=== PATIENT | male | born 1955 | race Caucasian/White ===

== ENCOUNTER 2017-07-29 18:42 | Emergency (ER) | payer MEDICAID ==
[2017-07-29 19:34] VITALS: BP 134/85
--- NOTE | 2017-07-29 19:48 | EDM.PDOC ---
ED HPI GENERAL MEDICAL PROBLEM - General Chief Complaint: Upper Extremity Injury/Pain Stated Complaint: BULGE IN WRIST Time Seen by Provider: 07/29/17 19:43 Source of Information: Reports: Patient, RN Notes Reviewed History Limitations: Reports: No Limitations - History of Present Illness INITIAL COMMENTS - FREE TEXT/NARRATIVE: 62-year-old gentleman presents emergency department today with complaint of swelling over his right wrist, he denies any trauma is not taking any blood thinners he states it is really developed over the last hour did go to chiropractor today lab work done on his back, nothing was done to his wrist. Right Wrist Pain Score (Numeric/FACES): 5 - Related Data Allergies Allergy/AdvReac Type Severity Reaction Status Date / Time No Known Allergies Allergy Verified 07/29/17 19:17 Home Meds: Home Meds Carvedilol [Carvedilol] 25 mg PO BID 07/29/17 [History] DULoxetine HCl [Duloxetine HCl] 60 mg PO DAILY 07/29/17 [History] Losartan Potassium [Losartan Potassium] 25 mg PO BEDTIME 07/29/17 [History] Omeprazole [Omeprazole] 20 mg PO DAILY 07/29/17 [History] Phenytoin Sodium Extended [Phenytek] 400 mg PO DAILY 07/29/17 [History] hydrOXYzine Pamoate [Hydroxyzine Pamoate] 25 mg PO DAILY 07/29/17 [History] traZODone HCl [Trazodone HCl] 200 mg PO BEDTIME 07/29/17 [History] Past Medical History HEENT History: Reports: Impaired Vision Cardiovascular History: Reports: Arrhythmia, Automatic Implantable Cardioverter Defibrillators Musculoskeletal History: Reports: Arthritis, Fracture Neurological History: Reports: Concussion, Seizure Psychiatric History: Reports: Anxiety - Past Surgical History Cardiovascular Surgical History: Reports: AICD Musculoskeletal Surgical History: Reports: Hip Replacement, Other (See Below) Other Musculoskeletal Surgeries/Procedures:: arm repair Social & Family History - Tobacco Use Smoking Status *Q: Never Smoker - Caffeine Use Caffeine Use: Reports: Tea - Recreational Drug Use Recreational Drug Use: No Review of Systems - Review of Systems Review Of Systems: See Below Respiratory: Reports: No Symptoms Cardiovascular: Reports: No Symptoms GI/Abdominal: Reports: No Symptoms Musculoskeletal: Reports: Joint Pain Skin: Reports: Bruising, Change in Color, Other ED EXAM, GENERAL - Physical Exam Exam: See Below Free Text/Narrative:: Examination of the right wrist he does have a hematoma about the size of a golf ball on the dorsal aspect of the wrist he has full range of motion of the wrist radial pulse is +2 Exam Limited By: No Limitations General Appearance: Alert, WD/WN, No Apparent Distress Course - Vital Signs Last Recorded V/S: Last Vital Signs Temp 97.3 F 07/29/17 19:32 Pulse 90 07/29/17 19:32 Resp 16 07/29/17 19:32 BP 134/85 07/29/17 19:32 Pulse Ox 96 07/29/17 19:32 - Orders/Labs/Meds Labs: Laboratory Tests 07/29/17 Range/Units 19:54 WBC 4.1 L (4.5-11.0) K/uL RBC 3.14 L (4.30-5.90) M/uL Hgb 11.1 L (12.0-15.0) g/dL Hct 31.5 L (40.0-54.0) % MCV 100 H (80-98) fL MCH 35 H (27-31) pg MCHC 35 (32-36) % Plt Count 132 L (150-400) K/uL Neut % (Auto) 47 (36-66) % Lymph % (Auto) 30 (24-44) % [place] % (Auto) 20 H (2-6) % Eos % (Auto) 3 (2-4) % Baso % (Auto) 1 (0-1) % Departure - Departure Time of Disposition: 20:58 Disposition: Home, Self-Care 01 Condition: Good Clinical Impression: Hematoma - Discharge Information Referrals: PCP,None [Primary Care Provider] - Forms: ED Department Discharge Additional Instructions: Continue to use the compression wrap and tell the hematoma subsides, Please followup with your primary care provider in 3-5 days if not better, please call return to the emergency department with worsening of symptoms. 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 This note was dictated using [employer] voice recognition software please call with any questions.
== END 2017-07-29 21:08 | disposition home or self-care (01) ==
LOC: JP.ED 18:42
DX: M79.81 Nontraumatic hematoma of soft tissue (principal); M19.90 Unspecified osteoarthritis, unspecified site; F41.9 Anxiety disorder, unspecified; Z79.899 Other long term (current) drug therapy; Z95.810 Presence of automatic (implantable) cardiac defibrillator; Z96.649 Presence of unspecified artificial hip joint; Z98.890 Other specified postprocedural states
CPT/HCPCS: 36415; 85025; 99283; 99284

== ENCOUNTER 2019-06-07 20:34 | Emergency (ER) | payer MEDICAID ==
[2019-06-07 20:54] VITALS: BP 97/70; PULSE 72
--- NOTE | 2019-06-07 21:01 | EDM.PDOC ---
ED HPI GENERAL MEDICAL PROBLEM - General Chief Complaint: Genitourinary Problem Stated Complaint: POTASSIUM Time Seen by Provider: 06/07/19 21:00 Source of Information: Reports: Patient, Provider History Limitations: Reports: No Limitations - History of Present Illness INITIAL COMMENTS - FREE TEXT/NARRATIVE: 64-year-old male in for a potassium recheck. Patient is been having ongoing problem with peripheral edema, being followed by his primary provider. Some labs were drawn yesterday, and the provider was called today that his potassium was 9.0. He was sent in for verification. He has no palpitations, increasing shortness of breath but does still struggle with a peripheral edema and weight gain. Onset: Gradual Duration: Week(s): (Symptoms have been worsening over the past 4 weeks) Associated Symptoms: Reports: Shortness of Breath (With activity). Denies: Cough - Related Data Allergies Allergy/AdvReac Type Severity Reaction Status Date / Time No Known Allergies Allergy Verified 06/07/19 20:53 Home Meds: Home Meds Carvedilol 25 mg PO BID 07/29/17 [History] Omeprazole 20 mg PO DAILY 07/29/17 [History] traZODone HCl [Trazodone HCl] 200 mg PO BEDTIME 07/29/17 [History] Amiodarone [Cordarone] 400 mg PO DAILY 06/07/19 [History] Calcium Carbonate/Vitamin D3 [Calcium 600 + Vit D Tablet] 1 tab PO TID 06/07/19 [History] Cholecalciferol (Vitamin D3) [Vitamin D3] 1,000 unit PO DAILY 06/07/19 [History] Cyanocobalamin (Vitamin B-12) [Vitamin B12] 2,500 mcg PO DAILY 06/07/19 [History ] Folic Acid 20 mg PO DAILY 06/07/19 [History] Furosemide 1 tab PO DAILY 06/07/19 [History] Gabapentin [Neurontin] 600 mg PO BEDTIME 06/07/19 [History] Iron Polysaccharide Complex [Ferric X-150] 150 mg PO DAILY 06/07/19 [History] Multivitamin [Multivitamins] 1 tab PO DAILY 06/07/19 [History] Sacubitril/Valsartan [Entresto 97 mg-103 mg Tablet] 1 tab PO BID 06/07/19 [ History] Thiamine [Vitamin B-1] 100 mg PO DAILY 06/07/19 [History] Vitamin E 100 unit PO DAILY 06/07/19 [History] busPIRone HCl [Buspirone HCl] 10 mg PO BID 06/07/19 [History] Past Medical History HEENT History: Reports: Impaired Vision Cardiovascular History: Reports: Arrhythmia, Automatic Implantable Cardioverter Defibrillators Genitourinary History: Reports: Chronic Renal Insuffiency Musculoskeletal History: Reports: Arthritis, Fracture Neurological History: Reports: Concussion, Seizure Psychiatric History: Reports: Anxiety Endocrine/Metabolic History: Reports: Obesity/BMI 30+ Hematologic History: Reports: Blood Transfusion(s) - Past Surgical History Cardiovascular Surgical History: Reports: AICD GI Surgical History: Reports: Colonoscopy Musculoskeletal Surgical History: Reports: Hip Replacement, Other (See Below) Other Musculoskeletal Surgeries/Procedures:: arm repair Social & Family History - Tobacco Use Smoking Status *Q: Never Smoker - Caffeine Use Caffeine Use: Reports: Tea - Alcohol Use Days Per Week of Alcohol Use: 4 Number of Drinks Per Day: 2 Total Drinks Per Week: 8 - Recreational Drug Use Recreational Drug Use: Yes Drug Use in Last 12 Months: No ED ROS GENERAL - Review of Systems Review Of Systems: See Below Constitutional: Reports: Weakness. Denies: Fever, Chills Respiratory: Reports: Shortness of Breath Cardiovascular: Denies: Chest Pain (With activity), Palpitations GI/Abdominal: Denies: Nausea, Vomiting Skin: Reports: Bruising ED EXAM, GENERAL - Physical Exam Exam: See Below Exam Limited By: No Limitations General Appearance: Alert, No Apparent Distress Respiratory/Chest: No Respiratory Distress, Lungs Clear Cardiovascular: Regular Rate, Rhythm GI/Abdominal: Soft, Non-Tender Extremities: Pedal Edema (Symmetric 2+ pitting edema) Neurological: Alert, Oriented Course - Vital Signs Last Recorded V/S: Last Vital Signs Temp 95.9 F 06/07/19 20:58 Pulse 72 06/07/19 20:58 Resp 16 06/07/19 20:58 BP 97/70 06/07/19 20:58 Pulse Ox 93 L 06/07/19 20:58 - Orders/Labs/Meds Labs: Laboratory Tests 06/07/19 Range/Units 21:00 Sodium 125 L (140-148) mmol/L Potassium 4.7 (3.6-5.2) mmol/L Chloride 90 L (100-108) mmol/L Carbon Dioxide 23 (21-32) mmol/L Anion Gap 16.7 H (5.0-14.0) mmol/L BUN 37 H (7-18) mg/dL Creatinine 1.9 H (0.8-1.3) mg/dL Est Cr Clr Drug Dosing 37.21 mL/min Estimated GFR (MDRD) 36 L (>60) Glucose 92 (74-106) mg/dL Calcium 8.4 L (8.5-10.1) mg/dL - Re-Assessments/Exams Free Text/Narrative Re-Assessment/Exam: 06/07/19 21:35 CBC and BMP were obtained. Potassium returned 4.7. Earlier results were obviously an error. Sodium is 125 but I do not know his baseline is. He has several appointments coming up in the near future with cardiology and nephrology , a copy of his labs were given to the patient and he will take them with to his appointments. No medication changes. Departure - Departure Time of Disposition: 21:42 Disposition: Home, Self-Care 01 Clinical Impression: Peripheral edema Renal failure Qualifiers: Renal failure chronicity: chronic - Discharge Information Instructions: Edema Referrals: PCP,None [Primary Care Provider] - Forms: ED Department Discharge Care Plan Goals: Continue your current medications and follow-up appointments as scheduled. Avoid extra salt intake. Return to the emergency room if worsening such as increased shortness of breath or pain.
== END 2019-06-07 21:42 | disposition home or self-care (01) ==
LOC: JP.ED 20:34
DX: R60.9 Edema, unspecified (principal); N18.9 Chronic kidney disease, unspecified; F41.9 Anxiety disorder, unspecified; E66.9 Obesity, unspecified; Z68.30 Body mass index [BMI] 30.0-30.9, adult; Z79.899 Other long term (current) drug therapy
CPT/HCPCS: 36415; 80048; 99284

== ENCOUNTER 2019-11-03 12:06 | Emergency (ER) | payer MEDICAID ==
[2019-11-03] MEDS ORDERED: fentaNYL 100 MCG/2 ML SDV IVPUSH ONE ×2 (12:58→14:37)
--- NOTE | 2019-11-03 13:00 | EDM.PDOC ---
ED HPI GENERAL MEDICAL PROBLEM - General Chief Complaint: Lower Extremity Injury/Pain Stated Complaint: MEDICAL VIA [facility] Time Seen by Provider: 11/03/19 12:56 Source of Information: Reports: Patient, Family, RN Notes Reviewed History Limitations: Reports: No Limitations - History of Present Illness INITIAL COMMENTS - FREE TEXT/NARRATIVE: 64-year-old gentleman presents emergency department today via EMS services, he slipped and fell on the ice this morning and his right ankle twisted underneath him he now is experiencing severe pain in that right ankle it is splinted and wrapped at this time. Right Ankle Pain Score (Numeric/FACES): 9 - Related Data Allergies Allergy/AdvReac Type Severity Reaction Status Date / Time No Known Allergies Allergy Verified 11/03/19 12:22 Home Meds: Home Meds Omeprazole 20 mg PO DAILY 07/29/17 [History] carvediloL [Carvedilol] 25 mg PO BID 07/29/17 [History] traZODone HCl [Trazodone HCl] 200 mg PO BEDTIME 07/29/17 [History] Calcium Carbonate/Vitamin D3 [Calcium 600 + Vit D Tablet] 1 tab PO TID 06/07/19 [History] Cholecalciferol (Vitamin D3) [Vitamin D3] 1,000 unit PO DAILY 06/07/19 [History] Cyanocobalamin (Vitamin B-12) [Vitamin B12] 2,500 mcg PO DAILY 06/07/19 [History ] Folic Acid 20 mg PO DAILY 06/07/19 [History] Furosemide 1 tab PO DAILY 06/07/19 [History] Gabapentin [Neurontin] 600 mg PO BEDTIME 06/07/19 [History] Iron Polysaccharide Complex [Ferric X-150] 150 mg PO DAILY 06/07/19 [History] Multivitamin [Multivitamins] 1 tab PO DAILY 06/07/19 [History] Sacubitril/Valsartan [Entresto 97 mg-103 mg Tablet] 1 tab PO BID 06/07/19 [ History] Thiamine [Vitamin B-1] 100 mg PO DAILY 06/07/19 [History] Vitamin E 100 unit PO DAILY 06/07/19 [History] busPIRone HCl [Buspirone HCl] 10 mg PO BID 06/07/19 [History] Past Medical History HEENT History: Reports: Impaired Vision Cardiovascular History: Reports: Arrhythmia, Automatic Implantable Cardioverter Defibrillators Genitourinary History: Reports: Chronic Renal Insuffiency Musculoskeletal History: Reports: Arthritis, Fracture Neurological History: Reports: Concussion, Seizure Psychiatric History: Reports: Anxiety Endocrine/Metabolic History: Reports: Obesity/BMI 30+ Hematologic History: Reports: Blood Transfusion(s) - Past Surgical History Cardiovascular Surgical History: Reports: AICD GI Surgical History: Reports: Colonoscopy Musculoskeletal Surgical History: Reports: Hip Replacement, Other (See Below) Other Musculoskeletal Surgeries/Procedures:: arm repair Social & Family History - Tobacco Use Smoking Status *Q: Never Smoker - Caffeine Use Caffeine Use: Reports: Tea - Recreational Drug Use Recreational Drug Use: No Review of Systems - Review of Systems Review Of Systems: See Below Musculoskeletal: Reports: Joint Pain (Ankle pain) Neurological: Reports: No Symptoms ED EXAM, GENERAL - Physical Exam Exam: See Below Free Text/Narrative:: Examination the right ankle is splinted and wrapped pedal pulses +2 it does have an obvious deformity Exam Limited By: No Limitations General Appearance: Alert, WD/WN, No Apparent Distress ED TRAUMA EXTREMITY PROCEDURES - Splinting Right Lower Extremity Splint Site: Right ankle Pre-Procedure NV Status: Normal Post-Procedure NV Status: Normal Splint Material: Fiberglass Splint Design: Posterior Applied & Form Fitted By: Provider, Nurse Provider Post-Splint Application NV Check: NV Status Normal, Good Position Complications: No Course - Vital Signs Last Recorded V/S: Last Vital Signs Temp 96.4 F 11/03/19 12:24 Pulse 84 11/03/19 12:24 Resp 16 11/03/19 12:24 BP 114/83 11/03/19 12:24 Pulse Ox 94 L 11/03/19 12:24 - Orders/Labs/Meds Meds: Medications Discontinued Medications Generic Name Dose Route Start Last Admin Trade Name Freq PRN Reason Stop Dose Admin Fentanyl 100 mcg 11/03/19 12:58 11/03/19 13:08 Sublimaze IVPUSH 11/03/19 12:59 100 mcg ONETIME ONE Administration Fentanyl 100 mcg 11/03/19 14:37 11/03/19 15:20 Sublimaze IVPUSH 11/03/19 14:38 100 mcg ONETIME ONE Administration Departure - Departure Time of Disposition: 15:40 Disposition: DC/Tfer to Acute Hospital 02 Condition: Fair Clinical Impression: Tibia/fibula fracture Qualifiers: Encounter type: initial encounter Fracture type: closed Laterality: right Qualified Code(s): S82.201A - Unspecified fracture of shaft of right tibia, initial encounter for closed fracture; S82.401A - Unspecified fracture of shaft of right fibula, initial encounter for closed fracture - Discharge Information Referrals: David Rose MD [Primary Care Provider] - Forms: ED Department Discharge - Assessment/Plan Plan: Assessment Acuity = acute Site and laterality = oblique angulated fracture tib-fib right Etiology = secondary to a fall Manifestations = none Location of injury = Home Lab values = x-ray describes a fracture above Plan Initially called and discussed case with Dr. Martinez 1350 unfortunately did not have appropriate hardware to take care of this fracture, next call Dr. Hernandez at [address] [facility] also do not have the appropriate hardware to take care of this fracture, initially called [place] 1505, call back with acceptance from Dr. Holliday hospitalist pet adoption counselor [facility] kindly accepted the patient at 1530 he is placed in a posterior splint will be transported to [place] via EMS ground This note was dictated using [employer] voice recognition software please call with any questions on syntax or grammar.
--- NOTE | 2019-11-03 13:54 | CRLCR ---
INDICATION: Pain COMPARISON: none TECHNIQUE: Three-view right ankle FINDINGS: Fractures identified within the distal tibia and fibula with lateral angulation. The tibiotalar joint and subtalar joints remain anatomically aligned. Within the distal fibula there is a oblique fracture with mild medial displacement the distal fragment. Within the distal tibial metaphysis there is an oblique fracture with posterior and medial displacement of the distal fragment as well as 8-10 mm of foreshortening. No fractures are identified within the talus, calcaneus or base of the 5th metatarsal. IMPRESSION: Angulated oblique fractures noted within the distal right tibia and fibula. Dictated by Lei Christianson MD @ 11/03/2019 1:52:01 PM Dictated by: Lei Christianson MD @ 11/03/2019 13:52:06 (Electronically Signed)
[2019-11-03 15:47] VITALS: BP 122/81; PULSE 94
[2019-11-03] MEDS ORDERED: HYDROmorphone 1 MG/ML Syringe IVPUSH ONE (16:32)
== END 2019-11-03 17:49 ==
LOC: JP.ED 12:06
DX: S82.301A Unspecified fracture of lower end of right tibia, initial encounter for closed fracture (principal); S82.831A Other fracture of upper and lower end of right fibula, initial encounter for closed fracture; N18.9 Chronic kidney disease, unspecified; F41.9 Anxiety disorder, unspecified; E66.9 Obesity, unspecified; Z68.25 Body mass index [BMI] 25.0-25.9, adult; Z79.899 Other long term (current) drug therapy; W00.0XXA Fall on same level due to ice and snow, initial encounter
CPT/HCPCS: 29515; 73610; 96374; 96375; 96376; 99284; J1170; J3010

== ENCOUNTER 2020-05-23 11:38 | Emergency (ER) | payer MEDICAID ==
--- NOTE | 2020-05-23 12:30 | EDM.PDOC ---
ED HPI GENERAL MEDICAL PROBLEM - General Chief Complaint: Respiratory Problem Stated Complaint: TROUBLE BREATHING Time Seen by Provider: 05/23/20 12:29 Source of Information: Reports: Patient, Family (mother), Old Records History Limitations: Reports: No Limitations - History of Present Illness INITIAL COMMENTS - FREE TEXT/NARRATIVE: Shortness of breath markedly increasing in the last week. Patient states he cannot lie down because of his shortness of breath. He sleeps sitting up straight. Even minor exercise makes him markedly short of breath. Onset: Gradual Duration: Week(s): (1), Getting Worse Associated Symptoms: Reports: Shortness of Breath, Weakness - Related Data Allergies Allergy/AdvReac Type Severity Reaction Status Date / Time No Known Allergies Allergy Verified 05/23/20 12:12 Home Meds: Home Meds Omeprazole 20 mg PO DAILY 07/29/17 [History] carvediloL [Carvedilol] 25 mg PO BID 07/29/17 [History] traZODone HCl [Trazodone HCl] 200 mg PO BEDTIME 07/29/17 [History] Calcium Carbonate/Vitamin D3 [Calcium 600 + Vit D Tablet] 1 tab PO TID 06/07/19 [History] Cholecalciferol (Vitamin D3) [Vitamin D3] 1,000 unit PO DAILY 06/07/19 [History] Cyanocobalamin (Vitamin B-12) [Vitamin B12] 2,500 mcg PO DAILY 06/07/19 [History] Folic Acid 20 mg PO DAILY 06/07/19 [History] Furosemide 1 tab PO DAILY 06/07/19 [History] Gabapentin [Neurontin] 600 mg PO BEDTIME 06/07/19 [History] Iron Polysaccharide Complex [Ferric X-150] 150 mg PO DAILY 06/07/19 [History] Multivitamin [Multivitamins] 1 tab PO DAILY 06/07/19 [History] Thiamine [Vitamin B-1] 100 mg PO DAILY 06/07/19 [History] Vitamin E 100 unit PO DAILY 06/07/19 [History] busPIRone HCl [Buspirone HCl] 10 mg PO TID 06/07/19 [History] Past Medical History HEENT History: Reports: Impaired Vision Cardiovascular History: Reports: Arrhythmia, Automatic Implantable Cardioverter Defibrillators Genitourinary History: Reports: Chronic Renal Insuffiency Musculoskeletal History: Reports: Arthritis, Fracture Neurological History: Reports: Concussion, Seizure Psychiatric History: Reports: Anxiety Endocrine/Metabolic History: Reports: Obesity/BMI 30+ Hematologic History: Reports: Blood Transfusion(s) - Past Surgical History Cardiovascular Surgical History: Reports: AICD GI Surgical History: Reports: Colonoscopy Musculoskeletal Surgical History: Reports: Hip Replacement, Other (See Below) Other Musculoskeletal Surgeries/Procedures:: arm repair Social & Family History - Tobacco Use Smoking Status *Q: Never Smoker - Caffeine Use Caffeine Use: Reports: Tea - Alcohol Use Days Per Week of Alcohol Use: 7 Number of Drinks Per Day: 2 Total Drinks Per Week: 14 - Recreational Drug Use Recreational Drug Use: No ED ROS GENERAL - Review of Systems Review Of Systems: See Below Constitutional: Denies: Fever Respiratory: Reports: Shortness of Breath, Cough (Productive of white sputum). Denies: Wheezing Cardiovascular: Reports: Dyspnea on Exertion, Edema, Orthopnea, Other (Has an AICD but it hasn't defibrillated him). Denies: Palpitations, Syncope GI/Abdominal: Reports: Distension Skin: Reports: No Symptoms ED EXAM, GENERAL - Physical Exam Exam: See Below Exam Limited By: No Limitations General Appearance: Alert, Anxious Ears: Normal External Exam Nose: Normal Inspection Throat/Mouth: Normal Inspection Neck: Supple, Non-Tender Respiratory/Chest: Decreased Breath Sounds, Other (Faint bibasilar rales. Very faint breath sounds). No: Wheezing, Pleural Rub, Retractions Cardiovascular: Normal Peripheral Pulses, Regular Rate, Rhythm, Other (Pitting edema lower legs to the knees.) GI/Abdominal: Non-Tender, Distended Extremities: Pedal Edema (Marked lower ext. edema, pitting to knees) Neurological: Alert, Oriented Skin Exam: Warm, Dry Course - Vital Signs Text/Narrative:: obvious CHF on exam. Pt. immediately treated with lasix and neb. @14:20 I DISCUSSED PT. WITH HOSPITALIST IN [place]). Last Recorded V/S: Last Vital Signs Temp 35.8 C L 05/23/20 12:11 Pulse 85 05/23/20 13:52 Resp 17 05/23/20 13:52 BP 108/78 05/23/20 13:52 Pulse Ox 100 05/23/20 13:20 - Orders/Labs/Meds Orders: Active Orders 24 hr Category Date Time Status EKG Documentation Completion [RC] ASDIRECTED Care 05/23/20 12:41 Active RT Aerosol Therapy [RC] ASDIRECTED Care 05/23/20 12:43 Active UA W/MICROSCOPIC [URIN] Urgent Lab 05/23/20 12:40 Ordered Sodium Chloride 0.9% [Normal Saline] 1,000 ml Med 05/23/20 12:45 Active IV ASDIRECTED EKG 12 Lead [EK] Urgent Ther 05/23/20 12:40 Ordered Medication Orders Sodium Chloride (Normal Saline) 1,000 mls @ 75 mls/hr IV ASDIRECTED YOHAN Last Admin: 05/23/20 13:40 Dose: 75 mls/hr Documented by: ASHOK Labs: Laboratory Tests 05/23/20 05/23/20 05/23/20 Range/Units 12:46 12:46 12:46 WBC 5.1 (4.5-11.0) K/uL RBC 2.70 L (4.30-5.90) M/uL Hgb 10.3 L (12.0-15.0) g/dL Hct 30.6 L (40.0-54.0) % MCV 113 H (80-98) fL MCH 38 H (27-31) pg MCHC 34 (32-36) % Plt Count 88 L (150-400) K/uL PT 14.9 H (9.5-12.0) sec INR 1.41 H (0.80-1.20) Sodium (140-148) mmol/L Potassium (3.6-5.2) mmol/L Chloride (100-108) mmol/L Carbon Dioxide (21-32) mmol/L Anion Gap (5.0-14.0) mmol/L BUN (7-18) mg/dL Creatinine (0.8-1.3) mg/dL Est Cr Clr Drug Dosing mL/min Estimated GFR (MDRD) (>60) Glucose (74-106) mg/dL Lactic Acid (0.4-2.0) mmol/L Calcium (8.5-10.1) mg/dL Total Bilirubin (0.2-1.0) mg/dL AST (15-37) U/L ALT (12-78) U/L Alkaline Phosphatase (46-116) U/L Troponin I 0.017 (0.000-0.056) ng/mL NT-Pro-B Natriuret Pep (5-125) pg/mL Total Protein (6.4-8.2) g/dL Albumin (3.4-5.0) g/dL Globulin (2.3-3.5) g/dL Albumin/Globulin Ratio (1.2-2.2) 05/23/20 05/23/20 Range/Units 12:46 12:46 WBC (4.5-11.0) K/uL RBC (4.30-5.90) M/uL Hgb (12.0-15.0) g/dL Hct (40.0-54.0) % MCV (80-98) fL MCH (27-31) pg MCHC (32-36) % Plt Count (150-400) K/uL PT (9.5-12.0) sec INR (0.80-1.20) Sodium 127 L (140-148) mmol/L Potassium 5.0 (3.6-5.2) mmol/L Chloride 93 L (100-108) mmol/L Carbon Dioxide 26 (21-32) mmol/L Anion Gap 13.0 (5.0-14.0) mmol/L BUN 43 H (7-18) mg/dL Creatinine 1.6 H (0.8-1.3) mg/dL Est Cr Clr Drug Dosing 43.61 mL/min Estimated GFR (MDRD) 44 L (>60) Glucose 86 (74-106) mg/dL Lactic Acid 2.2 H (0.4-2.0) mmol/L Calcium 8.3 L (8.5-10.1) mg/dL Total Bilirubin 1.8 H (0.2-1.0) mg/dL AST 56 H (15-37) U/L ALT 56 (12-78) U/L Alkaline Phosphatase 106 (46-116) U/L Troponin I (0.000-0.056) ng/mL NT-Pro-B Natriuret Pep 13390 H (5-125) pg/mL Total Protein 6.3 L (6.4-8.2) g/dL Albumin 3.2 L (3.4-5.0) g/dL Globulin 3.1 (2.3-3.5) g/dL Albumin/Globulin Ratio 1.0 L (1.2-2.2) Meds: Medications Generic Name Dose Route Start Last Admin Trade Name Randolph PRN Reason Stop Dose Admin Sodium Chloride 1,000 mls @ 75 mls/hr 05/23/20 12:45 05/23/20 13:40 Normal Saline IV 75 mls/hr ASDIRECTED YOHAN Administration Discontinued Medications Generic Name Dose Route Start Last Admin Trade Name Randolph PRN Reason Stop Dose Admin Albuterol/Ipratropium 3 ml 05/23/20 12:43 05/23/20 13:19 Duoneb 3.0-0.5 Mg/3 Ml NEB 05/23/20 12:44 3 ml ONETIME ONE Administration Furosemide 40 mg 05/23/20 12:42 05/23/20 13:39 Lasix IVPUSH 05/23/20 12:43 40 mg ONETIME ONE Administration Departure - Departure Time of Disposition: 14:26 Disposition: DC/Tfer to Acute Hospital 02 Condition: Fair Clinical Impression: Congestive heart failure Qualifiers: Heart failure type: combined systolic and diastolic Heart failure chronicity: acute on chronic Qualified Code(s): I50.43 - Acute on chronic combined systolic (congestive) and diastolic (congestive) heart failure - Discharge Information Referrals: David Rose MD [Primary Care Provider] - Forms: ED Department Discharge, Interfacility Transfer [facility] Sepsis Event Note (ED) - Evaluation Sepsis Screening Result: No Definite Risk - Focused Exam Vital Signs: Vital Signs Temp Pulse Resp BP Pulse Ox 05/23/20 13:52 85 17 108/78 05/23/20 13:20 82 10 L 110/86 100 05/23/20 12:11 35.8 C L 80 13 109/81 99 05/23/20 12:00 35.8 C L 80 13 109/81 99 - My Orders Last 24 Hours: My Active Orders 05/23/20 12:40 UA W/MICROSCOPIC [URIN] Urgent EKG 12 Lead [EK] Urgent 05/23/20 12:41 EKG Documentation Completion [RC] ASDIRECTED 05/23/20 12:43 RT Aerosol Therapy [RC] ASDIRECTED 05/23/20 12:45 Sodium Chloride 0.9% [Normal Saline] 1,000 ml IV ASDIRECTED - Assessment/Plan Last 24 Hours: My Active Orders 05/23/20 12:40 UA W/MICROSCOPIC [URIN] Urgent EKG 12 Lead [EK] Urgent 05/23/20 12:41 EKG Documentation Completion [RC] ASDIRECTED 05/23/20 12:43 RT Aerosol Therapy [RC] ASDIRECTED 05/23/20 12:45 Sodium Chloride 0.9% [Normal Saline] 1,000 ml IV ASDIRECTED
[2020-05-23] MEDS ORDERED: Furosemide 40 MG/4 ML VIAL IVPUSH ONE (12:42)
[2020-05-23] MEDS ORDERED: Albuterol/Ipratropium 3.0-0.5 MG/3 ML Neb Soln NEB ONE (12:43)
[2020-05-23] MEDS ORDERED: Sodium Chloride 0.9% 1,000 ML IV SCH (12:45)
--- NOTE | 2020-05-23 13:24 | CR ---
CHEST: 2 view CLINICAL HISTORY:Dyspnea COMPARISON:None FINDINGS: Heart is enlarged. Patient has a permanent cardiac pacer. Pulmonary vascularity is normal. There is some patchy density in the right lower lobe. This may represent infiltrate or some segmental atelectasis. Impression: Cardiomegaly A right cardiac pacer Patchy right lower lobe density may represent some patchy infiltrate or atelectasis. Clinical correlation necessary.
[2020-05-23 14:41] VITALS: BP 118/84; PULSE 86
== END 2020-05-23 15:30 ==
LOC: JP.ED 11:38
DX: I50.43 Acute on chronic combined systolic (congestive) and diastolic (congestive) heart failure (principal); N18.9 Chronic kidney disease, unspecified; F41.9 Anxiety disorder, unspecified; E66.9 Obesity, unspecified; Z68.30 Body mass index [BMI] 30.0-30.9, adult
CPT/HCPCS: 36415; 71046; 80053; 81001; 83605; 83880; 84484; 85027; 85610; 93005; 94640; 96374; 99285; J1940; J7030; 93010; J7620-GY

== ENCOUNTER 2021-02-12 11:18 | Inpatient (IN) | payer MEDICARE, MEDICAID ==
[2021-02-12] MEDS ORDERED: Sodium Chloride 0.9% 10 ML Syringe FLUSH PRN ×2 (11:44→13:59)
--- NOTE | 2021-02-12 11:50 | EDM.PDOC ---
ED HPI GENERAL MEDICAL PROBLEM - General Chief Complaint: General Stated Complaint: WEAK VIA NORTH Time Seen by Provider: 02/12/21 11:40 Source of Information: Reports: Patient, EMS, Family, Old Records, RN History Limitations: Reports: Other (slow and incomplete patient responses to questions.) - History of Present Illness INITIAL COMMENTS - FREE TEXT/NARRATIVE: 66 yo male presents by EMS for progressive weakness over several days. Has not been eating normally. Denies any new pain or fever. Has not been drinking as much ETOH as usual these past days, does not elaborate. Denies tobacco use. Not able to stand today. Fell due to weakness yesterday but was able to get back up with assistance from his . Has not made any attempt to get in to see Dr. Connelly his primary. Onset: Gradual Duration: Day(s):, Getting Worse Location: Reports: Generalized Quality: Reports: Other (no new pain) Severity: Severe (weakness) Improves with: Reports: None Worsens with: Reports: Other (time) Context: Reports: Other (See HPI) Associated Symptoms: Reports: Shortness of Breath (chronic, not worse) Treatments [facility]: Reports: Other (see below) (none) generalized Pain Score (Numeric/FACES): 2 - Related Data Allergies Allergy/AdvReac Type Severity Reaction Status Date / Time No Known Allergies Allergy Verified 02/12/21 11:27 Home Meds: Home Meds Omeprazole 20 mg PO BID 07/29/17 [History] carvediloL [Carvedilol] 12.5 mg PO BID 07/29/17 [History] traZODone HCl [Trazodone HCl] 200 mg PO BEDTIME 07/29/17 [History] Calcium Carbonate/Vitamin D3 [Calcium 600 + Vit D Tablet] 1 tab PO TID 06/07/19 [History] Cholecalciferol (Vitamin D3) [Vitamin D3] 1,000 unit PO DAILY 06/07/19 [History] Cyanocobalamin (Vitamin B-12) [Vitamin B12] 2,500 mcg PO DAILY 06/07/19 [History] Folic Acid 20 mg PO DAILY 06/07/19 [History] Furosemide 1 tab PO DAILY 06/07/19 [History] Gabapentin [Neurontin] 600 mg PO BEDTIME 06/07/19 [History] Iron Polysaccharide Complex [Ferric X-150] 150 mg PO DAILY 06/07/19 [History] Multivitamin [Multivitamins] 1 tab PO DAILY 06/07/19 [History] Thiamine [Vitamin B-1] 100 mg PO DAILY 06/07/19 [History] Vitamin E 100 unit PO DAILY 06/07/19 [History] busPIRone HCl [Buspirone HCl] 10 mg PO TID 06/07/19 [History] Losartan [Cozaar] 25 mg PO DAILY 02/12/21 [History] carvediloL [Carvedilol] 12.5 mg PO BID 02/12/21 [History] Past Medical History HEENT History: Reports: Impaired Vision Cardiovascular History: Reports: Arrhythmia, Automatic Implantable Cardioverter Defibrillators Genitourinary History: Reports: Chronic Renal Insuffiency Musculoskeletal History: Reports: Arthritis, Fracture Neurological History: Reports: Concussion, Seizure Psychiatric History: Reports: Anxiety Endocrine/Metabolic History: Reports: Obesity/BMI 30+ Hematologic History: Reports: Blood Transfusion(s) - Past Surgical History Cardiovascular Surgical History: Reports: AICD GI Surgical History: Reports: Colonoscopy Musculoskeletal Surgical History: Reports: Hip Replacement, Other (See Below) Other Musculoskeletal Surgeries/Procedures:: arm repair Social & Family History - Caffeine Use Caffeine Use: Reports: Tea ED ROS GENERAL - Review of Systems Review Of Systems: See Below Constitutional: Reports: Malaise, Weakness HEENT: Reports: No Symptoms Respiratory: Reports: Shortness of Breath (not worse) Cardiovascular: Reports: No Symptoms Endocrine: Reports: No Symptoms GI/Abdominal: Reports: Anorexia : Reports: No Symptoms Musculoskeletal: Reports: No Symptoms Skin: Reports: Bruising Neurological: Reports: No Symptoms Psychiatric: Reports: No Symptoms ED EXAM, GENERAL - Physical Exam Exam: See Below Exam Limited By: No Limitations General Appearance: Alert, No Apparent Distress, Thin, Other (appears older than stated age. ) Eye Exam: Bilateral Eye: Normal Inspection Ears: Normal External Exam, Normal Canal, Hearing Grossly Normal Ear Exam: Bilateral Ear: Auricle Normal, Canal Normal Nose: Normal Inspection, No Blood Throat/Mouth: Normal Inspection, Normal Lips, Normal Oropharynx, Normal Voice, No Airway Compromise Head: Atraumatic, Normocephalic Neck: Normal Inspection Respiratory/Chest: No Respiratory Distress, Lungs Clear, Normal Breath Sounds, No Accessory Muscle Use Cardiovascular: Regular Rate, Rhythm, No Edema GI/Abdominal: Normal Bowel Sounds, Soft, Non-Tender, No Distention Back Exam: Normal Inspection. No: CVA Tenderness (R), CVA Tenderness (L) Extremities: Normal Inspection, Normal Range of Motion, Non-Tender, No Pedal Edema Neurological: Alert, Oriented, CN II-XII Intact, Normal Cognition, No Motor/Sensory Deficits, Other (sluggishly slow responses to questions, not overly talkative, has a resting tremor.) Psychiatric: Normal Affect, Normal Mood Skin Exam: Warm, Dry, Intact, Ecchymosis (scattered bruising over may areas that look to be from capillary fragility. ). No: Erythema, Increased Warmth, Petechiae, Wound/Incision Course - Vital Signs Text/Narrative:: Dr. Reeder called @ 12:30pm - Orders/Labs/Meds Orders: Active Orders 24 hr Category Date Time Status Cardiac Monitoring [RC] .As Directed Care 02/12/21 11:37 Active Hemoccult [OCCULT BLOOD DIAGNOSTIC] [OP] Stat Lab 02/12/21 12:23 Ordered UA W/MICROSCOPIC [URIN] Stat Lab 02/12/21 11:36 Ordered Sodium Chloride 0.9% [Saline Flush] Med 02/12/21 11:44 Active 10 ml FLUSH ASDIRECTED PRN Saline Lock Insert [OM.PC] Routine Oth 02/12/21 11:44 Ordered Medication Orders Sodium Chloride (Sodium Chloride 0.9% 10 Ml Syringe) 10 ml FLUSH ASDIRECTED PRN PRN Reason: Keep Vein Open Last Admin: 02/12/21 12:12 Dose: 10 ml Documented by: MELINDA Labs: Laboratory Tests 02/12/21 02/12/21 02/12/21 Range/Units 11:58 11:58 11:58 WBC 3.3 L (4.5-11.0) K/uL RBC 2.26 L (4.30-5.90) M/uL Hgb 8.6 L (12.0-15.0) g/dL Hct 24.8 L (40.0-54.0) % MCV 110 H (80-98) fL MCH 38 H (27-31) pg MCHC 35 (32-36) % Plt Count 71 L (150-400) K/uL Sodium 141 (140-148) mmol/L Potassium 3.6 (3.6-5.2) mmol/L Chloride 97 L (100-108) mmol/L Carbon Dioxide 23 (21-32) mmol/L Anion Gap 24.6 H (5.0-14.0) mmol/L BUN 16 D (7-18) mg/dL Creatinine 2.0 H (0.8-1.3) mg/dL Est Cr Clr Drug Dosing 34.43 mL/min Estimated GFR (MDRD) 34 L (>60) Glucose 93 (74-106) mg/dL Calcium 8.9 (8.5-10.1) mg/dL Total Bilirubin 2.0 H (0.2-1.0) mg/dL AST 256 H D (15-37) U/L ALT 99 H (12-78) U/L Alkaline Phosphatase 159 H (46-116) U/L Ammonia (11-32) mmol/L Troponin I 0.027 (0.000-0.056) ng/mL Total Protein 6.4 (6.4-8.2) g/dL Albumin 3.0 L (3.4-5.0) g/dL Globulin 3.4 (2.3-3.5) g/dL Albumin/Globulin Ratio 0.9 L (1.2-2.2) / Range/Units 11:58 WBC (4.5-11.0) K/uL RBC (4.30-5.90) M/uL Hgb (12.0-15.0) g/dL Hct (40.0-54.0) % MCV (80-98) fL MCH (27-31) pg MCHC (32-36) % Plt Count (150-400) K/uL Sodium (140-148) mmol/L Potassium (3.6-5.2) mmol/L Chloride (100-108) mmol/L Carbon Dioxide (21-32) mmol/L Anion Gap (5.0-14.0) mmol/L BUN (7-18) mg/dL Creatinine (0.8-1.3) mg/dL Est Cr Clr Drug Dosing mL/min Estimated GFR (MDRD) (>60) Glucose (74-106) mg/dL Calcium (8.5-10.1) mg/dL Total Bilirubin (0.2-1.0) mg/dL AST (15-37) U/L ALT (12-78) U/L Alkaline Phosphatase (46-116) U/L Ammonia 40 H (11-32) mmol/L Troponin I (0.000-0.056) ng/mL Total Protein (6.4-8.2) g/dL Albumin (3.4-5.0) g/dL Globulin (2.3-3.5) g/dL Albumin/Globulin Ratio (1.2-2.2) Meds: Medications Generic Name Dose Route Start Last Admin Trade Name Freq PRN Reason Stop Dose Admin Sodium Chloride 10 ml 02/12/21 11:44 02/12/21 12:12 Sodium Chloride 0.9% 10 Ml Syringe FLUSH 10 ml ASDIRECTED PRN Administration Keep Vein Open Departure - Departure Time of Disposition: 12:45 Disposition: Admitted As Inpatient 66 Condition: Fair Clinical Impression: Weakness, Elevated LFTs, Serum ammonia increased, Thrombocytopenia Anemia Qualifiers: Anemia type: unspecified type Qualified Code(s): D64.9 - Anemia, unspecified - Discharge Information Referrals: PCP,None [Ordering Only Provider] - Forms: ED Department Discharge - My Orders Last 24 Hours: My Active Orders 02/12/21 11:36 UA W/MICROSCOPIC [URIN] Stat 02/12/21 11:37 Cardiac Monitoring [RC] .As Directed 02/12/21 11:44 Sodium Chloride 0.9% [Saline Flush] 10 ml FLUSH ASDIRECTED PRN Saline Lock Insert [OM.PC] Routine 02/12/21 12:23 Hemoccult [OCCULT BLOOD DIAGNOSTIC] [OP] Stat - Assessment/Plan Last 24 Hours: My Active Orders 02/12/21 11:36 UA W/MICROSCOPIC [URIN] Stat 02/12/21 11:37 Cardiac Monitoring [RC] .As Directed 02/12/21 11:44 Sodium Chloride 0.9% [Saline Flush] 10 ml FLUSH ASDIRECTED PRN Saline Lock Insert [OM.PC] Routine 02/12/21 12:23 Hemoccult [OCCULT BLOOD DIAGNOSTIC] [OP] Stat
--- NOTE | 2021-02-12 12:42 | PCM.HP.2 ---
H&P History of Present Illness - General Date of Service: 02/12/21 Admit Problem/Dx: Admission Diagnosis/Problem Admission Diagnosis/Problem Weakness Source of Information: Patient, Family, Provider, RN Notes Reviewed History Limitations: Reports: No Limitations - History of Present Illness Initial Comments - Free Text/Narative: Mr. Austin is a 66-year-old gentleman who was admitted through the emergency department with tremulousness and progressive weakness. He has become progressively more weak over the past several weeks to the point where he was unable to get up and off of the floor this morning. He has been falling frequently and has been very unsteady on his feet. Appetite has been poor and he has not been eating much over the past few weeks. He denies nausea vomiting abdominal pain, just stating that he is not hungry. He does have a history of alcohol use although reports that his alcohol intake is been decreased recently when he has not been feeling well. He was brought into the emergency department because of his progressive weakness. Laboratory studies show evidence of pancytopenia and liver enzyme elevation. Not had any recent fever or chills and denies other symptoms of localized infection. He reports that the weakness is generalized and denies any focal neurologic symptoms. generalized Pain Score (Numeric/FACES): 2 - Related Data Allergies/Adverse Reactions: Allergies Allergy/AdvReac Type Severity Reaction Status Date / Time No Known Allergies Allergy Verified 02/12/21 11:27 Home Medications: Home Meds Omeprazole 20 mg PO BID 07/29/17 [History] carvediloL [Carvedilol] 12.5 mg PO BID 07/29/17 [History] traZODone HCl [Trazodone HCl] 200 mg PO BEDTIME 07/29/17 [History] Calcium Carbonate/Vitamin D3 [Calcium 600 + Vit D Tablet] 1 tab PO TID 06/07/19 [History] Cholecalciferol (Vitamin D3) [Vitamin D3] 1,000 unit PO DAILY 06/07/19 [History] Cyanocobalamin (Vitamin B-12) [Vitamin B12] 2,500 mcg PO DAILY 06/07/19 [Histor y] Folic Acid 20 mg PO DAILY 06/07/19 [History] Furosemide 1 tab PO DAILY 06/07/19 [History] Gabapentin [Neurontin] 600 mg PO BEDTIME 06/07/19 [History] Iron Polysaccharide Complex [Ferric X-150] 150 mg PO DAILY 06/07/19 [History] Multivitamin [Multivitamins] 1 tab PO DAILY 06/07/19 [History] Thiamine [Vitamin B-1] 100 mg PO DAILY 06/07/19 [History] Vitamin E 100 unit PO DAILY 06/07/19 [History] busPIRone HCl [Buspirone HCl] 10 mg PO TID 06/07/19 [History] Losartan [Cozaar] 25 mg PO DAILY 02/12/21 [History] carvediloL [Carvedilol] 12.5 mg PO BID 02/12/21 [History] Past Medical History HEENT History: Reports: Impaired Vision Cardiovascular History: Reports: Arrhythmia, Automatic Implantable Cardioverter Defibrillators, CAD, Cardiomyopathy, Heart Failure Gastrointestinal History: Reports: GERD Genitourinary History: Reports: Chronic Renal Insuffiency Musculoskeletal History: Reports: Arthritis, Fracture Neurological History: Reports: Concussion, Seizure Psychiatric History: Reports: Anxiety Endocrine/Metabolic History: Reports: Obesity/BMI 30+ Hematologic History: Reports: Blood Transfusion(s) - Past Surgical History Cardiovascular Surgical History: Reports: AICD GI Surgical History: Reports: Colonoscopy Musculoskeletal Surgical History: Reports: Hip Replacement, Other (See Below) Other Musculoskeletal Surgeries/Procedures:: arm repair Social & Family History - Family History Family Medical History: No Pertinent Family History - Tobacco Use Tobacco Use Status *Q: Never Tobacco User - Caffeine Use Caffeine Use: Reports: Tea - Alcohol Use Days Per Week of Alcohol Use: 3 Number of Drinks Per Day: 3 Total Drinks Per Week: 9 - Recreational Drug Use Recreational Drug Use: No H&P Review of Systems - Review of Systems: Review Of Systems: See Below General: Reports: Malaise, Weakness, Fatigue, Decreased Appetite. Denies: Fever, Chills HEENT: Reports: No Symptoms Pulmonary: Reports: Shortness of Breath. Denies: Wheezing, Pleuritic Chest Pain, Cough, Sputum, Hemoptysis Cardiovascular: Reports: Dyspnea on Exertion. Denies: Chest Pain, Palpitations, Orthopnea, PND, Edema, Lightheadedness, Syncope Gastrointestinal: Reports: No Symptoms Genitourinary: Reports: No Symptoms Musculoskeletal: Reports: No Symptoms Skin: Reports: No Symptoms Psychiatric: Reports: No Symptoms Neurological: Reports: Difficulty Walking, Weakness. Denies: Confusion, Headache, Numbness, Syncope, Trouble Speaking, Change in Speech Hematologic/Lymphatic: Reports: No Symptoms Immunologic: Reports: No Symptoms Exam - Exam Exam: See Below - Vital Signs Weight: 160 lb - Exam Quality Assessment: DVT Prophylaxis General: Alert, Oriented, Cooperative, Mild Distress HEENT: Conjunctiva Clear, Hearing Intact, Normal Nasal Septum, Posterior Pharynx Clear, Pupils Equal. No: Mucosa Moist & [place] Neck: Supple, Trachea Midline, +2 Carotid Pulse wo Bruit Lungs: Clear to Auscultation, Normal Respiratory Effort Cardiovascular: Regular Rate, Regular Rhythm, Normal S1, Normal S2. No: Systolic Murmur, Diastolic Murmur GI/Abdominal Exam: Soft, Non-Tender, No Organomegaly, No Distention Back Exam: Normal Inspection, Full Range of Motion Extremities: Non-Tender, No Pedal Edema Skin: Warm, Dry, Intact Neurological: Cranial Nerves Intact, Strength Equal Bilateral, Normal Speech, Normal Tone, Sensation Intact. No: Focal Deficit Neuro Extensive - Mental Status: Alert, Oriented x3, Normal Mood/Affect, Normal Cognition, Memory Intact - Patient Data Lab Results Last 24 hrs: Laboratory Results - last 24 hr 02/12/21 02/12/21 02/12/21 Range/Units 11:58 11:58 11:58 WBC 3.3 L (4.5-11.0) K/uL RBC 2.26 L (4.30-5.90) M/uL Hgb 8.6 L (12.0-15.0) g/dL Hct 24.8 L (40.0-54.0) % MCV 110 H (80-98) fL MCH 38 H (27-31) pg MCHC 35 (32-36) % Plt Count 71 L (150-400) K/uL Sodium 141 (140-148) mmol/L Potassium 3.6 (3.6-5.2) mmol/L Chloride 97 L (100-108) mmol/L Carbon Dioxide 23 (21-32) mmol/L Anion Gap 24.6 H (5.0-14.0) mmol/L BUN 16 D (7-18) mg/dL Creatinine 2.0 H (0.8-1.3) mg/dL Est Cr Clr Drug Dosing 34.43 mL/min Estimated GFR (MDRD) 34 L (>60) Glucose 93 (74-106) mg/dL Calcium 8.9 (8.5-10.1) mg/dL Total Bilirubin 2.0 H (0.2-1.0) mg/dL AST 256 H D (15-37) U/L ALT 99 H (12-78) U/L Alkaline Phosphatase 159 H (46-116) U/L Ammonia (11-32) mmol/L Troponin I 0.027 (0.000-0.056) ng/mL Total Protein 6.4 (6.4-8.2) g/dL Albumin 3.0 L (3.4-5.0) g/dL Globulin 3.4 (2.3-3.5) g/dL Albumin/Globulin Ratio 0.9 L (1.2-2.2) 02/12/21 Range/Units 11:58 WBC (4.5-11.0) K/uL RBC (4.30-5.90) M/uL Hgb (12.0-15.0) g/dL Hct (40.0-54.0) % MCV (80-98) fL MCH (27-31) pg MCHC (32-36) % Plt Count (150-400) K/uL Sodium (140-148) mmol/L Potassium (3.6-5.2) mmol/L Chloride (100-108) mmol/L Carbon Dioxide (21-32) mmol/L Anion Gap (5.0-14.0) mmol/L BUN (7-18) mg/dL Creatinine (0.8-1.3) mg/dL Est Cr Clr Drug Dosing mL/min Estimated GFR (MDRD) (>60) Glucose (74-106) mg/dL Calcium (8.5-10.1) mg/dL Total Bilirubin (0.2-1.0) mg/dL AST (15-37) U/L ALT (12-78) U/L Alkaline Phosphatase (46-116) U/L Ammonia 40 H (11-32) mmol/L Troponin I (0.000-0.056) ng/mL Total Protein (6.4-8.2) g/dL Albumin (3.4-5.0) g/dL Globulin (2.3-3.5) g/dL Albumin/Globulin Ratio (1.2-2.2) Result Diagrams: 02/12/21 11:58 02/12/21 11:58 *Q Meaningful Use (ADM) - VTE *Q VTE Pharmacological Contraindications *Q: Thrombocytopenia - VTE Risk Assess *Q Each Risk Factor Represents 1 Point: Congestive heart failure (CHF) Total Score 1 Point Risk Factors: 1 Each Risk Factor Represents 2 Points: Age 60 - 74 Years Total Score 2 Point Risk Factors: 2 Each Risk Factor Represents 3 Points: None Total Score 3 Point Risk Factors: 0 Each Risk Factor Represents 5 Points: None Total Score 5 Point Risk Factors: 0 Venous Thromboembolism Risk Factor Score *Q: 3 Problem List Initiated/Reviewed/Updated: Yes Orders Last 24hrs: Active Orders 24 hr Category Date Time Status Patient Status Manage Transfer [TRANSFER] Routine ADT 02/12/21 12:33 Ordered Cardiac Monitoring [RC] .As Directed Care 02/12/21 11:37 Active Hemoccult [OCCULT BLOOD DIAGNOSTIC] [OP] Stat Lab 02/12/21 12:23 Ordered UA W/MICROSCOPIC [URIN] Stat Lab 02/12/21 11:36 Ordered Sodium Chloride 0.9% [Saline Flush] Med 02/12/21 11:44 Active 10 ml FLUSH ASDIRECTED PRN Saline Lock Insert [OM.PC] Routine Oth 02/12/21 11:44 Ordered Resuscitation Status Routine Resus Stat 02/12/21 12:36 Ordered Medication Orders Sodium Chloride (Sodium Chloride 0.9% 10 Ml Syringe) 10 ml FLUSH ASDIRECTED PRN PRN Reason: Keep Vein Open Last Admin: 02/12/21 12:12 Dose: 10 ml Documented by: MELINDA Assessment/Plan Comment:: ASSESSMENT AND PLAN GENERALIZED WEAKNESS-progressive over the past few weeks, no focal neurologic findings. No evidence of underlying infection, significant metabolic abnormality, or medication effect. Appetite has been poor and is likely a contributing factor. History of longstanding alcohol use and abuse, may also be a factor. -CT scan of the head without contrast, consider MRI depending on results -IV fluids for hydration -Physical therapy consult -Monitor for other contributing factors during hospitalization PROBABLE ALCOHOL WITHDRAWAL-he is tremulous and somewhat slow to respond to questions -Banana bag -Alcohol withdrawal protocol -Gabapentin 400 mg p.o. every 8 hours x4 days, then 200 mg every 8 hours x4 days ELEVATED LIVER STUDIES-likely secondary to longstanding alcohol use and probable alcoholic hepatitis -Prothrombin time pending, to calculate Mad[place] discriminant function -CT scan of the abdomen and pelvis -Reassess labs in a.m. CHRONIC KIDNEY DISEASE STAGE IIIb-history of kidney dysfunction -Closely monitor urine output and renal function CONGESTIVE HEART FAILURE-status post defibrillator placement -Continue outpatient medical therapy -Echocardiogram to reassess left ventricular function MAINTENANCE ISSUES -DVT prophylaxis; SCUDs, not a candidate for anticoagulation because of thrombocytopenia -GI prophylaxis; continue outpatient PPI therapy -Paez catheter; not indicated -Nutrition; 2 g sodium diet -Nicotine dependence; not required CODE STATUS-FULL CODE ADMISSION STATUS-patient will be admitted to inpatient status, expect at least a 2 night hospital stay for evaluation and management of problems as outlined above. At the time of this admission I do not reasonably expected evaluation and management of this problem will require more than a 96 hour hospital stay. DISPOSITION-anticipate discharge to home after the hospital stay. PRIMARY CARE PROVIDER-Dr. Rose - Mortality Measure Prognosis:: Poor
[2021-02-12] MEDS ORDERED: Albuterol 0.083% 2.5 MG/3 ML Neb Soln NEB PRN (13:59)
[2021-02-12] MEDS ORDERED: Ondansetron 4 MG/2 ML SDV IV PRN (13:59)
[2021-02-12] MEDS ORDERED: Polyethylene Glycol 3350 Powder 17 GM Packet PO PRN (13:59)
[2021-02-12 14:01] LABS: CORONAVIRUS COVID-19 NAA NEGATIVE (NEGATIVE)
[2021-02-12] MEDS ORDERED: MVI, Adult with Vitamin K 10 ML, Thiamine 100 MG, Folic Acid 1 MG, Magnesium Sulfate 2 ... IV ONE ×5 (14:30)
[2021-02-12] MEDS: Gabapentin 400 MG Cap PO SCH ×2 (15:03→21:20)
--- NOTE | 2021-02-12 15:22 | CRLCT ---
INDICATION: Progressive weakness. COMPARISON: CT head 02/20/2013. TECHNIQUE: CT of the head without IV contrast. Coronal and sagittal reconstructions are provided. FINDINGS: No intracranial hemorrhage, mass effect, or evidence of acute infarct. No midline shift. No abnormal extra-axial fluid collections. Moderate generalized cerebral and cerebellar volume loss with associated mild ex vacuo dilation of lateral ventricles. This appears progressed compared to prior exam. Mild chronic small vessel ischemic disease. The visualized orbits and extraocular muscles are symmetric. Paranasal sinuses and mastoid air cells are clear. No acute fracture. Stable sclerotic lesion in the right anterior frontal bone which is likely benign given stability (series 3, image 16). Soft tissues are unremarkable. IMPRESSION: : 1. No acute intracranial findings. 2. Moderate generalized cerebral volume loss which has progressed since prior exam. Please note that all CT scans at this facility use dose modulation, iterative reconstruction, and/or weight-based dosing when appropriate to reduce radiation dose to as low as reasonably achievable. Dictated by Lorna Rao MD @ Feb 12 2021 3:14PM Signed by Dr. Lorna Rao @ Feb 12 2021 3:20PM
--- NOTE | 2021-02-12 15:28 | CRLCT ---
INDICATION: Elevated bilirubin and transaminases. COMPARISON: None available TECHNIQUE: CT examination of the abdomen and pelvis was performed without contrast enhancement using 3 mm thick axial sections from the lung bases through the pubic symphysis. Oral contrast was not administered. Please note that all CT scans at this facility use dose modulation, iterative reconstruction, and/or weight-based dosing when appropriate to reduce radiation dose to as low as reasonably achievable. FINDINGS: In the abdomen, the liver is very low in density, representing severe fatty infiltration. There is no sign of mass. The spleen, pancreas and adrenals are normal in appearance. The unenhanced kidneys are normal in appearance. There is mild cholelithiasis, with several small calcified dependent calculi in the gallbladder. There is no sign of acute cholecystitis, with no sign of gallbladder wall thickening or pericholecystic fluid. The abdominal aorta is normal in caliber with no sign of dilatation. There is no sign of retroperitoneal mass or adenopathy. The stomach, loops of small bowel, and colon in the abdomen are normal in appearance. In the pelvis, the appendix is member appendix The loops of small bowel and colon in the pelvis are normal in appearance. The prostate is normal in appearance. The urinary bladder is normal in appearance. There is no sign of pelvic or inguinal mass or adenopathy. There is no sign of free air or free fluid in the abdomen or pelvis. There is a calcified granuloma in the posterior right lung base. Another calcified granuloma is seen along the lateral aspect of the dome of the right hemidiaphragm in the right lung base. There is a nonspecific noncalcified 6 millimeter nodule in the posterior-medial left lower lobe on axial image 17 series 2. This can be followed with Fleischner Society criteria. The lung bases are otherwise clear. Leads from a defibrillator are seen terminating in the right ventricle and coronary sinus. The heart is normal in size. The components of a right total hip prosthesis are in anatomic alignment with no sign of fracture, loosening, or dislocation. There is no sign of fracture of the [place] osseous structures. There is minimal scoliosis of the lumbar spine convex towards the right. There is mild L2-3 and L3-4 disc degenerative disease. There is a moderate diffuse L4-5 disc bulge which probably produces mild spinal stenosis. The L4-5 disc space is mildly decreased in height representing mild disc degenerative disease. IMPRESSION: CT of the abdomen shows prominent fatty infiltration of the liver. Mild cholelithiasis with no sign of acute cholecystitis. Normal CT of the pelvis without contrast. Please note that all CT scans at this facility use dose modulation, iterative reconstruction, and/or weight-based dosing when appropriate to reduce radiation dose to as low as reasonably achievable. Dictated by Marito Villasenor MD @ Feb 12 2021 3:17PM Signed by Dr. Marito Villasenor @ Feb 12 2021 3:26PM
[2021-02-12] MEDS: Pantoprazole 40 MG Tab.CR PO SCH (15:49)
[2021-02-12] MEDS: Ferrous Sulfate 325 MG Tab PO SCH (21:20)
[2021-02-12] MEDS: Carvedilol 12.5 MG Tab PO SCH (21:20)
[2021-02-13] MEDS: Sodium Chloride 0.9% 1,000 ML IV SCH ×2 (00:59→08:55)
[2021-02-13] MEDS: Gabapentin 400 MG Cap PO SCH ×3 (06:04→21:12)
[2021-02-13] MEDS: Pantoprazole 40 MG Tab.CR PO SCH ×2 (08:10→16:26)
[2021-02-13] MEDS ORDERED: Potassium Chloride 20 MEQ Tab.ER PO ONE (08:15)
[2021-02-13] MEDS: Cyanocobalamin (Vitamin B12) 1,000 MCG Tab PO SCH (08:19)
[2021-02-13] MEDS: Folic Acid 1 MG Tab PO SCH (08:21)
[2021-02-13] MEDS: Carvedilol 12.5 MG Tab PO SCH ×2 (08:22→21:12)
[2021-02-13] MEDS: Thiamine 100 MG Tab PO SCH (08:23)
[2021-02-13] MEDS: Losartan 25 MG Tab PO SCH (08:23)
[2021-02-13] MEDS: Ferrous Sulfate 325 MG Tab PO SCH ×2 (08:24→21:12)
[2021-02-13] MEDS: Magnesium Sulfate/Water 2 GM/50 ML BAG IV SCH ×2 (08:28→14:22)
[2021-02-13] MEDS: Magnesium Oxide 400 MG Tab PO SCH ×2 (08:28→21:12)
[2021-02-13] MEDS ORDERED: FOLIC ACID 20 MG PO SCH (09:00)
--- NOTE | 2021-02-13 10:53 | PCM.PN ---
- General Info Date of Service: 02/13/21 Subjective Update: Mr. Austin has felt somewhat improved from admission with less weakness and tremulousness, currently denies hallucinations. Following hydration hemoglobin has dropped to 6.9 which is likely secondary to dilution. White blood cell count and platelets also remain low with macrocytic red blood cell indices. Likely secondary to underlying myelodysplastic syndrome. Echocardiogram obtained this morning shows severely decreased left ventricular systolic functio n with severe mitral regurgitation and grade 2 diastolic dysfunction. Functional Status: Reports: Tolerating Diet, Ambulating, Urinating - Review of Systems General: Reports: Weakness, Fatigue. Denies: Fever, Chills Pulmonary: Reports: Shortness of Breath. Denies: Pleuritic Chest Pain, Cough, Sputum, Hemoptysis, Wheezing Cardiovascular: Reports: Dyspnea on Exertion. Denies: Chest Pain, Palpitations, Orthopnea, PND, Edema, Lightheadedness Gastrointestinal: Reports: No Symptoms - Patient Data Vitals - Most Recent: Last Vital Signs Temp 99.4 F 02/13/21 10:00 Pulse 81 02/13/21 10:00 Resp 14 02/13/21 10:00 BP 106/64 02/13/21 10:00 Pulse Ox 100 02/13/21 08:00 Weight - Most Recent: 157 lb 9.594 oz I&O - Last 24 Hours: Intake & Output 02/12/21 02/13/21 02/13/21 22:59 06:59 14:59 Intake Total 1359 1293 0 Output Total 125 Balance 1359 1168 0 Lab Results Last 24 Hours: Laboratory Results - last 24 hr 02/12/21 02/12/21 02/12/21 Range/Units 11:58 11:58 11:58 WBC 3.3 L (4.5-11.0) K/uL RBC 2.26 L (4.30-5.90) M/uL Hgb 8.6 L (12.0-15.0) g/dL Hct 24.8 L (40.0-54.0) % MCV 110 H (80-98) fL MCH 38 H (27-31) pg MCHC 35 (32-36) % Plt Count 71 L (150-400) K/uL Neut % (Auto) (36-66) % Lymph % (Auto) (24-44) % [place] % (Auto) (2-6) % Eos % (Auto) (2-4) % Baso % (Auto) (0-1) % PT (9.5-12.0) sec INR (0.80-1.20) Sodium 141 (140-148) mmol/L Potassium 3.6 (3.6-5.2) mmol/L Chloride 97 L (100-108) mmol/L Carbon Dioxide 23 (21-32) mmol/L Anion Gap 24.6 H (5.0-14.0) mmol/L BUN 16 D (7-18) mg/dL Creatinine 2.0 H (0.8-1.3) mg/dL Est Cr Clr Drug Dosing 34.43 mL/min Estimated GFR (MDRD) 34 L (>60) Glucose 93 (74-106) mg/dL Calcium 8.9 (8.5-10.1) mg/dL Magnesium (1.8-2.4) mg/dL Total Bilirubin 2.0 H (0.2-1.0) mg/dL AST 256 H D (15-37) U/L ALT 99 H (12-78) U/L Alkaline Phosphatase 159 H (46-116) U/L Ammonia (11-32) mmol/L Troponin I 0.027 (0.000-0.056) ng/mL Total Protein 6.4 (6.4-8.2) g/dL Albumin 3.0 L (3.4-5.0) g/dL Globulin 3.4 (2.3-3.5) g/dL Albumin/Globulin Ratio 0.9 L (1.2-2.2) Urine Color (YELLOW) Urine Appearance (CLEAR) Urine pH (5.0-8.0) Ur Specific [place] (1.008-1.030) Urine Protein (NEGATIVE) mg/dL Urine Glucose (UA) (NEGATIVE) mg/dL Urine Ketones (NEGATIVE) mg/dL Urine Occult Blood (NEGATIVE) Urine Nitrite (NEGATIVE) Urine Bilirubin (NEGATIVE) Urine Urobilinogen (0.2-1.0) EU/dL Ur Leukocyte Esterase (NEGATIVE) Urine RBC (0-5) Urine WBC (0-5) Ur Epithelial Cells Amorphous Sediment Urine Bacteria Urine Mucus Urine Other Influenza Type A RNA (NEGATIVE) RSV RNA (INAAT) (NEGATIVE) Influenza Type B RNA (NEGATIVE) SARS-CoV-2 RNA (DIONNA) (NEGATIVE) Blood Type Gel Antibody Screen Crossmatch 02/12/21 02/12/21 02/12/21 Range/Units 11:58 13:21 14:12 WBC (4.5-11.0) K/uL RBC (4.30-5.90) M/uL Hgb (12.0-15.0) g/dL Hct (40.0-54.0) % MCV (80-98) fL MCH (27-31) pg MCHC (32-36) % Plt Count (150-400) K/uL Neut % (Auto) (36-66) % Lymph % (Auto) (24-44) % [place] % (Auto) (2-6) % Eos % (Auto) (2-4) % Baso % (Auto) (0-1) % PT 12.9 H (9.5-12.0) sec INR 1.19 (0.80-1.20) Sodium (140-148) mmol/L Potassium (3.6-5.2) mmol/L Chloride (100-108) mmol/L Carbon Dioxide (21-32) mmol/L Anion Gap (5.0-14.0) mmol/L BUN (7-18) mg/dL Creatinine (0.8-1.3) mg/dL Est Cr Clr Drug Dosing mL/min Estimated GFR (MDRD) (>60) Glucose (74-106) mg/dL Calcium (8.5-10.1) mg/dL Magnesium (1.8-2.4) mg/dL Total Bilirubin (0.2-1.0) mg/dL AST (15-37) U/L ALT (12-78) U/L Alkaline Phosphatase (46-116) U/L Ammonia 40 H (11-32) mmol/L Troponin I (0.000-0.056) ng/mL Total Protein (6.4-8.2) g/dL Albumin (3.4-5.0) g/dL Globulin (2.3-3.5) g/dL Albumin/Globulin Ratio (1.2-2.2) Urine Color (YELLOW) Urine Appearance (CLEAR) Urine pH (5.0-8.0) Ur Specific [place] (1.008-1.030) Urine Protein (NEGATIVE) mg/dL Urine Glucose (UA) (NEGATIVE) mg/dL Urine Ketones (NEGATIVE) mg/dL Urine Occult Blood (NEGATIVE) Urine Nitrite (NEGATIVE) Urine Bilirubin (NEGATIVE) Urine Urobilinogen (0.2-1.0) EU/dL Ur Leukocyte Esterase (NEGATIVE) Urine RBC (0-5) Urine WBC (0-5) Ur Epithelial Cells Amorphous Sediment Urine Bacteria Urine Mucus Urine Other Influenza Type A RNA Negative (NEGATIVE) RSV RNA (INAAT) Negative (NEGATIVE) Influenza Type B RNA Negative (NEGATIVE) SARS-CoV-2 RNA (DIONNA) Negative (NEGATIVE) Blood Type Gel Antibody Screen Crossmatch 02/13/21 02/13/21 02/13/21 Range/Units 04:44 04:46 04:53 WBC 2.8 L (4.5-11.0) K/uL RBC 1.90 L (4.30-5.90) M/uL Hgb 6.9 L* (12.0-15.0) g/dL Hct 21.1 L (40.0-54.0) % MCV 111 H (80-98) fL MCH 36 H (27-31) pg MCHC 33 (32-36) % Plt Count 53 L (150-400) K/uL Neut % (Auto) 70 H (36-66) % Lymph % (Auto) 14 L (24-44) % [place] % (Auto) 14 H (2-6) % Eos % (Auto) 1 L (2-4) % Baso % (Auto) 1 (0-1) % PT (9.5-12.0) sec INR (0.80-1.20) Sodium (140-148) mmol/L Potassium (3.6-5.2) mmol/L Chloride (100-108) mmol/L Carbon Dioxide (21-32) mmol/L Anion Gap (5.0-14.0) mmol/L BUN (7-18) mg/dL Creatinine (0.8-1.3) mg/dL Est Cr Clr Drug Dosing mL/min Estimated GFR (MDRD) (>60) Glucose (74-106) mg/dL Calcium (8.5-10.1) mg/dL Magnesium (1.8-2.4) mg/dL Total Bilirubin (0.2-1.0) mg/dL AST (15-37) U/L ALT (12-78) U/L Alkaline Phosphatase (46-116) U/L Ammonia (11-32) mmol/L Troponin I (0.000-0.056) ng/mL Total Protein (6.4-8.2) g/dL Albumin (3.4-5.0) g/dL Globulin (2.3-3.5) g/dL Albumin/Globulin Ratio (1.2-2.2) Urine Color Other A (YELLOW) Urine Appearance Clear (CLEAR) Urine pH 5.5 (5.0-8.0) Ur Specific [place] 1.015 (1.008-1.030) Urine Protein Trace H (NEGATIVE) mg/dL Urine Glucose (UA) Negative (NEGATIVE) mg/dL Urine Ketones Negative (NEGATIVE) mg/dL Urine Occult Blood Negative (NEGATIVE) Urine Nitrite Negative (NEGATIVE) Urine Bilirubin Small H (NEGATIVE) Urine Urobilinogen 2.0 H (0.2-1.0) EU/dL Ur Leukocyte Esterase Negative (NEGATIVE) Urine RBC Not seen (0-5) Urine WBC Not seen (0-5) Ur Epithelial Cells Not seen Amorphous Sediment Not seen Urine Bacteria Not seen Urine Mucus Moderate Urine Other Influenza Type A RNA (NEGATIVE) RSV RNA (INAAT) (NEGATIVE) Influenza Type B RNA (NEGATIVE) SARS-CoV-2 RNA (DIONNA) (NEGATIVE) Blood Type O POSITIVE Gel Antibody Screen Negative Crossmatch See Detail 02/13/21 02/13/21 Range/Units 04:53 04:53 WBC (4.5-11.0) K/uL RBC (4.30-5.90) M/uL Hgb (12.0-15.0) g/dL Hct (40.0-54.0) % MCV (80-98) fL MCH (27-31) pg MCHC (32-36) % Plt Count (150-400) K/uL Neut % (Auto) (36-66) % Lymph % (Auto) (24-44) % [place] % (Auto) (2-6) % Eos % (Auto) (2-4) % Baso % (Auto) (0-1) % PT 12.9 H (9.5-12.0) sec INR 1.19 (0.80-1.20) Sodium 139 L (140-148) mmol/L Potassium 3.5 L (3.6-5.2) mmol/L Chloride 98 L (100-108) mmol/L Carbon Dioxide 30 (21-32) mmol/L Anion Gap 14.5 H (5.0-14.0) mmol/L BUN 18 (7-18) mg/dL Creatinine 1.4 H (0.8-1.3) mg/dL Est Cr Clr Drug Dosing 49.18 mL/min Estimated GFR (MDRD) 51 L (>60) Glucose 105 (74-106) mg/dL Calcium 8.1 L (8.5-10.1) mg/dL Magnesium 1.5 L (1.8-2.4) mg/dL Total Bilirubin 2.1 H (0.2-1.0) mg/dL AST 185 H (15-37) U/L ALT 73 (12-78) U/L Alkaline Phosphatase 143 H (46-116) U/L Ammonia (11-32) mmol/L Troponin I (0.000-0.056) ng/mL Total Protein 5.3 L (6.4-8.2) g/dL Albumin 2.5 L (3.4-5.0) g/dL Globulin 2.8 (2.3-3.5) g/dL Albumin/Globulin Ratio 0.9 L (1.2-2.2) Urine Color (YELLOW) Urine Appearance (CLEAR) Urine pH (5.0-8.0) Ur Specific [place] (1.008-1.030) Urine Protein (NEGATIVE) mg/dL Urine Glucose (UA) (NEGATIVE) mg/dL Urine Ketones (NEGATIVE) mg/dL Urine Occult Blood (NEGATIVE) Urine Nitrite (NEGATIVE) Urine Bilirubin (NEGATIVE) Urine Urobilinogen (0.2-1.0) EU/dL Ur Leukocyte Esterase (NEGATIVE) Urine RBC (0-5) Urine WBC (0-5) Ur Epithelial Cells Amorphous Sediment Urine Bacteria Urine Mucus Urine Other Influenza Type A RNA (NEGATIVE) RSV RNA (INAAT) (NEGATIVE) Influenza Type B RNA (NEGATIVE) SARS-CoV-2 RNA (DIONNA) (NEGATIVE) Blood Type Gel Antibody Screen Crossmatch Med Orders - Current: Current Medications Albuterol (Albuterol 0.083% 2.5 Mg/3 Ml Neb Soln) 2.5 mg NEB Q4H PRN PRN Reason: Shortness Of Breath/wheezing Carvedilol (Carvedilol 12.5 Mg Tab) 12.5 mg PO BID [facility] Last Admin: 02/13/21 08:22 Dose: 12.5 mg Documented by: Cyanocobalamin (Cyanocobalamin (Vitamin B12) 1,000 Mcg Tab) 2,500 mcg PO DAILY [facility] Last Admin: 02/13/21 08:19 Dose: 2,500 mcg Documented by: Ferrous Sulfate (Ferrous Sulfate 325 Mg Tab) 325 mg PO BID [facility] Last Admin: 02/13/21 08:24 Dose: 325 mg Documented by: Folic Acid (Folic Acid 1 Mg Tab) 0.5 mg PO DAILY [facility] Last Admin: 02/13/21 08:21 Dose: 0.5 mg Documented by: Gabapentin (Gabapentin 400 Mg Cap) 400 mg PO Q8H [facility] Stop: 02/16/21 06:01 Last Admin: 02/13/21 06:04 Dose: 400 mg Documented by: Gabapentin (Gabapentin 100 Mg Cap) 200 mg PO Q8H [facility] Stop: 02/20/21 14:01 Magnesium Sulfate (Magnesium Sulfate In Water 2 Gm/50 Ml) 2 gm in 50 mls @ 25 mls/hr IV Q6H [facility] Stop: 02/13/21 16:59 Last Admin: 02/13/21 08:28 Dose: 25 mls/hr Documented by: Lorazepam (Lorazepam 1 Mg Tab) 0 mg PO ASDIRECTED PRN; Protocol PRN Reason: ALCOHOL WITHDRAWAL Lorazepam (Lorazepam 2 Mg/Ml Sdv) 0 mg IV ASDIRECTED PRN; Protocol PRN Reason: ALCOHOL WITHDRAWAL Losartan Potassium (Losartan 25 Mg Tab) 25 mg PO DAILY [facility] Last Admin: 02/13/21 08:23 Dose: 25 mg Documented by: Magnesium Oxide (Magnesium Oxide 400 Mg Tab) 400 mg PO BID [facility] Last Admin: 02/13/21 08:28 Dose: 400 mg Documented by: Ondansetron HCl (Ondansetron 4 Mg/2 Ml Sdv) 4 mg IV Q4H PRN PRN Reason: Nausea/Vomiting Pantoprazole Sodium ([facility] 40 Mg Tab.Cr) [facility] Last Admin: 02/13/21 08:10 Dose: 40 mg Documented by: Polyethylene Glycol (Polyethylene Glycol 3350 Powder 17 Gm Packet) 17 gm PO DAILY PRN PRN Reason: Constipation Sodium Chloride (Sodium Chloride 0.9% 10 Ml Syringe) 10 ml FLUSH ASDIRECTED PRN PRN Reason: Keep Vein Open Thiamine HCl (Thiamine 100 Mg Tab) 100 mg PO DAILY [facility] Last Admin: 02/13/21 08:23 Dose: 100 mg Documented by: Discontinued Medications Sodium Chloride (Normal Saline) 1,000 mls @ 125 mls/hr IV ASDIRECTED [facility] Last Admin: 02/13/21 08:55 Dose: 125 mls/hr Documented by: Multivitamins/Minerals 10 ml/Thiamine HCl 100 mg/ Folic Acid 1 mg/ Magnesium Sulfate 2 gm/ Sodium Chloride 1,015.2 mls @ 100 mls/hr IV ONETIME ONE Stop: 02/13/21 00:39 Last Admin: 02/12/21 15:00 Dose: 100 mls/hr Documented by: Potassium Chloride (Potassium Chloride 20 Meq Tab.Er) 40 meq PO ONETIME ONE Stop: 02/13/21 08:16 Last Admin: 02/13/21 08:41 Dose: 40 meq Documented by: Sodium Chloride (Sodium Chloride 0.9% 10 Ml Syringe) 10 ml FLUSH ASDIRECTED PRN PRN Reason: Keep Vein Open Last Admin: 02/12/21 12:12 Dose: 10 ml Documented by: - Exam Quality Assessment: DVT Prophylaxis General: Alert, Oriented, Cooperative, Mild Distress Lungs: Clear to Auscultation, Normal Respiratory Effort, Decreased Breath Sounds Cardiovascular: Regular Rate, Regular Rhythm, Murmurs GI/Abdominal Exam: Soft, Non-Tender, No Organomegaly, No Distention Extremities: Non-Tender, No Pedal Edema - Patient Data Lab Results Last 24 hrs: Laboratory Results - last 24 hr 02/12/21 02/12/21 02/12/21 Range/Units 11:58 11:58 11:58 WBC 3.3 L (4.5-11.0) K/uL RBC 2.26 L (4.30-5.90) M/uL Hgb 8.6 L (12.0-15.0) g/dL Hct 24.8 L (40.0-54.0) % MCV 110 H (80-98) fL MCH 38 H (27-31) pg MCHC 35 (32-36) % Plt Count 71 L (150-400) K/uL Neut % (Auto) (36-66) % Lymph % (Auto) (24-44) % [place] % (Auto) (2-6) % Eos % (Auto) (2-4) % Baso % (Auto) (0-1) % PT (9.5-12.0) sec INR (0.80-1.20) Sodium 141 (140-148) mmol/L Potassium 3.6 (3.6-5.2) mmol/L Chloride 97 L (100-108) mmol/L Carbon Dioxide 23 (21-32) mmol/L Anion Gap 24.6 H (5.0-14.0) mmol/L BUN 16 D (7-18) mg/dL Creatinine 2.0 H (0.8-1.3) mg/dL Est Cr Clr Drug Dosing 34.43 mL/min Estimated GFR (MDRD) 34 L (>60) Glucose 93 (74-106) mg/dL Calcium 8.9 (8.5-10.1) mg/dL Magnesium (1.8-2.4) mg/dL Total Bilirubin 2.0 H (0.2-1.0) mg/dL AST 256 H D (15-37) U/L ALT 99 H (12-78) U/L Alkaline Phosphatase 159 H (46-116) U/L Ammonia (11-32) mmol/L Troponin I 0.027 (0.000-0.056) ng/mL Total Protein 6.4 (6.4-8.2) g/dL Albumin 3.0 L (3.4-5.0) g/dL Globulin 3.4 (2.3-3.5) g/dL Albumin/Globulin Ratio 0.9 L (1.2-2.2) Urine Color (YELLOW) Urine Appearance (CLEAR) Urine pH (5.0-8.0) Ur Specific [place] (1.008-1.030) Urine Protein (NEGATIVE) mg/dL Urine Glucose (UA) (NEGATIVE) mg/dL Urine Ketones (NEGATIVE) mg/dL Urine Occult Blood (NEGATIVE) Urine Nitrite (NEGATIVE) Urine Bilirubin (NEGATIVE) Urine Urobilinogen (0.2-1.0) EU/dL Ur Leukocyte Esterase (NEGATIVE) Urine RBC (0-5) Urine WBC (0-5) Ur Epithelial Cells Amorphous Sediment Urine Bacteria Urine Mucus Urine Other Influenza Type A RNA (NEGATIVE) RSV RNA (INAAT) (NEGATIVE) Influenza Type B RNA (NEGATIVE) SARS-CoV-2 RNA (DIONNA) (NEGATIVE) Blood Type Gel Antibody Screen Crossmatch 02/12/21 02/12/21 02/12/21 Range/Units 11:58 13:21 14:12 WBC (4.5-11.0) K/uL RBC (4.30-5.90) M/uL Hgb (12.0-15.0) g/dL Hct (40.0-54.0) % MCV (80-98) fL MCH (27-31) pg MCHC (32-36) % Plt Count (150-400) K/uL Neut % (Auto) (36-66) % Lymph % (Auto) (24-44) % [place] % (Auto) (2-6) % Eos % (Auto) (2-4) % Baso % (Auto) (0-1) % PT 12.9 H (9.5-12.0) sec INR 1.19 (0.80-1.20) Sodium (140-148) mmol/L Potassium (3.6-5.2) mmol/L Chloride (100-108) mmol/L Carbon Dioxide (21-32) mmol/L Anion Gap (5.0-14.0) mmol/L BUN (7-18) mg/dL Creatinine (0.8-1.3) mg/dL Est Cr Clr Drug Dosing mL/min Estimated GFR (MDRD) (>60) Glucose (74-106) mg/dL Calcium (8.5-10.1) mg/dL Magnesium (1.8-2.4) mg/dL Total Bilirubin (0.2-1.0) mg/dL AST (15-37) U/L ALT (12-78) U/L Alkaline Phosphatase (46-116) U/L Ammonia 40 H (11-32) mmol/L Troponin I (0.000-0.056) ng/mL Total Protein (6.4-8.2) g/dL Albumin (3.4-5.0) g/dL Globulin (2.3-3.5) g/dL Albumin/Globulin Ratio (1.2-2.2) Urine Color (YELLOW) Urine Appearance (CLEAR) Urine pH (5.0-8.0) Ur Specific [place] (1.008-1.030) Urine Protein (NEGATIVE) mg/dL Urine Glucose (UA) (NEGATIVE) mg/dL Urine Ketones (NEGATIVE) mg/dL Urine Occult Blood (NEGATIVE) Urine Nitrite (NEGATIVE) Urine Bilirubin (NEGATIVE) Urine Urobilinogen (0.2-1.0) EU/dL Ur Leukocyte Esterase (NEGATIVE) Urine RBC (0-5) Urine WBC (0-5) Ur Epithelial Cells Amorphous Sediment Urine Bacteria Urine Mucus Urine Other Influenza Type A RNA Negative (NEGATIVE) RSV RNA (INAAT) Negative (NEGATIVE) Influenza Type B RNA Negative (NEGATIVE) SARS-CoV-2 RNA (DIONNA) Negative (NEGATIVE) Blood Type Gel Antibody Screen Crossmatch 02/13/21 02/13/21 02/13/21 Range/Units 04:44 04:46 04:53 WBC 2.8 L (4.5-11.0) K/uL RBC 1.90 L (4.30-5.90) M/uL Hgb 6.9 L* (12.0-15.0) g/dL Hct 21.1 L (40.0-54.0) % MCV 111 H (80-98) fL MCH 36 H (27-31) pg MCHC 33 (32-36) % Plt Count 53 L (150-400) K/uL Neut % (Auto) 70 H (36-66) % Lymph % (Auto) 14 L (24-44) % [place] % (Auto) 14 H (2-6) % Eos % (Auto) 1 L (2-4) % Baso % (Auto) 1 (0-1) % PT (9.5-12.0) sec INR (0.80-1.20) Sodium (140-148) mmol/L Potassium (3.6-5.2) mmol/L Chloride (100-108) mmol/L Carbon Dioxide (21-32) mmol/L Anion Gap (5.0-14.0) mmol/L BUN (7-18) mg/dL Creatinine (0.8-1.3) mg/dL Est Cr Clr Drug Dosing mL/min Estimated GFR (MDRD) (>60) Glucose (74-106) mg/dL Calcium (8.5-10.1) mg/dL Magnesium (1.8-2.4) mg/dL Total Bilirubin (0.2-1.0) mg/dL AST (15-37) U/L ALT (12-78) U/L Alkaline Phosphatase (46-116) U/L Ammonia (11-32) mmol/L Troponin I (0.000-0.056) ng/mL Total Protein (6.4-8.2) g/dL Albumin (3.4-5.0) g/dL Globulin (2.3-3.5) g/dL Albumin/Globulin Ratio (1.2-2.2) Urine Color Other A (YELLOW) Urine Appearance Clear (CLEAR) Urine pH 5.5 (5.0-8.0) Ur Specific [place] 1.015 (1.008-1.030) Urine Protein Trace H (NEGATIVE) mg/dL Urine Glucose (UA) Negative (NEGATIVE) mg/dL Urine Ketones Negative (NEGATIVE) mg/dL Urine Occult Blood Negative (NEGATIVE) Urine Nitrite Negative (NEGATIVE) Urine Bilirubin Small H (NEGATIVE) Urine Urobilinogen 2.0 H (0.2-1.0) EU/dL Ur Leukocyte Esterase Negative (NEGATIVE) Urine RBC Not seen (0-5) Urine WBC Not seen (0-5) Ur Epithelial Cells Not seen Amorphous Sediment Not seen Urine Bacteria Not seen Urine Mucus Moderate Urine Other Influenza Type A RNA (NEGATIVE) RSV RNA (INAAT) (NEGATIVE) Influenza Type B RNA (NEGATIVE) SARS-CoV-2 RNA (DIONNA) (NEGATIVE) Blood Type O POSITIVE Gel Antibody Screen Negative Crossmatch See Detail 02/13/21 02/13/21 Range/Units 04:53 04:53 WBC (4.5-11.0) K/uL RBC (4.30-5.90) M/uL Hgb (12.0-15.0) g/dL Hct (40.0-54.0) % MCV (80-98) fL MCH (27-31) pg MCHC (32-36) % Plt Count (150-400) K/uL Neut % (Auto) (36-66) % Lymph % (Auto) (24-44) % [place] % (Auto) (2-6) % Eos % (Auto) (2-4) % Baso % (Auto) (0-1) % PT 12.9 H (9.5-12.0) sec INR 1.19 (0.80-1.20) Sodium 139 L (140-148) mmol/L Potassium 3.5 L (3.6-5.2) mmol/L Chloride 98 L (100-108) mmol/L Carbon Dioxide 30 (21-32) mmol/L Anion Gap 14.5 H (5.0-14.0) mmol/L BUN 18 (7-18) mg/dL Creatinine 1.4 H (0.8-1.3) mg/dL Est Cr Clr Drug Dosing 49.18 mL/min Estimated GFR (MDRD) 51 L (>60) Glucose 105 (74-106) mg/dL Calcium 8.1 L (8.5-10.1) mg/dL Magnesium 1.5 L (1.8-2.4) mg/dL Total Bilirubin 2.1 H (0.2-1.0) mg/dL AST 185 H (15-37) U/L ALT 73 (12-78) U/L Alkaline Phosphatase 143 H (46-116) U/L Ammonia (11-32) mmol/L Troponin I (0.000-0.056) ng/mL Total Protein 5.3 L (6.4-8.2) g/dL Albumin 2.5 L (3.4-5.0) g/dL Globulin 2.8 (2.3-3.5) g/dL Albumin/Globulin Ratio 0.9 L (1.2-2.2) Urine Color (YELLOW) Urine Appearance (CLEAR) Urine pH (5.0-8.0) Ur Specific [place] (1.008-1.030) Urine Protein (NEGATIVE) mg/dL Urine Glucose (UA) (NEGATIVE) mg/dL Urine Ketones (NEGATIVE) mg/dL Urine Occult Blood (NEGATIVE) Urine Nitrite (NEGATIVE) Urine Bilirubin (NEGATIVE) Urine Urobilinogen (0.2-1.0) EU/dL Ur Leukocyte Esterase (NEGATIVE) Urine RBC (0-5) Urine WBC (0-5) Ur Epithelial Cells Amorphous Sediment Urine Bacteria Urine Mucus Urine Other Influenza Type A RNA (NEGATIVE) RSV RNA (INAAT) (NEGATIVE) Influenza Type B RNA (NEGATIVE) SARS-CoV-2 RNA (DIONNA) (NEGATIVE) Blood Type Gel Antibody Screen Crossmatch Result Diagrams: 02/13/21 04:53 02/13/21 04:53 Sepsis Event Note - Evaluation Sepsis Screening Result: No Definite Risk - Focused Exam Vital Signs: Vital Signs Temp Temp Pulse Pulse Resp BP BP 02/13/21 10:00 99.4 F 81 14 106/64 02/13/21 09:45 98.5 F 87 14 101/66 02/13/21 08:23 116/71 02/13/21 08:22 83 116/71 02/13/21 08:00 99.1 F 83 14 117/67 02/13/21 06:00 98.8 F 12 117/73 02/13/21 04:00 13 125/78 02/13/21 02:00 99.9 F 14 121/77 02/13/21 00:00 12 103/65 Pulse Ox 02/13/21 10:00 02/13/21 09:45 02/13/21 08:23 02/13/21 08:22 02/13/21 08:00 100 02/13/21 06:00 97 02/13/21 04:00 94 L 02/13/21 02:00 94 L 02/13/21 00:00 91 L - Problem List Review Problem List Initiated/Reviewed/Updated: Yes - My Orders Last 24 Hours: My Active Orders 02/12/21 Lunch 2 Gram Sodium Diet [DIET] 02/12/21 12:36 Resuscitation Status Routine 02/12/21 13:59 Albuterol [Proventil Neb Soln] 2.5 mg NEB Q4H PRN LORazepam [Ativan] See Protocol IV ASDIRECTED PRN LORazepam [Ativan] See Protocol PO ASDIRECTED PRN Ondansetron [Zofran] 4 mg IV Q4H PRN Sodium Chloride 0.9% [Saline Flush] 10 ml FLUSH ASDIRECTED PRN polyethylene glycoL 3350 [MiraLAX] 17 gm PO DAILY PRN 02/12/21 13:59 Patient Status [ADT] Routine Ambulate [RC] QID CIWAA Assessment [RC] Q4H Cardiac Monitoring [RC] Q6H Height and Weight [RC] DAILY Intake and Output [RC] QSHIFT Notify Provider Vital Signs [RC] ASDIRECTED Notify Provider [RC] PRN Oxygen Therapy [RC] PRN Peripheral IV Care [RC] Q12H Pulse Oximetry [RC] CONTINUOUS RT Aerosol Therapy [RC] ASDIRECTED Up With Assistance [RC] ASDIRECTED Up to Chair [RC] QID VTE/DVT Education [RC] Per Unit Routine Vital Signs [RC] Q2H PT Evaluation and Treatment [CONS] Routine Peripheral IV Insertion Adult [OM.PC] Routine Sequential Compression Device [OM.PC] Per Unit Routine VTE Pharmacological Contraindications [AST] Per Unit Routine 02/12/21 14:00 Gabapentin [Neurontin] 400 mg PO Q8H 02/12/21 16:30 Pantoprazole [ProTONIX] 40 mg PO BIDAC 02/12/21 21:00 Ferrous Sulfate 325 mg PO BID carvediloL [Coreg] 12.5 mg PO BID 02/13/21 04:46 PATIENT RETYPE [BBK] Routine RED BLOOD CELLS LP [BBK] Routine TYPE AND SCREEN [BBK] Routine 02/13/21 07:00 Transfuse Red Blood Cells [COMM] Routine 02/13/21 08:00 Echo Comp wo Cont [US] Urgent 02/13/21 09:00 Cyanocobalamin (Vitamin B12) [Vitamin B12] 2,500 mcg PO DAILY Folic Acid 0.5 mg PO DAILY Losartan [Cozaar] 25 mg PO DAILY Magnesium Oxide 400 mg PO BID Magnesium Sulfate/Water [Magnesium Sulfate in Water 2 GM/50 ML] 2 gm in 50 ml IV Q6H Thiamine [Vitamin B-1] 100 mg PO DAILY 02/13/21 10:38 Convert IV to Saline Lock [OM.PC] Routine 02/13/21 10:40 FERRITIN [CHEM] Stat FOLATE (FOLIC ACID), SERUM Stat HEMATOPATH CONSULTATION, SMEAR Routine IRON/TIBC [CHEM] Stat LACTATE DEHYDROGENASE,LDH [CHEM] Stat VITAMIN B1 (THIAMINE), BLOOD Stat VITAMIN B12 [CHEM] Stat 02/13/21 17:00 HGB [HEMOGLOBIN] [HEME] Stat 02/14/21 05:00 CBC WITH AUTO DIFF [HEME] Timed COMPREHENSIVE METABOLIC PN,CMP [CHEM] Timed MAGNESIUM [CHEM] Timed 02/16/21 14:00 Gabapentin [Neurontin] 200 mg PO Q8H - Plan Plan:: ASSESSMENT AND PLAN GENERALIZED WEAKNESS-progressive over the past few weeks, no focal neurologic findings. No evidence of underlying infection, significant metabolic abnormality, or medication effect. Appetite has been poor and is likely a contributing factor. History of longstanding alcohol use and abuse as well as underlying congestive heart failure and anemia. -Saline lock IV -Physical therapy consult PROBABLE ALCOHOL WITHDRAWAL-less tremulous today, denies hallucinations -Banana bag -Alcohol withdrawal protocol -Gabapentin 400 mg p.o. 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 CT scan of the abdomen and pelvis showed no evidence of obstruction -Reassess labs in a.m. CHRONIC KIDNEY DISEASE STAGE III-renal function has improved with hydration -Closely monitor urine output and renal function CONGESTIVE HEART FAILURE-status post defibrillator placement. Echocardiogram today shows severely decreased left ventricular systolic function, grade 2 diastolic dysfunction, and severe mitral regurgitation. -Continue outpatient medical therapy PANCYTOPENIA-hemoglobin has dropped significantly from admission likely secondary to IV fluids. There has been no evidence of active bleeding. He does have a significant elevation in MCV, possibly related to alcohol use versus underlying myelodysplastic syndrome. -Infuse 1 unit of red blood cells -Serial hemoglobin levels -Labs pending; B12, thiamine, folic acid, ferritin, iron levels, LDH, and peripheral smear MAINTENANCE ISSUES -DVT prophylaxis; SCUDs, not a candidate for anticoagulation because of thrombocytopenia -GI prophylaxis; continue outpatient PPI therapy -Paez catheter; not indicated -Nutrition; 2 g sodium diet -Nicotine dependence; not required CODE STATUS-FULL CODE ADMISSION STATUS-patient will be admitted to inpatient status, expect at least a 2 night hospital stay for evaluation and management of problems as outlined above. At the time of this admission I do not reasonably expected evaluation and management of this problem will require more than a 96 hour hospital stay. DISPOSITION-anticipate discharge to home after the hospital stay. PRIMARY CARE PROVIDER-Dr. Rose
[2021-02-13] MEDS: Furosemide 40 MG Tab PO SCH (11:24)
[2021-02-14] MEDS: Gabapentin 400 MG Cap PO SCH ×3 (05:35→21:37)
[2021-02-14] MEDS: Pantoprazole 40 MG Tab.CR PO SCH ×2 (08:25→15:35)
[2021-02-14] MEDS: Folic Acid 1 MG Tab PO SCH (08:26)
[2021-02-14] MEDS: Magnesium Oxide 400 MG Tab PO SCH ×2 (08:26→21:37)
[2021-02-14] MEDS: Cyanocobalamin (Vitamin B12) 1,000 MCG Tab PO SCH (08:27)
[2021-02-14] MEDS: Furosemide 40 MG Tab PO SCH (08:29)
[2021-02-14] MEDS: Thiamine 100 MG Tab PO SCH (08:31)
[2021-02-14] MEDS: Carvedilol 12.5 MG Tab PO SCH ×2 (08:31→21:31)
[2021-02-14] MEDS: Ferrous Sulfate 325 MG Tab PO SCH ×2 (08:32→21:31)
[2021-02-14] MEDS: Losartan 25 MG Tab PO SCH (08:32)
[2021-02-14] MEDS: LORazepam 1 MG Tab PO PRN ×5 (13:33→22:17)
--- NOTE | 2021-02-14 13:43 | PCM.PN ---
- General Info Date of Service: 02/14/21 Subjective Update: Mr. Austin continues to experience improvement with modest increase in energy level and appetite. Hemoglobin has remained stable following transfusion. He reports less shortness of breath and weakness. Functional Status: Reports: Tolerating Diet, Urinating - Review of Systems General: Reports: Weakness, Fatigue. Denies: Fever, Chills Pulmonary: Reports: Shortness of Breath. Denies: Pleuritic Chest Pain, Cough, Sputum, Hemoptysis, Wheezing Cardiovascular: Reports: Dyspnea on Exertion. Denies: Chest Pain, Palpitations, Orthopnea, PND, Edema, Lightheadedness Gastrointestinal: Reports: No Symptoms - Patient Data Vitals - Most Recent: Last Vital Signs Temp 98 F 02/14/21 13:38 Pulse 81 02/14/21 13:38 Resp 17 02/14/21 13:38 BP 117/61 02/14/21 13:38 Pulse Ox 95 02/14/21 13:38 Weight - Most Recent: 167 lb 3.2 oz I&O - Last 24 Hours: Intake & Output 02/13/21 02/14/21 02/14/21 22:59 06:59 14:59 Intake Total 500 240 Output Total 500 100 150 Balance -500 400 90 Lab Results Last 24 Hours: Laboratory Results - last 24 hr 02/13/21 02/14/21 02/14/21 Range/Units 17:48 05:13 05:13 WBC 3.3 L (4.5-11.0) K/uL RBC 2.42 L (4.30-5.90) M/uL Hgb 8.6 L 8.5 L (12.0-15.0) g/dL Hct 25.6 L (40.0-54.0) % MCV 106 H (80-98) fL MCH 35 H (27-31) pg MCHC 33 (32-36) % Plt Count 60 L (150-400) K/uL Neut % (Auto) 68 H (36-66) % Lymph % (Auto) 16 L (24-44) % Nicholas % (Auto) 13 H (2-6) % Eos % (Auto) 2 (2-4) % Baso % (Auto) 1 (0-1) % Sodium 135 L (140-148) mmol/L Potassium 4.0 (3.6-5.2) mmol/L Chloride 96 L (100-108) mmol/L Carbon Dioxide 29 (21-32) mmol/L Anion Gap 14.0 (5.0-14.0) mmol/L BUN 15 (7-18) mg/dL Creatinine 1.0 (0.8-1.3) mg/dL Est Cr Clr Drug Dosing 68.68 mL/min Estimated GFR (MDRD) > 60 (>60) Glucose 101 (74-106) mg/dL Calcium 8.5 (8.5-10.1) mg/dL Magnesium 1.6 L (1.8-2.4) mg/dL Total Bilirubin 2.2 H (0.2-1.0) mg/dL AST 150 H (15-37) U/L ALT 68 (12-78) U/L Alkaline Phosphatase 144 H (46-116) U/L Total Protein 5.6 L (6.4-8.2) g/dL Albumin 2.6 L (3.4-5.0) g/dL Globulin 3.0 (2.3-3.5) g/dL Albumin/Globulin Ratio 0.9 L (1.2-2.2) Med Orders - Current: Current Medications Albuterol (Albuterol 0.083% 2.5 Mg/3 Ml Neb Soln) 2.5 mg NEB Q4H PRN PRN Reason: Shortness Of Breath/wheezing Carvedilol (Carvedilol 12.5 Mg Tab) 12.5 mg PO BID [facility] Last Admin: 02/14/21 08:31 Dose: 12.5 mg Documented by: Cyanocobalamin (Cyanocobalamin (Vitamin B12) 1,000 Mcg Tab) 2,500 mcg PO DAILY [facility] Last Admin: 02/14/21 08:27 Dose: 2,500 mcg Documented by: Ferrous Sulfate (Ferrous Sulfate 325 Mg Tab) 325 mg PO BID [facility] Last Admin: 02/14/21 08:32 Dose: 325 mg Documented by: Folic Acid (Folic Acid 1 Mg Tab) 0.5 mg PO DAILY [facility] Last Admin: 02/14/21 08:26 Dose: 0.5 mg Documented by: Furosemide (Furosemide 40 Mg Tab) 40 mg PO DAILY [facility] Last Admin: 02/14/21 08:29 Dose: 40 mg Documented by: Gabapentin (Gabapentin 400 Mg Cap) 400 mg PO Q8H [facility] Stop: 02/16/21 06:01 Last Admin: 02/14/21 13:30 Dose: 400 mg Documented by: Gabapentin (Gabapentin 100 Mg Cap) 200 mg PO Q8H [facility] Stop: 02/20/21 14:01 Magnesium Sulfate (Magnesium Sulfate In Water 2 Gm/50 Ml) 2 gm in 50 mls @ 12.5 mls/hr IV Q6H [facility] Stop: 02/14/21 23:44 Lorazepam (Lorazepam 1 Mg Tab) 0 mg PO ASDIRECTED PRN; Protocol PRN Reason: ALCOHOL WITHDRAWAL Last Admin: 02/14/21 13:33 Dose: 2 mg Documented by: Lorazepam (Lorazepam 2 Mg/Ml Sdv) 0 mg IV ASDIRECTED PRN; Protocol PRN Reason: ALCOHOL WITHDRAWAL Losartan Potassium (Losartan 25 Mg Tab) 25 mg PO DAILY [facility] Last Admin: 02/14/21 08:32 Dose: 25 mg Documented by: Magnesium Oxide (Magnesium Oxide 400 Mg Tab) 400 mg PO BID [facility] Last Admin: 02/14/21 08:26 Dose: 400 mg Documented by: Ondansetron HCl (Ondansetron 4 Mg/2 Ml Sdv) 4 mg IV Q4H PRN PRN Reason: Nausea/Vomiting Pantoprazole Sodium (Pantoprazole 40 Mg Tab.Cr) 40 mg PO BIDAC [facility] Last Admin: 02/14/21 08:25 Dose: 40 mg Documented by: Polyethylene Glycol (Polyethylene Glycol 3350 Powder 17 Gm Packet) 17 gm PO DAILY PRN PRN Reason: Constipation Sodium Chloride (Sodium Chloride 0.9% 10 Ml Syringe) 10 ml FLUSH ASDIRECTED PRN PRN Reason: Keep Vein Open Thiamine HCl (Thiamine 100 Mg Tab) 100 mg PO DAILY [facility] Last Admin: 02/14/21 08:31 Dose: 100 mg Documented by: Discontinued Medications Sodium Chloride (Normal Saline) 1,000 mls @ 125 mls/hr IV ASDIRECTED [facility] Last Admin: 02/13/21 08:55 Dose: 125 mls/hr Documented by: Multivitamins/Minerals 10 ml/Thiamine HCl 100 mg/ Folic Acid 1 mg/ Magnesium Sulfate 2 gm/ Sodium Chloride 1,015.2 mls @ 100 mls/hr IV ONETIME ONE Stop: 02/13/21 00:39 Last Admin: 02/12/21 15:00 Dose: 100 mls/hr Documented by: Magnesium Sulfate (Magnesium Sulfate In Water 2 Gm/50 Ml) 2 gm in 50 mls @ 25 mls/hr IV Q6H [facility] Stop: 02/13/21 16:59 Last Admin: 02/13/21 14:22 Dose: 25 mls/hr Documented by: Potassium Chloride (Potassium Chloride 20 Meq Tab.Er) 40 meq PO ONETIME ONE Stop: 02/13/21 08:16 Last Admin: 02/13/21 08:41 Dose: 40 meq Documented by: Sodium Chloride (Sodium Chloride 0.9% 10 Ml Syringe) 10 ml FLUSH ASDIRECTED PRN PRN Reason: Keep Vein Open Last Admin: 02/12/21 12:12 Dose: 10 ml Documented by: - Exam Quality Assessment: DVT Prophylaxis General: Alert, Oriented, Cooperative, Mild Distress Lungs: Clear to Auscultation, Normal Respiratory Effort Cardiovascular: Regular Rate, Regular Rhythm, No Murmurs GI/Abdominal Exam: Soft, Non-Tender, No Organomegaly, No Distention Extremities: Non-Tender, No Pedal Edema - Patient Data Lab Results Last 24 hrs: Laboratory Results - last 24 hr 02/13/21 02/14/21 02/14/21 Range/Units 17:48 05:13 05:13 WBC 3.3 L (4.5-11.0) K/uL RBC 2.42 L (4.30-5.90) M/uL Hgb 8.6 L 8.5 L (12.0-15.0) g/dL Hct 25.6 L (40.0-54.0) % MCV 106 H (80-98) fL MCH 35 H (27-31) pg MCHC 33 (32-36) % Plt Count 60 L (150-400) K/uL Neut % (Auto) 68 H (36-66) % Lymph % (Auto) 16 L (24-44) % Nicholas % (Auto) 13 H (2-6) % Eos % (Auto) 2 (2-4) % Baso % (Auto) 1 (0-1) % Sodium 135 L (140-148) mmol/L Potassium 4.0 (3.6-5.2) mmol/L Chloride 96 L (100-108) mmol/L Carbon Dioxide 29 (21-32) mmol/L Anion Gap 14.0 (5.0-14.0) mmol/L BUN 15 (7-18) mg/dL Creatinine 1.0 (0.8-1.3) mg/dL Est Cr Clr Drug Dosing 68.68 mL/min Estimated GFR (MDRD) > 60 (>60) Glucose 101 (74-106) mg/dL Calcium 8.5 (8.5-10.1) mg/dL Magnesium 1.6 L (1.8-2.4) mg/dL Total Bilirubin 2.2 H (0.2-1.0) mg/dL AST 150 H (15-37) U/L ALT 68 (12-78) U/L Alkaline Phosphatase 144 H (46-116) U/L Total Protein 5.6 L (6.4-8.2) g/dL Albumin 2.6 L (3.4-5.0) g/dL Globulin 3.0 (2.3-3.5) g/dL Albumin/Globulin Ratio 0.9 L (1.2-2.2) Result Diagrams: 02/14/21 05:13 02/14/21 05:13 Sepsis Event Note - Evaluation Sepsis Screening Result: No Definite Risk - Focused Exam Vital Signs: Vital Signs Temp Pulse Pulse Resp BP BP Pulse Ox 02/14/21 13:38 98 F 81 17 117/61 95 02/14/21 12:00 15 L 16 115/68 98 02/14/21 10:00 81 14 115/68 97 02/14/21 08:32 111/69 02/14/21 08:31 82 111/69 02/14/21 08:00 98.2 F 82 14 111/60 96 02/14/21 06:00 80 10 L 93/45 L 95 02/14/21 04:00 81 11 L 119/71 02/14/21 02:00 97.6 F 83 13 109/70 93 L - Problem List Review Problem List Initiated/Reviewed/Updated: Yes - My Orders Last 24 Hours: My Active Orders 02/13/21 17:48 HEMATOPATH CONSULTATION, SMEAR Routine VITAMIN B1 (THIAMINE), BLOOD Stat 02/14/21 13:45 Magnesium Sulfate 2 GM in Water @ 12.5 MLS/HR (50ml) Magnesium Sulfate/Water [Magnesium Sulfate in Water 2 GM/50 ML] 2 gm in 50 ml IV Q6H 02/15/21 05:00 CBC WITH AUTO DIFF [HEME] Timed COMPREHENSIVE METABOLIC PN,CMP [CHEM] Timed MAGNESIUM [CHEM] Timed 02/16/21 14:00 Gabapentin [Neurontin] 200 mg PO Q8H - Plan Plan:: ASSESSMENT AND PLAN GENERALIZED WEAKNESS-progressive over the past few weeks, no focal neurologic findings. No evidence of underlying infection, significant metabolic abnormality, or medication effect. Appetite has been poor and is likely a con tributing factor. History of longstanding alcohol use and abuse as well as underlying congestive heart failure and anemia. -Saline lock IV -Physical therapy consult PROBABLE ALCOHOL WITHDRAWAL-less tremulous today, denies hallucinations -Alcohol withdrawal protocol -Gabapentin 400 mg p.o. 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 CT scan of the abdomen and pelvis showed no evidence of obstruction -Reassess labs in a.m. CHRONIC KIDNEY DISEASE STAGE III-renal function has improved with hydration -Closely monitor urine output and renal function CONGESTIVE HEART FAILURE-status post defibrillator placement. Echocardiogram shows severely decreased left ventricular systolic function, grade 2 diastolic dysfunction, and severe mitral regurgitation. -Continue outpatient medical therapy PANCYTOPENIA-hemoglobin stable following transfusion of 1 unit of red blood cells yesterday. There has been no evidence of active bleeding. He does have a significant elevation in MCV, possibly related to alcohol use versus underlying myelodysplastic syndrome. Labs unremarkable, peripheral smear pending -Reassess hemoglobin in a.m. MAINTENANCE ISSUES -DVT prophylaxis; SCUDs, not a candidate for anticoagulation because of thrombocytopenia -GI prophylaxis; continue outpatient PPI therapy -Paez catheter; not indicated -Nutrition; 2 g sodium diet -Nicotine dependence; not required CODE STATUS-FULL CODE ADMISSION STATUS-patient will be admitted to inpatient status, expect at least a 2 night hospital stay for evaluation and management of problems as outlined ab ove. At the time of this admission I do not reasonably expected evaluation and management of this problem will require more than a 96 hour hospital stay. DISPOSITION-anticipate discharge to home after the hospital stay. PRIMARY CARE PROVIDER-Dr. Rose
[2021-02-14] MEDS: Magnesium Sulfate/Water 2 GM/50 ML BAG IV SCH ×2 (14:05→19:27)
[2021-02-15] MEDS: LORazepam 2 MG/ML SDV IV PRN ×17 (00:25→23:18)
[2021-02-15] MEDS: Gabapentin 400 MG Cap PO SCH ×3 (05:36→21:39)
[2021-02-15] MEDS: Pantoprazole 40 MG Tab.CR PO SCH ×2 (07:40→16:23)
[2021-02-15] MEDS: Ferrous Sulfate 325 MG Tab PO SCH ×2 (08:13→20:34)
[2021-02-15] MEDS: Losartan 25 MG Tab PO SCH (08:13)
[2021-02-15] MEDS: Folic Acid 1 MG Tab PO SCH (08:13)
[2021-02-15] MEDS: Magnesium Oxide 400 MG Tab PO SCH ×2 (08:14→20:34)
[2021-02-15] MEDS: Thiamine 100 MG Tab PO SCH (08:14)
[2021-02-15] MEDS: Carvedilol 12.5 MG Tab PO SCH ×2 (08:14→20:33)
[2021-02-15] MEDS: Cyanocobalamin (Vitamin B12) 1,000 MCG Tab PO SCH (08:15)
[2021-02-15] MEDS ORDERED: Potassium Chloride 20 MEQ Tab.ER PO ONE (08:15)
[2021-02-15] MEDS: Furosemide 40 MG Tab PO SCH (08:18)
--- NOTE | 2021-02-15 11:19 | PCM.PN ---
- General Info Date of Service: 02/15/21 Subjective Update: Mr. Austin unfortunately developed symptoms and findings of alcohol withdrawal over the last 24 hours. He has become more tremulous and confused with mild agitation. Otherwise has been fairly stable with good vital signs and no significant temperature elevation. Functional Status: Reports: Tolerating Diet, Ambulating, Urinating - Review of Systems General: Reports: Weakness, Fatigue. Denies: Fever, Chills Pulmonary: Reports: No Symptoms Cardiovascular: Reports: No Symptoms Gastrointestinal: Reports: No Symptoms Genitourinary: Reports: No Symptoms - Patient Data Vitals - Most Recent: Last Vital Signs Temp 98.2 F 02/15/21 09:55 Pulse 100 02/15/21 09:55 Resp 15 02/15/21 09:55 BP 101/71 02/15/21 09:55 Pulse Ox 100 02/15/21 09:55 Weight - Most Recent: 167 lb 3.2 oz I&O - Last 24 Hours: Intake & Output 02/14/21 02/15/21 02/15/21 22:59 06:59 14:59 Intake Total 775 Output Total 75 160 Balance 700 -160 Lab Results Last 24 Hours: Laboratory Results - last 24 hr 02/15/21 02/15/21 Range/Units 05:30 05:30 WBC 4.1 L (4.5-11.0) K/uL RBC 2.53 L (4.30-5.90) M/uL Hgb 9.0 L (12.0-15.0) g/dL Hct 26.9 L (40.0-54.0) % MCV 106 H (80-98) fL MCH 36 H (27-31) pg MCHC 34 (32-36) % Plt Count 74 L (150-400) K/uL Neut % (Auto) 70 H (36-66) % Lymph % (Auto) 11 L (24-44) % Kern % (Auto) 17 H (2-6) % Eos % (Auto) 2 (2-4) % Baso % (Auto) 0 (0-1) % Sodium 130 L (140-148) mmol/L Potassium 3.5 L (3.6-5.2) mmol/L Chloride 93 L (100-108) mmol/L Carbon Dioxide 28 (21-32) mmol/L Anion Gap 12.5 (5.0-14.0) mmol/L BUN 12 (7-18) mg/dL Creatinine 0.9 (0.8-1.3) mg/dL Est Cr Clr Drug Dosing 76.32 mL/min Estimated GFR (MDRD) > 60 (>60) Glucose 100 (74-106) mg/dL Calcium 8.9 (8.5-10.1) mg/dL Magnesium 1.8 (1.8-2.4) mg/dL Total Bilirubin 2.0 H (0.2-1.0) mg/dL AST 106 H (15-37) U/L ALT 63 (12-78) U/L Alkaline Phosphatase 137 H (46-116) U/L Total Protein 5.9 L (6.4-8.2) g/dL Albumin 2.7 L (3.4-5.0) g/dL Globulin 3.2 (2.3-3.5) g/dL Albumin/Globulin Ratio 0.8 L (1.2-2.2) Med Orders - Current: Current Medications Albuterol (Albuterol 0.083% 2.5 Mg/3 Ml Neb Soln) 2.5 mg NEB Q4H PRN PRN Reason: Shortness Of Breath/wheezing Carvedilol (Carvedilol 12.5 Mg Tab) 12.5 mg PO BID [facility] Last Admin: 02/15/21 08:14 Dose: 12.5 mg Documented by: Cyanocobalamin (Cyanocobalamin (Vitamin B12) 1,000 Mcg Tab) 2,500 mcg PO DAILY [facility] Last Admin: 02/15/21 08:15 Dose: 2,500 mcg Documented by: Ferrous Sulfate (Ferrous Sulfate 325 Mg Tab) 325 mg PO BID [facility] Last Admin: 02/15/21 08:13 Dose: 325 mg Documented by: Folic Acid (Folic Acid 1 Mg Tab) 0.5 mg PO DAILY [facility] Last Admin: 02/15/21 08:13 Dose: 0.5 mg Documented by: Furosemide (Furosemide 40 Mg Tab) 40 mg PO DAILY [facility] Last Admin: 02/15/21 08:18 Dose: 40 mg Documented by: Gabapentin (Gabapentin 400 Mg Cap) 400 mg PO Q8H [facility] Stop: 02/16/21 06:01 Last Admin: 02/15/21 05:36 Dose: 400 mg Documented by: Gabapentin (Gabapentin 100 Mg Cap) 200 mg PO Q8H [facility] Stop: 02/20/21 14:01 Lorazepam (Lorazepam 1 Mg Tab) 0 mg PO ASDIRECTED PRN; Protocol PRN Reason: ALCOHOL WITHDRAWAL Last Admin: 02/14/21 22:17 Dose: 2 mg Documented by: Lorazepam (Lorazepam 2 Mg/Ml Sdv) 0 mg IV ASDIRECTED PRN; Protocol PRN Reason: ALCOHOL WITHDRAWAL Last Admin: 02/15/21 10:21 Dose: 2 mg Documented by: Losartan Potassium (Losartan 25 Mg Tab) 25 mg PO DAILY [facility] Last Admin: 02/15/21 08:13 Dose: 25 mg Documented by: Magnesium Oxide (Magnesium Oxide 400 Mg Tab) 400 mg PO BID [facility] Last Admin: 02/15/21 08:14 Dose: 400 mg Documented by: Ondansetron HCl (Ondansetron 4 Mg/2 Ml Sdv) 4 mg IV Q4H PRN PRN Reason: Nausea/Vomiting Pantoprazole Sodium (Pantoprazole 40 Mg Tab.Cr) 40 mg PO BIDAC [facility] Last Admin: 02/15/21 07:40 Dose: 40 mg Documented by: Polyethylene Glycol (Polyethylene Glycol 3350 Powder 17 Gm Packet) 17 gm PO DAILY PRN PRN Reason: Constipation Sodium Chloride (Sodium Chloride 0.9% 10 Ml Syringe) 10 ml FLUSH ASDIRECTED PRN PRN Reason: Keep Vein Open Thiamine HCl (Thiamine 100 Mg Tab) 100 mg PO DAILY [facility] Last Admin: 02/15/21 08:14 Dose: 100 mg Documented by: Discontinued Medications Sodium Chloride (Normal Saline) 1,000 mls @ 125 mls/hr IV ASDIRECTED [facility] Last Admin: 02/13/21 08:55 Dose: 125 mls/hr Documented by: Multivitamins/Minerals 10 ml/Thiamine HCl 100 mg/ Folic Acid 1 mg/ Magnesium Sulfate 2 gm/ Sodium Chloride 1,015.2 mls @ 100 mls/hr IV ONETIME ONE Stop: 02/13/21 00:39 Last Admin: 02/12/21 15:00 Dose: 100 mls/hr Documented by: Magnesium Sulfate (Magnesium Sulfate In Water 2 Gm/50 Ml) 2 gm in 50 mls @ 25 mls/hr IV Q6H [facility] Stop: 02/13/21 16:59 Last Admin: 03/18/21 14:22 Dose: 25 mls/hr Documented by: Magnesium Sulfate (Magnesium Sulfate In Water 2 Gm/50 Ml) 2 gm in 50 mls @ 12.5 mls/hr IV Q6H [facility] Stop: 02/14/21 23:59 Last Admin: 02/14/21 19:27 Dose: 12.5 mls/hr Documented by: Potassium Chloride (Potassium Chloride 20 Meq Tab.Er) 40 meq PO ONETIME ONE Stop: 02/13/21 08:16 Last Admin: 02/13/21 08:41 Dose: 40 meq Documented by: Potassium Chloride (Potassium Chloride 20 Meq Tab.Er) 40 meq PO ONETIME ONE Stop: 02/15/21 08:16 Last Admin: 02/15/21 09:14 Dose: 40 meq Documented by: Sodium Chloride (Sodium Chloride 0.9% 10 Ml Syringe) 10 ml FLUSH ASDIRECTED PRN PRN Reason: Keep Vein Open Last Admin: 02/12/21 12:12 Dose: 10 ml Documented by: - Exam Quality Assessment: DVT Prophylaxis General: Alert, Cooperative, Mild Distress. No: Oriented Lungs: Clear to Auscultation, Normal Respiratory Effort Cardiovascular: Regular Rate, Regular Rhythm, No Murmurs GI/Abdominal Exam: Soft, Non-Tender, No Organomegaly, No Distention Extremities: Non-Tender, No Pedal Edema - Patient Data Lab Results Last 24 hrs: Laboratory Results - last 24 hr 02/15/21 02/15/21 Range/Units 05:30 05:30 WBC 4.1 L (4.5-11.0) K/uL RBC 2.53 L (4.30-5.90) M/uL Hgb 9.0 L (12.0-15.0) g/dL Hct 26.9 L (40.0-54.0) % MCV 106 H (80-98) fL MCH 36 H (27-31) pg MCHC 34 (32-36) % Plt Count 74 L (150-400) K/uL Neut % (Auto) 70 H (36-66) % Lymph % (Auto) 11 L (24-44) % Kern % (Auto) 17 H (2-6) % Eos % (Auto) 2 (2-4) % Baso % (Auto) 0 (0-1) % Sodium 130 L (140-148) mmol/L Potassium 3.5 L (3.6-5.2) mmol/L Chloride 93 L (100-108) mmol/L Carbon Dioxide 28 (21-32) mmol/L Anion Gap 12.5 (5.0-14.0) mmol/L BUN 12 (7-18) mg/dL Creatinine 0.9 (0.8-1.3) mg/dL Est Cr Clr Drug Dosing 76.32 mL/min Estimated GFR (MDRD) > 60 (>60) Glucose 100 (74-106) mg/dL Calcium 8.9 (8.5-10.1) mg/dL Magnesium 1.8 (1.8-2.4) mg/dL Total Bilirubin 2.0 H (0.2-1.0) mg/dL AST 106 H (15-37) U/L ALT 63 (12-78) U/L Alkaline Phosphatase 137 H (46-116) U/L Total Protein 5.9 L (6.4-8.2) g/dL Albumin 2.7 L (3.4-5.0) g/dL Globulin 3.2 (2.3-3.5) g/dL Albumin/Globulin Ratio 0.8 L (1.2-2.2) Result Diagrams: 02/15/21 05:30 02/15/21 05:30 Sepsis Event Note - Evaluation Sepsis Screening Result: No Definite Risk - Focused Exam Vital Signs: Vital Signs Temp Pulse Pulse Resp BP BP Pulse Ox 02/15/21 09:55 98.2 F 100 15 101/71 100 02/15/21 08:14 87 113/78 02/15/21 08:13 113/78 02/15/21 08:00 98.6 F 95 15 113/78 99 02/15/21 06:00 97.3 F 87 16 115/73 97 02/15/21 03:54 97.1 F 84 12 104/71 97 02/15/21 02:00 97.3 F 80 19 97 02/15/21 00:00 97.4 F 88 14 129/71 96 - Problem List Review Problem List Initiated/Reviewed/Updated: Yes - My Orders Last 24 Hours: My Active Orders 02/16/21 05:00 CBC WITH AUTO DIFF [HEME] Timed COMPREHENSIVE METABOLIC PN,CMP [CHEM] Timed 02/16/21 14:00 Gabapentin [Neurontin] 200 mg PO Q8H - Plan Plan:: ASSESSMENT AND PLAN GENERALIZED WEAKNESS-progressive over the past few weeks, no focal neurologic f indings. No evidence of underlying infection, significant metabolic abnormality, or medication effect. Appetite has been poor and is likely a contributing factor. History of longstanding alcohol use and abuse as well as underlying congestive heart failure and anemia. -Saline lock IV -Physical therapy consult PROBABLE ALCOHOL WITHDRAWAL-more tremulous and confused over the last 24 hours -Alcohol withdrawal protocol -Gabapentin 400 mg p.o. 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 CT scan of the abdomen and pelvis showed no evidence of obstruction -Reassess labs in a.m. CHRONIC KIDNEY DISEASE STAGE III-renal function has improved with hydration -Closely monitor urine output and renal function CONGESTIVE HEART FAILURE-status post defibrillator placement. Echocardiogram shows severely decreased left ventricular systolic function, grade 2 diastolic dysfunction, and severe mitral regurgitation. -Continue outpatient medical therapy PANCYTOPENIA-hemoglobin stable following transfusion of 1 unit of red blood cells yesterday. There has been no evidence of active bleeding. He does have a significant elevation in MCV, possibly related to alcohol use versus underlying myelodysplastic syndrome. Labs unremarkable, peripheral smear pending -Reassess hemoglobin in a.m. MAINTENANCE ISSUES -DVT prophylaxis; SCUDs, not a candidate for anticoagulation because of thrombocytopenia -GI prophylaxis; continue outpatient PPI therapy -Paez catheter; not indicated -Nutrition; 2 g sodium diet -Nicotine dependence; not required CODE STATUS-FULL CODE ADMISSION STATUS-patient will be admitted to inpatient status, expect at least a 2 night hospital stay for evaluation and management of problems as outlined above. At the time of this admission I do not reasonably expected evaluation and management of this problem will require more than a 96 hour hospital stay. DISPOSITION-anticipate discharge to home after the hospital stay. PRIMARY CARE PROVIDER-Dr. Rose
[2021-02-15] MEDS ORDERED: Sodium Chloride 0.9% 1,000 ML IV SCH (18:30)
[2021-02-15] MEDS ORDERED: Sodium Chloride 0.9% 500 ML IV ONE (21:20)
[2021-02-16] MEDS: LORazepam 2 MG/ML SDV IV PRN ×15 (00:18→19:33)
[2021-02-16] MEDS: Gabapentin 400 MG Cap PO SCH (05:41)
[2021-02-16] MEDS: Pantoprazole 40 MG Tab.CR PO SCH ×2 (07:34→16:23)
[2021-02-16] MEDS: Cyanocobalamin (Vitamin B12) 1,000 MCG Tab PO SCH (08:31)
[2021-02-16] MEDS: Folic Acid 1 MG Tab PO SCH (08:32)
[2021-02-16] MEDS: Magnesium Oxide 400 MG Tab PO SCH ×2 (08:33→21:06)
[2021-02-16] MEDS: Ferrous Sulfate 325 MG Tab PO SCH ×2 (08:33→21:06)
[2021-02-16] MEDS: Thiamine 100 MG Tab PO SCH (08:34)
[2021-02-16] MEDS: Carvedilol 12.5 MG Tab PO SCH ×2 (08:35→21:06)
[2021-02-16] MEDS: Furosemide 40 MG Tab PO SCH (08:35)
--- NOTE | 2021-02-16 11:00 | PCM.PN ---
- General Info Date of Service: 02/16/21 Subjective Update: Mr. Austin continues to experience significant alcohol withdrawal. He is confused and mildly agitated this morning. Unable to provide meaningful information concerning symptoms or review of systems. - Patient Data Vitals - Most Recent: Last Vital Signs Temp 97.3 F 02/16/21 08:00 Pulse 95 02/16/21 10:00 Resp 14 02/16/21 10:00 BP 106/70 02/16/21 10:00 Pulse Ox 99 02/16/21 10:00 Weight - Most Recent: 167 lb 3.2 oz I&O - Last 24 Hours: Intake & Output 02/15/21 02/16/21 02/16/21 22:59 06:59 14:59 Intake Total 620 1100 Balance 620 1100 Lab Results Last 24 Hours: Laboratory Results - last 24 hr 02/16/21 02/16/21 Range/Units 05:33 05:33 WBC 3.7 L (4.5-11.0) K/uL RBC 2.59 L (4.30-5.90) M/uL Hgb 9.3 L (12.0-15.0) g/dL Hct 27.7 L (40.0-54.0) % MCV 107 H (80-98) fL MCH 36 H (27-31) pg MCHC 34 (32-36) % Plt Count 77 L (150-400) K/uL Neut % (Auto) 56 (36-66) % Lymph % (Auto) 12 L (24-44) % [place] % (Auto) 29 H (2-6) % Eos % (Auto) 3 (2-4) % Baso % (Auto) 0 (0-1) % Sodium 132 L (140-148) mmol/L Potassium 4.7 (3.6-5.2) mmol/L Chloride 97 L (100-108) mmol/L Carbon Dioxide 26 (21-32) mmol/L Anion Gap 13.7 (5.0-14.0) mmol/L BUN 12 (7-18) mg/dL Creatinine 0.9 (0.8-1.3) mg/dL Est Cr Clr Drug Dosing 76.32 mL/min Estimated GFR (MDRD) > 60 (>60) Glucose 93 (74-106) mg/dL Calcium 9.0 (8.5-10.1) mg/dL Total Bilirubin 1.8 H (0.2-1.0) mg/dL AST 91 H (15-37) U/L ALT 58 (12-78) U/L Alkaline Phosphatase 126 H (46-116) U/L Total Protein 5.8 L (6.4-8.2) g/dL Albumin 2.6 L (3.4-5.0) g/dL Globulin 3.2 (2.3-3.5) g/dL Albumin/Globulin Ratio 0.8 L (1.2-2.2) Med Orders - Current: Current Medications Albuterol (Albuterol 0.083% 2.5 Mg/3 Ml Neb Soln) 2.5 mg NEB Q4H PRN PRN Reason: Shortness Of Breath/wheezing Carvedilol (Carvedilol 12.5 Mg Tab) 12.5 mg PO BID [facility] Last Admin: 02/16/21 08:35 Dose: 12.5 mg Documented by: Cyanocobalamin (Cyanocobalamin (Vitamin B12) 1,000 Mcg Tab) 2,500 mcg PO DAILY [facility] Last Admin: 02/16/21 08:31 Dose: 2,500 mcg Documented by: Ferrous Sulfate (Ferrous Sulfate 325 Mg Tab) 325 mg PO BID [facility] Last Admin: 02/16/21 08:33 Dose: 325 mg Documented by: Folic Acid (Folic Acid 1 Mg Tab) 0.5 mg PO DAILY [facility] Last Admin: 02/16/21 08:32 Dose: 0.5 mg Documented by: Furosemide (Furosemide 40 Mg Tab) 40 mg PO DAILY [facility] Last Admin: 02/16/21 08:35 Dose: 40 mg Documented by: Gabapentin (Gabapentin 100 Mg Cap) 200 mg PO Q8H [facility] Stop: 02/20/21 14:01 Lorazepam (Lorazepam 1 Mg Tab) 0 mg PO ASDIRECTED PRN; Protocol PRN Reason: ALCOHOL WITHDRAWAL Last Admin: 02/14/21 22:17 Dose: 2 mg Documented by: Lorazepam (Lorazepam 2 Mg/Ml Sdv) 0 mg IV ASDIRECTED PRN; Protocol PRN Reason: ALCOHOL WITHDRAWAL Last Admin: 02/16/21 10:30 Dose: 2 mg Documented by: Magnesium Oxide (Magnesium Oxide 400 Mg Tab) 400 mg PO BID [facility] Last Admin: 02/16/21 08:33 Dose: 400 mg Documented by: Ondansetron HCl (Ondansetron 4 Mg/2 Ml Sdv) 4 mg IV Q4H PRN PRN Reason: Nausea/Vomiting Pantoprazole Sodium (Pantoprazole 40 Mg Tab.Cr) 40 mg PO BIDAC [facility] Last Admin: 02/16/21 07:34 Dose: 40 mg Documented by: Polyethylene Glycol (Polyethylene Glycol 3350 Powder 17 Gm Packet) 17 gm PO DAILY PRN PRN Reason: Constipation Sodium Chloride (Sodium Chloride 0.9% 10 Ml Syringe) 10 ml FLUSH ASDIRECTED PRN PRN Reason: Keep Vein Open Thiamine HCl (Thiamine 100 Mg Tab) 100 mg PO DAILY [facility] Last Admin: 02/16/21 08:34 Dose: 100 mg Documented by: Discontinued Medications Gabapentin (Gabapentin 400 Mg Cap) 400 mg PO Q8H [facility] Stop: 02/16/21 06:01 Last Admin: 02/16/21 05:41 Dose: 400 mg Documented by: Sodium Chloride (Normal Saline) 1,000 mls @ 125 mls/hr IV ASDIRECTED [facility] Last Admin: 02/13/21 08:55 Dose: 125 mls/hr Documented by: Multivitamins/Minerals 10 ml/Thiamine HCl 100 mg/ Folic Acid 1 mg/ Magnesium Sulfate 2 gm/ Sodium Chloride 1,015.2 mls @ 100 mls/hr IV ONETIME ONE Stop: 02/13/21 00:39 Last Admin: 02/12/21 15:00 Dose: 100 mls/hr Documented by: Magnesium Sulfate (Magnesium Sulfate In Water 2 Gm/50 Ml) 2 gm in 50 mls @ 25 mls/hr IV Q6H [facility] Stop: 02/13/21 16:59 Last Admin: 02/13/21 14:22 Dose: 25 mls/hr Documented by: Magnesium Sulfate (Magnesium Sulfate In Water 2 Gm/50 Ml) 2 gm in 50 mls @ 12.5 mls/hr IV Q6H [facility] Stop: 02/14/21 23:59 Last Admin: 02/14/21 19:27 Dose: 12.5 mls/hr Documented by: Sodium Chloride (Normal Saline) 1,000 mls @ 100 mls/hr IV ASDIRECTED [facility] Last Admin: 02/16/21 04:19 Dose: 100 mls/hr Documented by: Sodium Chloride (Normal Saline) 500 mls @ 500 mls/hr IV ONETIME ONE Stop: 02/15/21 22:19 Last Admin: 02/15/21 21:36 Dose: 500 mls/hr Documented by: Losartan Potassium (Losartan 25 Mg Tab) 25 mg PO DAILY [facility] Last Admin: 02/15/21 08:13 Dose: 25 mg Documented by: Potassium Chloride (Potassium Chloride 20 Meq Tab.Er) 40 meq PO ONETIME ONE Stop: 02/13/21 08:16 Last Admin: 02/13/21 08:41 Dose: 40 meq Documented by: Potassium Chloride (Potassium Chloride 20 Meq Tab.Er) 40 meq PO ONETIME ONE Stop: 02/15/21 08:16 Last Admin: 02/15/21 09:14 Dose: 40 meq Documented by: Sodium Chloride (Sodium Chloride 0.9% 10 Ml Syringe) 10 ml FLUSH ASDIRECTED PRN PRN Reason: Keep Vein Open Last Admin: 02/12/21 12:12 Dose: 10 ml Documented by: - Exam Quality Assessment: DVT Prophylaxis General: Alert, Cooperative, Moderate Distress. No: Oriented Lungs: Clear to Auscultation, Normal Respiratory Effort Cardiovascular: Regular Rate, Regular Rhythm, No Murmurs GI/Abdominal Exam: Soft, Non-Tender, No Organomegaly, No Distention Extremities: Non-Tender, No Pedal Edema - Patient Data Lab Results Last 24 hrs: Laboratory Results - last 24 hr 02/16/21 02/16/21 Range/Units 05:33 05:33 WBC 3.7 L (4.5-11.0) K/uL RBC 2.59 L (4.30-5.90) M/uL Hgb 9.3 L (12.0-15.0) g/dL Hct 27.7 L (40.0-54.0) % MCV 107 H (80-98) fL MCH 36 H (27-31) pg MCHC 34 (32-36) % Plt Count 77 L (150-400) K/uL Neut % (Auto) 56 (36-66) % Lymph % (Auto) 12 L (24-44) % [place] % (Auto) 29 H (2-6) % Eos % (Auto) 3 (2-4) % Baso % (Auto) 0 (0-1) % Sodium 132 L (140-148) mmol/L Potassium 4.7 (3.6-5.2) mmol/L Chloride 97 L (100-108) mmol/L Carbon Dioxide 26 (21-32) mmol/L Anion Gap 13.7 (5.0-14.0) mmol/L BUN 12 (7-18) mg/dL Creatinine 0.9 (0.8-1.3) mg/dL Est Cr Clr Drug Dosing 76.32 mL/min Estimated GFR (MDRD) > 60 (>60) Glucose 93 (74-106) mg/dL Calcium 9.0 (8.5-10.1) mg/dL Total Bilirubin 1.8 H (0.2-1.0) mg/dL AST 91 H (15-37) U/L ALT 58 (12-78) U/L Alkaline Phosphatase 126 H (46-116) U/L Total Protein 5.8 L (6.4-8.2) g/dL Albumin 2.6 L (3.4-5.0) g/dL Globulin 3.2 (2.3-3.5) g/dL Albumin/Globulin Ratio 0.8 L (1.2-2.2) Result Diagrams: 02/16/21 05:33 02/16/21 05:33 Sepsis Event Note - Evaluation Sepsis Screening Result: No Definite Risk - Focused Exam Vital Signs: Vital Signs Temp Pulse Pulse Resp BP BP Pulse Ox 02/16/21 10:00 95 14 106/70 99 02/16/21 08:35 79 102/70 02/16/21 08:00 97.3 F 97 12 99/66 100 02/16/21 07:00 83 14 109/76 100 02/16/21 06:00 80 14 117/81 100 02/16/21 05:00 68 9 L 117/65 100 02/16/21 04:00 96.0 F L 74 10 L 109/68 99 02/16/21 03:00 96.0 F L 75 18 99/66 100 02/16/21 02:00 65 8 L 89/53 L 98 02/16/21 01:00 78 18 110/79 100 02/16/21 00:00 98.1 F 86 11 L 104/68 99 02/15/21 23:00 97.1 F 88 15 96/65 100 - Problem List Review Problem List Initiated/Reviewed/Updated: Yes - My Orders Last 24 Hours: My Active Orders 02/16/21 11:00 Sodium Chloride 0.9% @ 50 MLS/HR(1000ml) Sodium Chloride 0.9% [Normal Saline] 1,000 ml IV ASDIRECTED 02/16/21 14:00 Gabapentin [Neurontin] 200 mg PO Q8H 02/17/21 05:00 CBC WITH AUTO DIFF [HEME] Timed COMPREHENSIVE METABOLIC PN,CMP [CHEM] Timed - Plan Plan:: ASSESSMENT AND PLAN GENERALIZED WEAKNESS-progressive over the past few weeks, no focal neurologic findings. No evidence of underlying infection, significant metabolic abnormality, or medication effect. Appetite has been poor and is likely a contributing factor. History of longstanding alcohol use and abuse as well as u nderlying congestive heart failure and anemia. -Physical therapy consult ALCOHOL WITHDRAWAL DELIRIUM-currently in obvious alcohol withdrawal -Alcohol withdrawal protocol -Gabapentin 400 mg p.o. 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 CT scan of the abdomen and pelvis showed no evidence of obstruction -Reassess labs in a.m. CHRONIC KIDNEY DISEASE STAGE III-renal function has improved with hydration -Closely monitor urine output and renal function CONGESTIVE HEART FAILURE-status post defibrillator placement. Echocardiogram shows severely decreased left ventricular systolic function, grade 2 diastolic dysfunction, and severe mitral regurgitation. -Continue outpatient medical therapy PANCYTOPENIA-hemoglobin has remained stable following transfusion of 1 unit of red blood cells. Likely secondary to chronic disease and longstanding alcohol use -Reassess hemoglobin in a.m. -Peripheral smear pending MAINTENANCE ISSUES -DVT prophylaxis; SCUDs, not a candidate for anticoagulation because of throm bocytopenia -GI prophylaxis; continue outpatient PPI therapy -Paez catheter; not indicated -Nutrition; 2 g sodium diet -Nicotine dependence; not required CODE STATUS-FULL CODE ADMISSION STATUS-patient will be admitted to inpatient status, expect at least a 2 night hospital stay for evaluation and management of problems as outlined above. At the time of this admission I do not reasonably expected evaluation and management of this problem will require more than a 96 hour hospital stay. DISPOSITION-anticipate discharge to home after the hospital stay. PRIMARY CARE PROVIDER-Dr. Rose
[2021-02-16] MEDS: Gabapentin 100 MG Cap PO SCH ×2 (14:24→21:05)
[2021-02-16] MEDS: Sodium Chloride 0.9% 1,000 ML IV SCH (14:43)
[2021-02-17] MEDS: Gabapentin 100 MG Cap PO SCH ×3 (05:12→21:19)
--- NOTE | 2021-02-17 09:12 | PCM.PN ---
- General Info Date of Service: 02/17/21 Subjective Update: There were no acute events overnight. The patient is very lethargic today and not able to participate in any sort of conversation. His last lorazepam was late last night around bedtime. His vital signs have been stable. He has not had any fevers. Laboratory studies seem to be slowly improving. Functional Status: Reports: Other (obtunded) - Review of Systems General: Denies: Fever - Patient Data Vitals - Most Recent: Last Vital Signs Temp 35.8 C L 02/17/21 07:00 Pulse 76 02/17/21 08:00 Resp 12 02/17/21 08:00 BP 82/39 L 02/17/21 08:00 Pulse Ox 100 02/17/21 08:00 Weight - Most Recent: 75.841 kg I&O - Last 24 Hours: Intake & Output 02/16/21 02/17/21 02/17/21 22:59 06:59 14:59 Intake Total 240 658 Output Total 100 Balance 240 558 Lab Results Last 24 Hours: Laboratory Results - last 24 hr 02/13/21 02/17/21 02/17/21 Range/Units 04:46 04:50 04:50 WBC 3.7 L (4.5-11.0) K/uL RBC 2.45 L (4.30-5.90) M/uL Hgb 8.8 L (12.0-15.0) g/dL Hct 26.3 L (40.0-54.0) % MCV 107 H (80-98) fL MCH 36 H (27-31) pg MCHC 34 (32-36) % Plt Count 69 L (150-400) K/uL Neut % (Auto) 70 H (36-66) % Lymph % (Auto) 10 L (24-44) % [place] % (Auto) 16 H (2-6) % Eos % (Auto) 3 (2-4) % Baso % (Auto) 1 (0-1) % Sodium 136 L (140-148) mmol/L Potassium 3.9 (3.6-5.2) mmol/L Chloride 100 (100-108) mmol/L Carbon Dioxide 26 (21-32) mmol/L Anion Gap 13.9 (5.0-14.0) mmol/L BUN 8 (7-18) mg/dL Creatinine 0.8 (0.8-1.3) mg/dL Est Cr Clr Drug Dosing 85.86 mL/min Estimated GFR (MDRD) > 60 (>60) Glucose 77 (74-106) mg/dL Calcium 8.7 (8.5-10.1) mg/dL Total Bilirubin 1.5 H (0.2-1.0) mg/dL AST 105 H (15-37) U/L ALT 56 (12-78) U/L Alkaline Phosphatase 127 H (46-116) U/L Total Protein 5.2 L (6.4-8.2) g/dL Albumin 2.3 L (3.4-5.0) g/dL Globulin 2.9 (2.3-3.5) g/dL Albumin/Globulin Ratio 0.8 L (1.2-2.2) Crossmatch See Detail Med Orders - Current: Current Medications Albuterol (Albuterol 0.083% 2.5 Mg/3 Ml Neb Soln) 2.5 mg NEB Q4H PRN PRN Reason: Shortness Of Breath/wheezing Carvedilol (Carvedilol 12.5 Mg Tab) 12.5 mg PO BID [facility] Last Admin: 02/16/21 21:06 Dose: 12.5 mg Documented by: Cyanocobalamin (Cyanocobalamin (Vitamin B12) 1,000 Mcg Tab) 2,500 mcg PO DAILY [facility] Last Admin: 02/16/21 08:31 Dose: 2,500 mcg Documented by: Ferrous Sulfate (Ferrous Sulfate 325 Mg Tab) 325 mg PO BID [facility] Last Admin: 02/16/21 21:06 Dose: 325 mg Documented by: Folic Acid (Folic Acid 1 Mg Tab) 0.5 mg PO DAILY [facility] Last Admin: 02/16/21 08:32 Dose: 0.5 mg Documented by: Furosemide (Furosemide 40 Mg Tab) 40 mg PO DAILY [facility] Last Admin: 02/16/21 08:35 Dose: 40 mg Documented by: Gabapentin (Gabapentin 100 Mg Cap) 200 mg PO Q8H [facility] Stop: 02/20/21 14:01 Last Admin: 02/17/21 05:12 Dose: 200 mg Documented by: Sodium Chloride (Normal Saline) 1,000 mls @ 50 mls/hr IV ASDIRECTED [facility] Last Admin: 02/16/21 14:43 Dose: 50 mls/hr Documented by: Lorazepam (Lorazepam 1 Mg Tab) 0 mg PO ASDIRECTED PRN; Protocol PRN Reason: ALCOHOL WITHDRAWAL Last Admin: 02/14/21 22:17 Dose: 2 mg Documented by: Lorazepam (Lorazepam 2 Mg/Ml Sdv) 0 mg IV ASDIRECTED PRN; Protocol PRN Reason: ALCOHOL WITHDRAWAL Last Admin: 02/16/21 19:33 Dose: 2 mg Documented by: Magnesium Oxide (Magnesium Oxide 400 Mg Tab) 400 mg PO BID [facility] Last Admin: 02/16/21 21:06 Dose: 400 mg Documented by: Ondansetron HCl (Ondansetron 4 Mg/2 Ml Sdv) 4 mg IV Q4H PRN PRN Reason: Nausea/Vomiting Pantoprazole Sodium (Pantoprazole 40 Mg Tab.Cr) 40 mg PO BIDAC [facility] Last Admin: 02/16/21 16:23 Dose: 40 mg Documented by: Polyethylene Glycol (Polyethylene Glycol 3350 Powder 17 Gm Packet) 17 gm PO DAILY PRN PRN Reason: Constipation Sodium Chloride (Sodium Chloride 0.9% 10 Ml Syringe) 10 ml FLUSH ASDIRECTED PRN PRN Reason: Keep Vein Open Thiamine HCl (Thiamine 100 Mg Tab) 100 mg PO DAILY [facility] Last Admin: 02/16/21 08:34 Dose: 100 mg Documented by: Discontinued Medications Gabapentin (Gabapentin 400 Mg Cap) 400 mg PO Q8H [facility] Stop: 02/16/21 06:01 Last Admin: 02/16/21 05:41 Dose: 400 mg Documented by: Sodium Chloride (Normal Saline) 1,000 mls @ 125 mls/hr IV ASDIRECTED [facility] Last Admin: 02/13/21 08:55 Dose: 125 mls/hr Documented by: Multivitamins/Minerals 10 ml/Thiamine HCl 100 mg/ Folic Acid 1 mg/ Magnesium Sulfate 2 gm/ Sodium Chloride 1,015.2 mls @ 100 mls/hr IV ONETIME ONE Stop: 02/13/21 00:39 Last Admin: 02/12/21 15:00 Dose: 100 mls/hr Documented by: Magnesium Sulfate (Magnesium Sulfate In Water 2 Gm/50 Ml) 2 gm in 50 mls @ 25 mls/hr IV Q6H [facility] Stop: 02/13/21 16:59 Last Admin: 02/13/21 14:22 Dose: 25 mls/hr Documented by: Magnesium Sulfate (Magnesium Sulfate In Water 2 Gm/50 Ml) 2 gm in 50 mls @ 12.5 mls/hr IV Q6H [facility] Stop: 02/14/21 23:59 Last Admin: 02/14/21 19:27 Dose: 12.5 mls/hr Documented by: Sodium Chloride (Normal Saline) 1,000 mls @ 100 mls/hr IV ASDIRECTED [facility] Last Admin: 02/16/21 04:19 Dose: 100 mls/hr Documented by: Sodium Chloride (Normal Saline) 500 mls @ 500 mls/hr IV ONETIME ONE Stop: 02/15/21 22:19 Last Admin: 02/15/21 21:36 Dose: 500 mls/hr Documented by: Losartan Potassium (Losartan 25 Mg Tab) 25 mg PO DAILY [facility] Last Admin: 02/15/21 08:13 Dose: 25 mg Documented by: Potassium Chloride (Potassium Chloride 20 Meq Tab.Er) 40 meq PO ONETIME ONE Stop: 02/13/21 08:16 Last Admin: 02/13/21 08:41 Dose: 40 meq Documented by: Potassium Chloride (Potassium Chloride 20 Meq Tab.Er) 40 meq PO ONETIME ONE Stop: 02/15/21 08:16 Last Admin: 02/15/21 09:14 Dose: 40 meq Documented by: Sodium Chloride (Sodium Chloride 0.9% 10 Ml Syringe) 10 ml FLUSH ASDIRECTED PRN PRN Reason: Keep Vein Open Last Admin: 02/12/21 12:12 Dose: 10 ml Documented by: - Exam Quality Assessment: Supplemental Oxygen General: No Acute Distress, Obtunded. No: Alert Neck: Supple, Trachea Midline Lungs: Clear to Auscultation, Normal Respiratory Effort Cardiovascular: Regular Rate, Regular Rhythm GI/Abdominal Exam: Soft, No Distention Extremities: Pedal Edema (mild bilateral ankle edema ). No: Increased Warmth Skin: Warm, Dry Psy/Mental Status: No: Alert, Agitated - Patient Data Lab Results Last 24 hrs: Laboratory Results - last 24 hr 02/13/21 02/17/21 02/17/21 Range/Units 04:46 04:50 04:50 WBC 3.7 L (4.5-11.0) K/uL RBC 2.45 L (4.30-5.90) M/uL Hgb 8.8 L (12.0-15.0) g/dL Hct 26.3 L (40.0-54.0) % MCV 107 H (80-98) fL MCH 36 H (27-31) pg MCHC 34 (32-36) % Plt Count 69 L (150-400) K/uL Neut % (Auto) 70 H (36-66) % Lymph % (Auto) 10 L (24-44) % [place] % (Auto) 16 H (2-6) % Eos % (Auto) 3 (2-4) % Baso % (Auto) 1 (0-1) % Sodium 136 L (140-148) mmol/L Potassium 3.9 (3.6-5.2) mmol/L Chloride 100 (100-108) mmol/L Carbon Dioxide 26 (21-32) mmol/L Anion Gap 13.9 (5.0-14.0) mmol/L BUN 8 (7-18) mg/dL Creatinine 0.8 (0.8-1.3) mg/dL Est Cr Clr Drug Dosing 85.86 mL/min Estimated GFR (MDRD) > 60 (>60) Glucose 77 (74-106) mg/dL Calcium 8.7 (8.5-10.1) mg/dL Total Bilirubin 1.5 H (0.2-1.0) mg/dL AST 105 H (15-37) U/L ALT 56 (12-78) U/L Alkaline Phosphatase 127 H (46-116) U/L Total Protein 5.2 L (6.4-8.2) g/dL Albumin 2.3 L (3.4-5.0) g/dL Globulin 2.9 (2.3-3.5) g/dL Albumin/Globulin Ratio 0.8 L (1.2-2.2) Crossmatch See Detail Result Diagrams: 02/17/21 04:50 02/17/21 04:50 Sepsis Event Note - Evaluation Sepsis Screening Result: No Definite Risk - Focused Exam Vital Signs: Vital Signs Temp Pulse Resp BP Pulse Ox 02/17/21 08:00 76 12 82/39 L 100 02/17/21 07:00 35.8 C L 76 9 L 105/59 L 100 02/17/21 06:00 66 12 96/51 L 100 02/17/21 05:00 86 9 L 117/64 100 02/17/21 04:00 69 11 L 108/65 96 02/17/21 03:00 36.4 C 86 13 101/68 100 02/17/21 02:00 62 8 L 98/59 L 100 02/17/21 01:00 70 9 L 110/59 L 100 02/17/21 00:00 35.9 C L 76 10 L 101/65 100 02/16/21 23:00 61 10 L 109/55 L 100 02/16/21 22:00 64 9 L 110/59 L 99 - Problem List Review Problem List Initiated/Reviewed/Updated: Yes - My Orders Last 24 Hours: My Active Orders 02/18/21 05:00 CBC W/O DIFF,HEMOGRAM [HEME] Timed (1) COMPREHENSIVE METABOLIC PN,CMP [CHEM] Timed MAGNESIUM [CHEM] Timed - Plan Plan:: ASSESSMENT AND PLAN - ALCOHOL WITHDRAWAL DELIRIUM-still experiencing significant withdrawal and receiving lorazepam per protocol. Quite lethargic today but not agitated. -Alcohol withdrawal protocol with lorazepam -Gabapentin 400 mg p.o. 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 Laboratory studies slowly improving. -Reassess labs in a.m. CHRONIC KIDNEY DISEASE STAGE III-renal function has improved with hydration. -Closely monitor urine output and renal function CONGESTIVE HEART FAILURE-status post defibrillator placement. Echocardiogram shows severely decreased left ventricular systolic function, grade 2 diastolic dysfunction, and severe mitral regurgitation. Volume status appropriate today. -Continue outpatient medical therapy PANCYTOPENIA-hemoglobin has remained stable following transfusion of 1 unit of red blood cells. Likely secondary to chronic disease and longstanding alcohol use -Reassess hemoglobin in a.m. -Peripheral smear pending GENERALIZED WEAKNESS-progressive over the past few weeks, no focal neurologic findings. Probably related to chronic alcohol use and systolic heart failure. -Physical therapy consult MAINTENANCE ISSUES -DVT prophylaxis; SCUDs, not a candidate for anticoagulation because of thrombocytopenia -GI prophylaxis; continue outpatient PPI therapy -Paez catheter; not indicated -Nutrition; 2 g sodium diet DISPOSITION-anticipate discharge to alf for subacute rehab after the hospital stay. Bruce Alexis MD
[2021-02-17] MEDS: Sodium Chloride 0.9% 1,000 ML IV SCH (09:55)
[2021-02-17 13:12] LABS: BASOS 0 % (Not Estab.); EOS 0 % (Not Estab.); HEMATOCRIT 24.3 % (37.5-51.0); HEMATOLOGY COMMENTS: Note: (.); HEMOGLOBIN 8.5 g/dL (13.0-17.7); IMMATURE CELLS Note (.); LYMPHS 8 % (Not Estab.); LYMPHS (ABSOLUTE) 0.2 x10E3/uL (0.7-3.1); MCH 37.1 pg (26.6-33.0); MCV 106 fL (79-97); MONOCYTES 11 % (Not Estab.); MONOCYTES(ABSOLUTE) 0.3 x10E3/uL (0.1-0.9); MYELOCYTES 2 % (0 - 0); NEUTROPHILS 79 % (Not Estab.); NEUTROPHILS (ABSOLUTE) 2.4 x10E3/uL (1.4-7.0); NRBC 1 % (0 - 0); PLATELETS 50 x10E3/uL (150-450); RBC 2.29 x10E6/uL (4.14-5.80); RDW 15.2 % (11.6-15.4); WBC 3.1 x10E3/uL (3.4-10.8)
[2021-02-17] MEDS: Carvedilol 12.5 MG Tab PO SCH ×2 (13:38→20:12)
[2021-02-17] MEDS: LORazepam 1 MG Tab PO PRN ×2 (13:58→20:12)
[2021-02-17] MEDS: Pantoprazole 40 MG Tab.CR PO SCH ×2 (13:59→16:23)
[2021-02-17] MEDS: Folic Acid 1 MG Tab PO SCH (13:59)
[2021-02-17] MEDS: Thiamine 100 MG Tab PO SCH (14:07)
[2021-02-17] MEDS: Ferrous Sulfate 325 MG Tab PO SCH ×2 (14:07→20:13)
[2021-02-17] MEDS: Cyanocobalamin (Vitamin B12) 1,000 MCG Tab PO SCH (14:07)
[2021-02-17] MEDS: Furosemide 40 MG Tab PO SCH (14:07)
[2021-02-17] MEDS: Magnesium Oxide 400 MG Tab PO SCH ×2 (14:07→20:13)
[2021-02-18] MEDS: Gabapentin 100 MG Cap PO SCH ×3 (05:48→21:57)
[2021-02-18] MEDS: Pantoprazole 40 MG Tab.CR PO SCH ×2 (07:52→15:57)
[2021-02-18] MEDS: LORazepam 1 MG Tab PO PRN (07:52)
--- NOTE | 2021-02-18 09:13 | PCM.PN ---
- General Info Date of Service: 02/18/21 Subjective Update: There were no acute events overnight. Patient does more alert today but still somewhat sleepy. He did receive a dose of lorazepam around 7 AM this morning. No obvious tremors today. Still weak and somewhat unsteady on his feet but moving a little bit better. No fevers. Bilirubin and AST and ALT have improved further. Appetite has been okay. Functional Status: Reports: Pain Controlled, Tolerating Diet - Review of Systems General: Reports: Weakness. Denies: Fever - Patient Data Vitals - Most Recent: Last Vital Signs Temp 36.8 C 02/18/21 07:54 Pulse 89 02/18/21 07:54 Resp 14 02/18/21 07:54 BP 125/76 02/18/21 07:54 Pulse Ox 99 02/18/21 07:54 Weight - Most Recent: 75.841 kg I&O - Last 24 Hours: Intake & Output 02/17/21 02/18/21 02/18/21 22:59 06:59 14:59 Intake Total 1408 500 Output Total 565 400 Balance 843 100 Lab Results Last 24 Hours: Laboratory Results - last 24 hr 02/13/21 02/18/21 02/18/21 Range/Units 17:48 04:40 04:40 WBC 3.3 L (4.5-11.0) K/uL WBC (Send Out) 3.1 L (3.4-10.8) x10E3/uL RBC 2.30 L (4.30-5.90) M/uL RBC (Send Out) 2.29 L (4.14-5.80) x10E6/uL Hgb 8.3 L (12.0-15.0) g/dL Hgb (Send Out) 8.5 L (13.0-17.7) g/dL Hct 24.7 L (40.0-54.0) % Hct (Send Out) 24.3 L (37.5-51.0) % MCV 107 H (80-98) fL MCV (Send Out) 106 H (79-97) fL MCH 36 H (27-31) pg MCH (Send Out) 37.1 H (26.6-33.0) pg MCHC 34 (32-36) % MCHC (Send Out) 35.0 (31.5-35.7) g/dL Red Cell Dist (Send Out) 15.2 (11.6-15.4) % Plt Count 104 L (150-400) K/uL Plt Count (Send Out) 50 L (150-450) x10E3/uL Diff Scan Comment (.) Immature Gran % TNP Neutrophils % Send Out 79 (Not Estab.) % Band Neutrophils % TNP Lymphocytes % (Send Out) 8 (Not Estab.) % Monocytes % (Send Out) 11 (Not Estab.) % Eosinophils % Send Out 0 (Not Estab.) % Basophils % (Send Out) 0 (Not Estab.) % Metamyelocytes % TNP Myelocytes % 2 H (0 - 0) % Promyelocytes % TNP Blast Cells % TNP Megakaryocytes % TNP Other Cells % TNP Immature Gran # TNP Neutrophils # (Send Out) 2.4 (1.4-7.0) x10E3/uL Lymphocytes # (Send Out) 0.2 L (0.7-3.1) x10E3/uL Monocytes #(Send Out) 0.3 (0.1-0.9) x10E3/uL Eosinophils # Send Out 0.0 (0.0-0.4) x10E3/uL Basophils # (Send Out) 0.0 (0.0-0.2) x10E3/uL Nucleated RBCs Send Out 1 H (0 - 0) % Immature Cells Send Out Note (.) Platelet Morphology Comment H (.) RBC Morphology Comment H (.) Peripher Smr Path Cons Comment (.) Smear Path Review Comment (.) Hematology Comments Note: (.) Sodium 134 L (140-148) mmol/L Potassium 4.2 (3.6-5.2) mmol/L Chloride 99 L (100-108) mmol/L Carbon Dioxide 24 (21-32) mmol/L Anion Gap 15.2 H (5.0-14.0) mmol/L BUN 7 (7-18) mg/dL Creatinine 0.8 (0.8-1.3) mg/dL Est Cr Clr Drug Dosing 85.86 mL/min Estimated GFR (MDRD) > 60 (>60) Glucose 90 (74-106) mg/dL Calcium 9.0 (8.5-10.1) mg/dL Magnesium 1.1 L D (1.8-2.4) mg/dL Total Bilirubin 1.2 H (0.2-1.0) mg/dL AST 92 H (15-37) U/L ALT 50 (12-78) U/L Alkaline Phosphatase 121 H (46-116) U/L Total Protein 5.2 L (6.4-8.2) g/dL Albumin 2.2 L (3.4-5.0) g/dL Globulin 3.0 (2.3-3.5) g/dL Albumin/Globulin Ratio 0.7 L (1.2-2.2) Med Orders - Current: Current Medications Albuterol (Albuterol 0.083% 2.5 Mg/3 Ml Neb Soln) 2.5 mg NEB Q4H PRN PRN Reason: Shortness Of Breath/wheezing Carvedilol (Carvedilol 12.5 Mg Tab) 12.5 mg PO BID [facility] Last Admin: 02/17/21 20:12 Dose: 12.5 mg Documented by: Cyanocobalamin (Cyanocobalamin (Vitamin B12) 1,000 Mcg Tab) 2,500 mcg PO DAILY [facility] Last Admin: 02/17/21 14:07 Dose: 2,500 mcg Documented by: Ferrous Sulfate (Ferrous Sulfate 325 Mg Tab) 325 mg PO BID [facility] Last Admin: 02/17/21 20:13 Dose: 325 mg Documented by: Folic Acid (Folic Acid 1 Mg Tab) 0.5 mg PO DAILY [facility] Last Admin: 02/17/21 13:59 Dose: 0.5 mg Documented by: Furosemide (Furosemide 40 Mg Tab) 40 mg PO DAILY [facility] Last Admin: 02/17/21 14:07 Dose: 40 mg Documented by: Gabapentin (Gabapentin 100 Mg Cap) 200 mg PO Q8H [facility] Stop: 02/20/21 14:01 Last Admin: 02/18/21 05:48 Dose: 200 mg Documented by: Magnesium Sulfate (Magnesium Sulfate In Water 2 Gm/50 Ml) 2 gm in 50 mls @ 25 mls/hr IV Q6H [facility] Stop: 02/19/21 05:59 Lorazepam (Lorazepam 1 Mg Tab) 0 mg PO ASDIRECTED PRN; Protocol PRN Reason: ALCOHOL WITHDRAWAL Last Admin: 02/18/21 07:52 Dose: 1 mg Documented by: Lorazepam (Lorazepam 2 Mg/Ml Sdv) 0 mg IV ASDIRECTED PRN; Protocol PRN Reason: ALCOHOL WITHDRAWAL Last Admin: 02/16/21 19:33 Dose: 2 mg Documented by: Magnesium Oxide (Magnesium Oxide 400 Mg Tab) 400 mg PO BID [facility] Last Admin: 02/17/21 20:13 Dose: 400 mg Documented by: Ondansetron HCl (Ondansetron 4 Mg/2 Ml Sdv) 4 mg IV Q4H PRN PRN Reason: Nausea/Vomiting Pantoprazole Sodium (Pantoprazole 40 Mg Tab.Cr) 40 mg PO BIDAC [facility] Last Admin: 02/18/21 07:52 Dose: 40 mg Documented by: Polyethylene Glycol (Polyethylene Glycol 3350 Powder 17 Gm Packet) 17 gm PO DA [facility] PRN PRN Reason: Constipation Sodium Chloride (Sodium Chloride 0.9% 10 Ml Syringe) 10 ml FLUSH ASDIRECTED PRN PRN Reason: Keep Vein Open Thiamine HCl (Thiamine 100 Mg Tab) 100 mg PO DAILY [facility] Last Admin: 02/17/21 14:07 Dose: 100 mg Documented by: Discontinued Medications Gabapentin (Gabapentin 400 Mg Cap) 400 mg PO Q8H [facility] Stop: 02/16/21 06:01 Last Admin: 02/16/21 05:41 Dose: 400 mg Documented by: Sodium Chloride (Normal Saline) 1,000 mls @ 125 mls/hr IV ASDIRECTED [facility] Last Admin: 02/13/21 08:55 Dose: 125 mls/hr Documented by: Multivitamins/Minerals 10 ml/Thiamine HCl 100 mg/ Folic Acid 1 mg/ Magnesium Sulfate 2 gm/ Sodium Chloride 1,015.2 mls @ 100 mls/hr IV ONETIME ONE Stop: 02/13/21 00:39 Last Admin: 02/12/21 15:00 Dose: 100 mls/hr Documented by: Magnesium Sulfate (Magnesium Sulfate In Water 2 Gm/50 Ml) 2 gm in 50 mls @ 25 mls/hr IV Q6H [facility] Stop: 02/13/21 16:59 Last Admin: 02/13/21 14:22 Dose: 25 mls/hr Documented by: Magnesium Sulfate (Magnesium Sulfate In Water 2 Gm/50 Ml) 2 gm in 50 mls @ 12.5 mls/hr IV Q6H [facility] Stop: 02/14/21 23:59 Last Admin: 02/14/21 19:27 Dose: 12.5 mls/hr Documented by: Sodium Chloride (Normal Saline) 1,000 mls @ 100 mls/hr IV ASDIRECTED [facility] Last Admin: 02/16/21 04:19 Dose: 100 mls/hr Documented by: Sodium Chloride (Normal Saline) 500 mls @ 500 mls/hr IV ONETIME ONE Stop: 02/15/21 22:19 Last Admin: 02/15/21 21:36 Dose: 500 mls/hr Documented by: Sodium Chloride (Normal Saline) 1,000 mls @ 50 mls/hr IV ASDIRECTED [facility] Last Admin: 02/17/21 09:55 Dose: 50 mls/hr Documented by: Losartan Potassium (Losartan 25 Mg Tab) 25 mg PO DAILY [facility] Last Admin: 02/15/21 08:13 Dose: 25 mg Documented by: Potassium Chloride (Potassium Chloride 20 Meq Tab.Er) 40 meq PO ONETIME ONE Stop: 02/13/21 08:16 Last Admin: 02/13/21 08:41 Dose: 40 meq Documented by: Potassium Chloride (Potassium Chloride 20 Meq Tab.Er) 40 meq PO ONETIME ONE Stop: 02/15/21 08:16 Last Admin: 02/15/21 09:14 Dose: 40 meq Documented by: Sodium Chloride (Sodium Chloride 0.9% 10 Ml Syringe) 10 ml FLUSH ASDIRECTED PRN PRN Reason: Keep Vein Open Last Admin: 02/12/21 12:12 Dose: 10 ml Documented by: - Exam Quality Assessment: No: Supplemental Oxygen General: Alert, Cooperative, No Acute Distress Lungs: Normal Respiratory Effort. No: Wheezing Cardiovascular: Regular Rate, Regular Rhythm GI/Abdominal Exam: Soft, No Distention Extremities: Pedal Edema (mild bilateral ankle edema). No: Increased Warmth Skin: Warm, Dry Psy/Mental Status: Alert. No: Agitated - Patient Data Lab Results Last 24 hrs: Laboratory Results - last 24 hr 02/13/21 02/18/21 02/18/21 Range/Units 17:48 04:40 04:40 WBC 3.3 L (4.5-11.0) K/uL WBC (Send Out) 3.1 L (3.4-10.8) x10E3/uL RBC 2.30 L (4.30-5.90) M/uL RBC (Send Out) 2.29 L (4.14-5.80) x10E6/uL Hgb 8.3 L (12.0-15.0) g/dL Hgb (Send Out) 8.5 L (13.0-17.7) g/dL Hct 24.7 L (40.0-54.0) % Hct (Send Out) 24.3 L (37.5-51.0) % MCV 107 H (80-98) fL MCV (Send Out) 106 H (79-97) fL MCH 36 H (27-31) pg MCH (Send Out) 37.1 H (26.6-33.0) pg MCHC 34 (32-36) % MCHC (Send Out) 35.0 (31.5-35.7) g/dL Red Cell Dist (Send Out) 15.2 (11.6-15.4) % Plt Count 104 L (150-400) K/uL Plt Count (Send Out) 50 L (150-450) x10E3/uL Diff Scan Comment (.) Immature Gran % TNP Neutrophils % Send Out 79 (Not Estab.) % Band Neutrophils % TNP Lymphocytes % (Send Out) 8 (Not Estab.) % Monocytes % (Send Out) 11 (Not Estab.) % Eosinophils % Send Out 0 (Not Estab.) % Basophils % (Send Out) 0 (Not Estab.) % Metamyelocytes % TNP Myelocytes % 2 H (0 - 0) % Promyelocytes % TNP Blast Cells % TNP Megakaryocytes % TNP Other Cells % TNP Immature Gran # TNP Neutrophils # (Send Out) 2.4 (1.4-7.0) x10E3/uL Lymphocytes # (Send Out) 0.2 L (0.7-3.1) x10E3/uL Monocytes #(Send Out) 0.3 (0.1-0.9) x10E3/uL Eosinophils # Send Out 0.0 (0.0-0.4) x10E3/uL Basophils # (Send Out) 0.0 (0.0-0.2) x10E3/uL Nucleated RBCs Send Out 1 H (0 - 0) % Immature Cells Send Out Note (.) Platelet Morphology Comment H (.) RBC Morphology Comment H (.) Peripher Smr Path Cons Comment (.) Smear Path Review Comment (.) Hematology Comments Note: (.) Sodium 134 L (140-148) mmol/L Potassium 4.2 (3.6-5.2) mmol/L Chloride 99 L (100-108) mmol/L Carbon Dioxide 24 (21-32) mmol/L Anion Gap 15.2 H (5.0-14.0) mmol/L BUN 7 (7-18) mg/dL Creatinine 0.8 (0.8-1.3) mg/dL Est Cr Clr Drug Dosing 85.86 mL/min Estimated GFR (MDRD) > 60 (>60) Glucose 90 (74-106) mg/dL Calcium 9.0 (8.5-10.1) mg/dL Magnesium 1.1 L D (1.8-2.4) mg/dL Total Bilirubin 1.2 H (0.2-1.0) mg/dL AST 92 H (15-37) U/L ALT 50 (12-78) U/L Alkaline Phosphatase 121 H (46-116) U/L Total Protein 5.2 L (6.4-8.2) g/dL Albumin 2.2 L (3.4-5.0) g/dL Globulin 3.0 (2.3-3.5) g/dL Albumin/Globulin Ratio 0.7 L (1.2-2.2) Result Diagrams: 02/18/21 04:40 02/18/21 04:40 Sepsis Event Note - Evaluation Sepsis Screening Result: No Definite Risk - Focused Exam Vital Signs: Vital Signs Temp Pulse Resp BP Pulse Ox 02/18/21 07:54 36.8 C 89 14 125/76 99 02/18/21 06:00 10 L 125/77 100 02/18/21 05:00 36.9 C 13 122/86 100 02/18/21 04:00 16 119/77 100 02/18/21 03:00 36.5 C 13 120/60 100 02/18/21 02:00 15 106/54 L 100 02/18/21 01:00 16 128/72 100 02/18/21 00:00 17 125/68 94 L 02/17/21 23:00 15 114/62 96 02/17/21 22:00 10 L 123/65 97 - Problem List Review Problem List Initiated/Reviewed/Updated: Yes - My Orders Last 24 Hours: My Active Orders 02/17/21 17:19 Convert IV to Saline Lock [OM.PC] Routine 02/18/21 10:00 Magnesium Sulfate/Water [Magnesium Sulfate in Water 2 GM/50 ML] 2 gm in 50 ml IV Q6H 02/19/21 05:00 CBC W/O DIFF,HEMOGRAM [HEME] Timed (1) COMPREHENSIVE METABOLIC PN,CMP [CHEM] Timed - Plan Plan:: ASSESSMENT AND PLAN - ALCOHOL WITHDRAWAL DELIRIUM-alcohol withdrawal seems to be coming down. He is requiring less lorazepam and hopefully is near the end. 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 Laboratory studies slowly improving. -Reassess labs in a.m. CHRONIC KIDNEY DISEASE STAGE III-renal function has improved with hydration. -Closely monitor urine output and renal function CONGESTIVE HEART FAILURE-status post defibrillator placement. Echocardiogram shows severely decreased left ventricular systolic function, grade 2 diastolic dysfunction, and severe mitral regurgitation. Volume status stable. -Continue outpatient medical therapy PANCYTOPENIA-hemoglobin has remained stable following transfusion of 1 unit of red blood cells. Likely secondary to chronic disease and longstanding alcohol use -Reassess hemoglobin in a.m. GENERALIZED WEAKNESS-progressive over the past few weeks, no focal neurologic findings. Probably related to chronic alcohol use and systolic heart failure. -Physical therapy MAINTENANCE ISSUES -DVT prophylaxis; SCUDs, not a candidate for anticoagulation because of thrombocytopenia -GI prophylaxis; continue outpatient PPI therapy -Paez catheter; not indicated -Nutrition; 2 g sodium diet DISPOSITION-anticipate discharge to [facility]-way for subacute rehab after the hospital stay, should be ready in 1 or maybe 2 days. Bruce Alexis MD
[2021-02-18] MEDS: Carvedilol 12.5 MG Tab PO SCH ×2 (09:22→20:46)
[2021-02-18] MEDS: Furosemide 40 MG Tab PO SCH (09:23)
[2021-02-18] MEDS: Cyanocobalamin (Vitamin B12) 1,000 MCG Tab PO SCH (09:24)
[2021-02-18] MEDS: Ferrous Sulfate 325 MG Tab PO SCH ×2 (09:25→20:46)
[2021-02-18] MEDS: Thiamine 100 MG Tab PO SCH (09:25)
[2021-02-18] MEDS: Folic Acid 1 MG Tab PO SCH (09:26)
[2021-02-18] MEDS: Magnesium Oxide 400 MG Tab PO SCH (10:26)
[2021-02-18] MEDS: Magnesium Sulfate/Water 2 GM/50 ML BAG IV SCH ×3 (10:36→21:57)
[2021-02-19] MEDS: Gabapentin 100 MG Cap PO SCH ×3 (05:57→21:01)
[2021-02-19] MEDS: Magnesium Sulfate/Water 2 GM/50 ML BAG IV SCH (06:11)
[2021-02-19] MEDS: Pantoprazole 40 MG Tab.CR PO SCH ×2 (07:14→15:29)
[2021-02-19] MEDS: Carvedilol 12.5 MG Tab PO SCH ×2 (08:41→21:00)
[2021-02-19] MEDS: Furosemide 40 MG Tab PO SCH (08:42)
[2021-02-19] MEDS: Thiamine 100 MG Tab PO SCH (08:43)
[2021-02-19] MEDS: Cyanocobalamin (Vitamin B12) 1,000 MCG Tab PO SCH (08:43)
[2021-02-19] MEDS: Folic Acid 1 MG Tab PO SCH (08:44)
[2021-02-19] MEDS: Ferrous Sulfate 325 MG Tab PO SCH ×2 (08:46→21:00)
--- NOTE | 2021-02-19 10:11 | PCM.PN ---
- General Info Date of Service: 02/19/21 Subjective Update: There were no acute events overnight. Patient has been stable and has not required any lorazepam. No complaints of headache, nausea or abdominal pain. He had a bowel movement this morning. He remains quite weak and requires assistance to get into and out of bed. He has not worked with physical therapy yet today. Laboratory studies continue to improve. - Patient Data Vitals - Most Recent: Last Vital Signs Temp 36.6 C 02/19/21 07:16 Pulse 83 02/19/21 09:01 Resp 14 02/19/21 09:01 BP 124/78 02/19/21 09:01 Pulse Ox 100 02/19/21 09:01 Weight - Most Recent: 75.841 kg I&O - Last 24 Hours: Intake & Output 02/18/21 02/19/21 02/19/21 22:59 06:59 14:59 Intake Total 100 1050 Output Total 350 Balance -250 1050 Lab Results Last 24 Hours: Laboratory Results - last 24 hr 02/19/21 02/19/21 Range/Units 04:15 04:15 WBC 3.0 L (4.5-11.0) K/uL RBC 2.45 L (4.30-5.90) M/uL Hgb 8.6 L (12.0-15.0) g/dL Hct 26.1 L (40.0-54.0) % MCV 107 H (80-98) fL MCH 35 H (27-31) pg MCHC 33 (32-36) % Plt Count 115 L (150-400) K/uL Sodium 135 L (140-148) mmol/L Potassium 3.8 (3.6-5.2) mmol/L Chloride 100 (100-108) mmol/L Carbon Dioxide 25 (21-32) mmol/L Anion Gap 13.8 (5.0-14.0) mmol/L BUN 8 (7-18) mg/dL Creatinine 0.8 (0.8-1.3) mg/dL Est Cr Clr Drug Dosing 85.86 mL/min Estimated GFR (MDRD) > 60 (>60) Glucose 107 H (74-106) mg/dL Calcium 9.3 (8.5-10.1) mg/dL Total Bilirubin 1.2 H (0.2-1.0) mg/dL AST 66 H (15-37) U/L ALT 45 (12-78) U/L Alkaline Phosphatase 123 H (46-116) U/L Total Protein 5.3 L (6.4-8.2) g/dL Albumin 2.3 L (3.4-5.0) g/dL Globulin 3.0 (2.3-3.5) g/dL Albumin/Globulin Ratio 0.8 L (1.2-2.2) Med Orders - Current: Current Medications Albuterol (Albuterol 0.083% 2.5 Mg/3 Ml Neb Soln) 2.5 mg NEB Q4H PRN PRN Reason: Shortness Of Breath/wheezing Carvedilol (Carvedilol 12.5 Mg Tab) 12.5 mg PO BID [facility] Last Admin: 02/19/21 08:41 Dose: 12.5 mg Documented by: Cyanocobalamin (Cyanocobalamin (Vitamin B12) 1,000 Mcg Tab) 2,500 mcg PO DAILY [facility] Last Admin: 02/19/21 08:43 Dose: 2,500 mcg Documented by: Ferrous Sulfate (Ferrous Sulfate 325 Mg Tab) 325 mg PO BID [facility] Last Admin: 02/19/21 08:46 Dose: 325 mg Documented by: Folic Acid (Folic Acid 1 Mg Tab) 0.5 mg PO DAILY [facility] Last Admin: 02/19/21 08:44 Dose: 0.5 mg Documented by: Furosemide (Furosemide 40 Mg Tab) 40 mg PO DAILY [facility] Last Admin: 02/19/21 08:42 Dose: 40 mg Documented by: Gabapentin (Gabapentin 100 Mg Cap) 200 mg PO Q8H [facility] Stop: 02/20/21 14:01 Last Admin: 02/19/21 05:57 Dose: 200 mg Documented by: Magnesium Oxide (Magnesium Oxide 400 Mg Tab) 400 mg PO BID [facility] Last Admin: 02/18/21 10:26 Dose: Not Given Documented by: Ondansetron HCl (Ondansetron 4 Mg/2 Ml Sdv) 4 mg IV Q4H PRN PRN Reason: Nausea/Vomiting Pantoprazole Sodium (Pantop[facility]ole 40 Mg Tab.Cr) [facility] Last Admin: 02/19/21 07:14 Dose: 40 mg Documented by: Polyethylene Glycol (Polyethylene Glycol 3350 Powder 17 Gm Packet) 17 gm PO DAILY PRN PRN Reason: Constipation Thiamine HCl (Thiamine 100 Mg Tab) 100 mg PO DAILY [facility] Last Admin: 02/19/21 08:43 Dose: 100 mg Documented by: Discontinued Medications Gabapentin (Gabapentin 400 Mg Cap) 400 mg PO Q8H [facility] Stop: 02/16/21 06:01 Last Admin: 02/16/21 05:41 Dose: 400 mg Documented by: Sodium Chloride (Normal Saline) 1,000 mls @ 125 mls/hr IV ASDIRECTED [facility] Last Admin: 02/13/21 08:55 Dose: 125 mls/hr Documented by: Multivitamins/Minerals 10 ml/Thiamine HCl 100 mg/ Folic Acid 1 mg/ Magnesium Sulfate 2 gm/ Sodium Chloride 1,015.2 mls @ 100 mls/hr IV ONETIME ONE Stop: 02/13/21 00:39 Last Admin: 02/12/21 15:00 Dose: 100 mls/hr Documented by: Magnesium Sulfate (Magnesium Sulfate In Water 2 Gm/50 Ml) 2 gm in 50 mls @ 25 mls/hr IV Q6H [facility] Stop: 02/13/21 16:59 Last Admin: 02/13/21 14:22 Dose: 25 mls/hr Documented by: Magnesium Sulfate (Magnesium Sulfate In Water 2 Gm/50 Ml) 2 gm in 50 mls @ 12.5 mls/hr IV Q6H [facility] Stop: 02/14/21 23:59 Last Admin: 02/14/21 19:27 Dose: 12.5 mls/hr Documented by: Sodium Chloride (Normal Saline) 1,000 mls @ 100 mls/hr IV ASDIRECTED [facility] Last Admin: 02/16/21 04:19 Dose: 100 mls/hr Documented by: Sodium Chloride (Normal Saline) 500 mls @ 500 mls/hr IV ONETIME ONE Stop: 02/15/21 22:19 Last Admin: 02/15/21 21:36 Dose: 500 mls/hr Documented by: Sodium Chloride (Normal Saline) 1,000 mls @ 50 mls/hr IV ASDIRECTED [facility] Last Admin: 02/17/21 09:55 Dose: 50 mls/hr Documented by: Magnesium Sulfate (Magnesium Sulfate In Water 2 Gm/50 Ml) 2 gm in 50 mls @ 25 mls/hr IV Q6H [facility] Stop: 02/19/21 05:59 Last Admin: 02/19/21 06:11 Dose: Not Given Documented by: Lorazepam (Lorazepam 1 Mg Tab) 0 mg PO ASDIRECTED PRN; Protocol PRN Reason: ALCOHOL WITHDRAWAL Last Admin: 02/18/21 07:52 Dose: 1 mg Documented by: Lorazepam (Lorazepam 2 Mg/Ml Sdv) 0 mg IV ASDIRECTED PRN; Protocol PRN Reason: ALCOHOL WITHDRAWAL Last Admin: 02/16/21 19:33 Dose: 2 mg Documented by: Losartan Potassium (Losartan 25 Mg Tab) 25 mg PO DAILY [facility] Last Admin: 02/15/21 08:13 Dose: 25 mg Documented by: Potassium Chloride (Potassium Chloride 20 Meq Tab.Er) 40 meq PO ONETIME ONE Stop: 02/13/21 08:16 Last Admin: 02/13/21 08:41 Dose: 40 meq Documented by: Potassium Chloride (Potassium Chloride 20 Meq Tab.Er) 40 meq PO ONETIME ONE Stop: 02/15/21 08:16 Last Admin: 02/15/21 09:14 Dose: 40 meq Documented by: Sodium Chloride (Sodium Chloride 0.9% 10 Ml Syringe) 10 ml FLUSH ASDIRECTED PRN PRN Reason: Keep Vein Open Last Admin: 02/12/21 12:12 Dose: 10 ml Documented by: Sodium Chloride (Sodium Chloride 0.9% 10 Ml Syringe) 10 ml FLUSH ASDIRECTED PRN PRN Reason: Keep Vein Open - Exam Quality Assessment: No: Supplemental Oxygen General: Alert, Oriented, Cooperative, No Acute Distress Lungs: Normal Respiratory Effort GI/Abdominal Exam: Soft, No Distention Extremities: Pedal Edema (Mild bilateral ankle edema) Psy/Mental Status: Alert, Normal Affect - Patient Data Lab Results Last 24 hrs: Laboratory Results - last 24 hr 02/19/21 02/19/21 Range/Units 04:15 04:15 WBC 3.0 L (4.5-11.0) K/uL RBC 2.45 L (4.30-5.90) M/uL Hgb 8.6 L (12.0-15.0) g/dL Hct 26.1 L (40.0-54.0) % MCV 107 H (80-98) fL MCH 35 H (27-31) pg MCHC 33 (32-36) % Plt Count 115 L (150-400) K/uL Sodium 135 L (140-148) mmol/L Potassium 3.8 (3.6-5.2) mmol/L Chloride 100 (100-108) mmol/L Carbon Dioxide 25 (21-32) mmol/L Anion Gap 13.8 (5.0-14.0) mmol/L BUN 8 (7-18) mg/dL Creatinine 0.8 (0.8-1.3) mg/dL Est Cr Clr Drug Dosing 85.86 mL/min Estimated GFR (MDRD) > 60 (>60) Glucose 107 H (74-106) mg/dL Calcium 9.3 (8.5-10.1) mg/dL Total Bilirubin 1.2 H (0.2-1.0) mg/dL AST 66 H (15-37) U/L ALT 45 (12-78) U/L Alkaline Phosphatase 123 H (46-116) U/L Total Protein 5.3 L (6.4-8.2) g/dL Albumin 2.3 L (3.4-5.0) g/dL Globulin 3.0 (2.3-3.5) g/dL Albumin/Globulin Ratio 0.8 L (1.2-2.2) Result Diagrams: 02/19/21 04:15 02/19/21 04:15 Sepsis Event Note - Evaluation Sepsis Screening Result: No Definite Risk - Focused Exam Vital Signs: Vital Signs Temp Pulse Pulse Resp BP BP Pulse Ox 02/19/21 09:01 83 14 124/78 100 02/19/21 08:41 83 124/78 02/19/21 07:16 36.6 C 81 14 120/79 97 02/19/21 05:50 36.9 C 16 123/73 96 02/19/21 01:30 91 14 119/70 98 - Problem List Review Problem List Initiated/Reviewed/Updated: Yes - My Orders Last 24 Hours: My Active Orders 02/19/21 08:48 Consult to Occupational Therapy [OT Evaluation and Treatment] [CONS] Routine 02/19/21 09:47 Transfer Patient (Change bed) [ADT] Routine 02/19/21 09:48 PT Evaluation and Treatment [CONS] Routine - Plan Plan:: ASSESSMENT AND PLAN - ALCOHOL WITHDRAWAL DELIRIUM-alcohol withdrawal seems to have resolved. No lorazepam requirement in the last 24 hours. Weak but otherwise doing well. 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 Laboratory studies slowly improving. CHRONIC KIDNEY DISEASE STAGE III-renal function has improved with hydration. CONGESTIVE HEART FAILURE-status post defibrillator placement. Echocardiogram shows severely decreased left ventricular systolic function, grade 2 diastolic dysfunction, and severe mitral regurgitation. Volume status appropriate. -Continue outpatient medical therapy PANCYTOPENIA-Likely secondary to chronic disease and longstanding alcohol use. GENERALIZED WEAKNESS-progressive over the past few weeks, no focal neurologic findings. Probably related to chronic alcohol use and systolic heart failure. -Physical therapy MAINTENANCE ISSUES -DVT prophylaxis; SCUDs, not a candidate for anticoagulation because of thrombocytopenia -GI prophylaxis; continue outpatient PPI therapy -Nutrition; 2 g sodium diet DISPOSITION-anticipate discharge to [facility] for [facility]acute rehab after the hospital stay, he is ready for discharge when a bed is available. Bruce Alexis MD
[2021-02-19] MEDS ORDERED: Dimethicone 20%/Zinc Oxide 25% 56 GM Spray Bottle TOP PRN (13:29)
[2021-02-20] MEDS: Gabapentin 100 MG Cap PO SCH (05:22)
[2021-02-20 08:11] VITALS: PULSE 83
[2021-02-20] MEDS: Furosemide 40 MG Tab PO SCH (08:11)
[2021-02-20] MEDS: Folic Acid 1 MG Tab PO SCH (08:11)
[2021-02-20] MEDS: Thiamine 100 MG Tab PO SCH (08:12)
[2021-02-20] MEDS: Cyanocobalamin (Vitamin B12) 1,000 MCG Tab PO SCH (08:12)
[2021-02-20] MEDS: Ferrous Sulfate 325 MG Tab PO SCH (08:13)
[2021-02-20] MEDS: Pantoprazole 40 MG Tab.CR PO SCH (08:13)
[2021-02-20] MEDS: Carvedilol 12.5 MG Tab PO SCH (08:14)
[2021-02-20 08:15] VITALS: BP 104/67
--- NOTE | 2021-02-20 09:34 | PCM.DCSUM1 ---
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 He was admitted for management of weakness. Diagnosis: Stroke: No - Discharge Data Discharge Date: 02/20/21 Discharge Disposition: DC/Tfer to SNF 03 Condition: Fair - Referral to Home Health Primary Care Physician: David Rose MD - Discharge Diagnosis/Problem(s) (1) Alcohol withdrawal delirium, acute, hypoactive SNOMED Code(s): 5466715, 60743682, [id number] ICD Code: F10.231 - ALCOHOL DEPENDENCE WITH WITHDRAWAL DELIRIUM Status: Acute Current Visit: Yes (2) Alcoholic hepatitis without ascites SNOMED Code(s): 399089822 ICD Code: K70.10 - ALCOHOLIC HEPATITIS WITHOUT ASCITES Status: Acute Current Visit: Yes (3) Pancytopenia, acquired SNOMED Code(s): 7357295 ICD Code: D61.818 - OTHER PANCYTOPENIA Status: Acute Current Visit: Yes Problem Details: 2/2 chronic alcohol use (4) Weakness SNOMED Code(s): 87808979 ICD Code: R53.1 - WEAKNESS Status: Acute Current Visit: Yes (5) Congestive heart failure SNOMED Code(s): 81589775 ICD Code: I50.9 - HEART FAILURE, UNSPECIFIED Status: Chronic Current Visit: No Qualifiers: Heart failure type: combined systolic and diastolic Heart failure chronicity: acute on chronic Qualified Code(s): I50.43 - Acute on chronic combined systolic (congestive) and diastolic (congestive) heart failure - Patient Summary/Data Consults: Consultations 02/19/21 08:48 Consult to Occupational Therapy [OT Evaluation and Treatment] [CONS] Routine Please Evaluate and Treat. OT Reason for Consult: ADL's Pending Discharge: Yes This query below is only for informational purposes and is not editable. Admission Diagnosis/Problem: Weakness 02/19/21 09:48 PT Evaluation and Treatment [CONS] Routine Please Evaluate and Treat. PT Reason for Consult: Strengthening This query below is only for informational purposes and is not editable. Admission Diagnosis/Problem: Weakness Hospital Course: Arjun presented to the emergency room with 2 weeks of progressive weakness and frequent falls. Work-up in the emergency room revealed pancytopenia probably related to his chronic alcohol use as well as mild alcoholic hepatitis. He was very weak and not safe for outpatient management so he was admitted for further management. He received some IV fluid hydration overnight following admission and the next morning his hemoglobin was 6.9 so he did receive 1 unit of blood via transfusion. His hepatic panel numbers did increase slightly over the first couple of days but then have trended towards improvement. Unfortunately the patient went into alcohol withdrawal during the early portion of the hospital stay. He was transferred to the intensive care unit and started on the management protocol with lorazepam as well as gabapentin and melatonin. Over the next 3 days he had a hypoactive delirium that did slowly resolve. The lorazepam has been discontinued and he has not required any for more than 48 hours. His alcohol withdrawal has resolved. His alcoholic hepatitis has improved significantly but his numbers have not quite normalized. He does not have any pain or nausea. His vital signs have all been stable. His congestive heart failure has remained compensated. His electrolytes have been optimized. He does continue to have pancytopenia related to bone marrow suppression from his alcohol most likely. His platelet level is improving. His hemoglobin level has been stable. He does remain quite weak and would benefit from subacute rehab. His goal is to return home. Plan is for him to go to the senior living for subacute rehab for short while. He is stable and safe for discharge at this time. - Patient Instructions Diet: Low Sodium Activity: As Tolerated Showering/Bathing: May Shower Other/Special Instructions: 1. You were in the hospital for management of alcohol withdrawal delirium that occurred in the setting of alcohol dependence. This was complicated by mild alcoholic hepatitis. You have completed alcohol withdrawal. Your alcoholic hepatitis is improving. I strongly encourage complete alcohol cessation. Ongoing alcohol use could lead to further liver injury and potentially liver failure and . I recommend supplementing your diet with a daily multivitamin as well as thiamine and folate as outlined in the medication section. 2. Continue your usual home medications as previously prescribed. 3. Referral to physical and occupational therapy for strengthening in the setting of acute on chronic weakness with chronic alcohol use and alcohol withdrawal delirium. 4. Code status - FULL CODE - Discharge Plan Prescriptions/Med Rec: Acetaminophen 650 mg PO Q4H PRN #200 tablet PRN Reason: Pain/Fever Dimethicone/Zinc Oxide [Rash Relief-Zinc Oxide] 1 gm TOP Q4H PRN #1 bottle PRN Reason: Rash Home Medications: Home Meds Omeprazole 20 mg PO BID 07/29/17 [History] carvediloL [Carvedilol] 12.5 mg PO BID 07/29/17 [History] traZODone HCl [Trazodone HCl] 200 mg PO BEDTIME 07/29/17 [History] Calcium Carbonate/Vitamin D3 [Calcium 600 + Vit D Tablet] 1 tab PO TID 06/07/19 [History] Cholecalciferol (Vitamin D3) [Vitamin D3] 1,000 unit PO DAILY 06/07/19 [History] Cyanocobalamin (Vitamin B-12) [Vitamin B12] 2,500 mcg PO DAILY 06/07/19 [Hist ory] Furosemide 1 tab PO DAILY 06/07/19 [History] Gabapentin [Neurontin] 600 mg PO BEDTIME 06/07/19 [History] Iron Polysaccharide Complex [Ferric X-150] 150 mg PO DAILY 06/07/19 [History] Multivitamin [Multivitamins] 1 tab PO DAILY 06/07/19 [History] Thiamine [Vitamin B-1] 100 mg PO DAILY 06/07/19 [History] Vitamin E 100 unit PO DAILY 06/07/19 [History] busPIRone HCl [Buspirone HCl] 10 mg PO TID 06/07/19 [History] Folic Acid 0.4 mg PO DAILY 02/12/21 [History] Losartan [Cozaar] 25 mg PO DAILY 02/12/21 [History] Acetaminophen 650 mg PO Q4H PRN #200 tablet 02/19/21 [Rx] Dimethicone/Zinc Oxide [Rash Relief-Zinc Oxide] 1 gm TOP Q4H PRN #1 bottle 02/19/21 [Rx] Patient Handouts: Alcohol Abuse and Dependence Information, Adult Referrals: PCP,None [Ordering Only Provider] - (f/u with your primary care provider 1-2 weeks after senior living discharge ) - Discharge Summary/Plan Comment DC Time >30 min.: Yes (35-new [facility] discharge ) - Patient Data Vitals - Most Recent: Last Vital Signs Temp 35 C L 02/20/21 07:00 Pulse 83 02/20/21 08:14 Resp 16 02/20/21 07:00 BP 104/67 02/20/21 08:14 Pulse Ox 96 02/20/21 07:00 Weight - Most Recent: 75.841 kg I&O - Last 24 hours: Intake & Output 02/19/21 02/20/21 02/20/21 22:59 06:59 14:59 Intake Total 1280 320 Output Total 50 300 Balance 1230 20 Med Orders - Current: Current Medications Albuterol (Albuterol 0.083% 2.5 Mg/3 Ml Neb Soln) 2.5 mg NEB Q4H PRN PRN Reason: Shortness Of Breath/wheezing Carvedilol (Carvedilol 12.5 Mg Tab) 12.5 mg PO BID [facility] Last Admin: 02/20/21 08:14 Dose: 12.5 mg Documented by: Cyanocobalamin (Cyanocobalamin (Vitamin B12) 1,000 Mcg Tab) 2,500 mcg PO DAILY [facility] Last Admin: 02/20/21 08:12 Dose: 2,500 mcg Documented by: Dimethicone/Zinc Oxide (Dimethicone 20%/Zinc Oxide 25% 56 Gm [place] Bottle) 0 gm TOP Q2H PRN PRN Reason: Rash Last Admin: 02/19/21 15:15 Dose: 1 spray Documented by: Ferrous Sulfate (Ferrous Sulfate 325 Mg Tab) 325 mg PO BID [facility] Last Admin: 02/20/21 08:13 Dose: 325 mg Documented by: Folic Acid (Folic Acid 1 Mg Tab) 0.5 mg PO DAILY [facility] Last Admin: 02/20/21 08:11 Dose: 0.5 mg Documented by: Furosemide (Furosemide 40 Mg Tab) 40 mg PO DAILY [facility] Last Admin: 02/20/21 08:11 Dose: 40 mg Documented by: Gabapentin (Gabapentin 100 Mg Cap) 200 mg PO Q8H [facility] Stop: 02/20/21 14:01 Last Admin: 02/20/21 05:22 Dose: 200 mg Documented by: Magnesium Oxide (Magnesium Oxide 400 Mg Tab) 400 mg PO BID [facility] Last Admin: 02/18/21 10:26 Dose: Not Given Documented by: Ondansetron HCl (Ondansetron 4 Mg/2 Ml Sdv) 4 mg IV Q4H PRN PRN Reason: Nausea/Vomiting Pantoprazole Sodium (Pant[facility]razole 40 Mg Tab.Cr) [facility] Last Admin: 02/20/21 08:13 Dose: 40 mg Documented by: Polyethylene Glycol (Polyethylene Glycol 3350 Powder 17 Gm Packet) 17 gm PO DAILY PRN PRN Reason: Constipation Thiamine HCl (Thiamine 100 Mg Tab) 100 mg PO DAILY [facility] Last Admin: 02/20/21 08:12 Dose: 100 mg Documented by: Discontinued Medications Gabapentin (Gabapentin 400 Mg Cap) 400 mg PO Q8H [facility] Stop: 02/16/21 06:01 Last Admin: 02/16/21 05:41 Dose: 400 mg Documented by: Sodium Chloride (Normal Saline) 1,000 mls @ 125 mls/hr IV ASDIRECTED [facility] Last Admin: 02/13/21 08:55 Dose: 125 mls/hr Documented by: Multivitamins/Minerals 10 ml/Thiamine HCl 100 mg/ Folic Acid 1 mg/ Magnesium Sulfate 2 gm/ Sodium Chloride 1,015.2 mls @ 100 mls/hr IV ONETIME ONE Stop: 02/13/21 00:39 Last Admin: 02/12/21 15:00 Dose: 100 mls/hr Documented by: Magnesium Sulfate (Magnesium Sulfate In Water 2 Gm/50 Ml) 2 gm in 50 mls @ 25 mls/hr IV Q6H [facility] Stop: 02/13/21 16:59 Last Admin: 02/13/21 14:22 Dose: 25 mls/hr Documented by: Magnesium Sulfate (Magnesium Sulfate In Water 2 Gm/50 Ml) 2 gm in 50 mls @ 12.5 mls/hr IV Q6H [facility] Stop: 02/14/21 23:59 Last Admin: 02/14/21 19:27 Dose: 12.5 mls/hr Documented by: Sodium Chloride (Normal Saline) 1,000 mls @ 100 mls/hr IV ASDIRECTED [facility] Last Admin: 02/16/21 04:19 Dose: 100 mls/hr Documented by: Sodium Chloride (Normal Saline) 500 mls @ 500 mls/hr IV ONETIME ONE Stop: 02/15/21 22:19 Last Admin: 02/15/21 21:36 Dose: 500 mls/hr Documented by: Sodium Chloride (Normal Saline) 1,000 mls @ 50 mls/hr IV ASDIRECTED [facility] Last Admin: 02/17/21 09:55 Dose: 50 mls/hr Documented by: Magnesium Sulfate (Magnesium Sulfate In Water 2 Gm/50 Ml) 2 gm in 50 mls @ 25 mls/hr IV Q6H [facility] Stop: 02/19/21 05:59 Last Admin: 02/19/21 06:11 Dose: Not Given Documented by: Lorazepam (Lorazepam 1 Mg Tab) 0 mg PO ASDIRECTED PRN; Protocol PRN Reason: ALCOHOL WITHDRAWAL Last Admin: 02/18/21 07:52 Dose: 1 mg Documented by: Lorazepam (Lorazepam 2 Mg/Ml Sdv) 0 mg IV ASDIRECTED PRN; Protocol PRN Reason: ALCOHOL WITHDRAWAL Last Admin: 02/16/21 19:33 Dose: 2 mg Documented by: Losartan Potassium (Losartan 25 Mg Tab) 25 mg PO DAILY [facility] Last Admin: 02/15/21 08:13 Dose: 25 mg Documented by: Potassium Chloride (Potassium Chloride 20 Meq Tab.Er) 40 meq PO ONETIME ONE Stop: 02/13/21 08:16 Last Admin: 02/13/21 08:41 Dose: 40 meq Documented by: Potassium Chloride (Potassium Chloride 20 Meq Tab.Er) 40 meq PO ONETIME ONE Stop: 02/15/21 08:16 Last Admin: 02/15/21 09:14 Dose: 40 meq Documented by: Sodium Chloride (Sodium Chloride 0.9% 10 Ml Syringe) 10 ml FLUSH ASDIRECTED PRN PRN Reason: Keep Vein Open Last Admin: 02/12/21 12:12 Dose: 10 ml Documented by: Sodium Chloride (Sodium Chloride 0.9% 10 Ml Syringe) 10 ml FLUSH ASDIRECTED PRN PRN Reason: Keep Vein Open *Q Meaningful Use (DIS) - VTE *Q VTE Pharmacological Contraindications *Q: Thrombocytopenia
== END 2021-02-20 10:05 | DRG 808 ==
LOC: JP.ED 11:18 → JP.ICU 12:33
PROVIDERS: ADMIT Hospitalist; ATTEND Internal Medicine
PROC: 30233N1 Transfusion of Nonautologous Red Blood Cells into Peripheral Vein, Percutaneous Approach (ICD-10-PCS; principal; 2021-02-13)
DX: R53.1 Weakness (principal); D64.9 Anemia, unspecified; R79.89 Other specified abnormal findings of blood chemistry; D61.818 Other pancytopenia; I50.43 Acute on chronic combined systolic (congestive) and diastolic (congestive) heart failure; F10.231 Alcohol dependence with withdrawal delirium; K70.10 Alcoholic hepatitis without ascites; N18.9 Chronic kidney disease, unspecified; H54.7 Unspecified visual loss; E66.9 Obesity, unspecified; F41.9 Anxiety disorder, unspecified; I25.10 Atherosclerotic heart disease of native coronary artery without angina pectoris; Z20.822 Contact with and (suspected) exposure to COVID-19; Z96.649 Presence of unspecified artificial hip joint; M19.90 Unspecified osteoarthritis, unspecified site; K21.9 Gastro-esophageal reflux disease without esophagitis; I34.0 Nonrheumatic mitral (valve) insufficiency; N18.30 Chronic kidney disease, stage 3 unspecified; D46.9 Myelodysplastic syndrome, unspecified; K74.60 Unspecified cirrhosis of liver; D69.6 Thrombocytopenia, unspecified; I49.9 Cardiac arrhythmia, unspecified; Z79.899 Other long term (current) drug therapy; Z95.810 Presence of automatic (implantable) cardiac defibrillator
CPT/HCPCS: 0241U; 36415; 36430; 70450; 74176; 80053; 81001; 82140; 82607; 82728; 82746; 83550; 83615; 83735; 84425; 84484; 85018; 85025; 85027; 85060; 85610; 86850; 86900; 86901; 86920; 86922; 93306; 97110-GP; 97162-GP; 97165-GO; 97530-GP; 99285; 99285-25; A9270-GY; J2060; J3411; J3475; J3490; J7030; J7040; P9016

== ENCOUNTER 2021-06-10 14:41 | Emergency (ER) | payer MEDICARE, MEDICAID ==
--- NOTE | 2021-06-10 15:39 | EDM.PDOC ---
ED HPI GENERAL MEDICAL PROBLEM - General Chief Complaint: Cardiovascular Problem Stated Complaint: LOW BLOOD PRESSURE Time Seen by Provider: 06/10/21 15:31 Source of Information: Reports: Patient, Family, RN Notes Reviewed History Limitations: Reports: No Limitations - History of Present Illness INITIAL COMMENTS - FREE TEXT/NARRATIVE: 66-year-old gentleman presents emergency department today complaint of low blood pressure, he was sent up from cardiac rehab clinic. Initially reported the clinic systolic blood pressure was 120 went to his exercise did fine and then he went from a lying position to a standing position felt lightheaded systolic blood pressure was around 60s transported the ED for further evaluation. He does take beta-abdelrahman carvedilol 12.5 mg twice a day he taken that medication just prior to going to cardiac rehab he also takes blood pressure medication of Cozaar - Related Data Allergies Allergy/AdvReac Type Severity Reaction Status Date / Time No Known Allergies Allergy Verified 06/10/21 16:22 Home Meds: Home Meds Omeprazole 20 mg PO BID 07/29/17 [History] carvediloL [Carvedilol] 12.5 mg PO BID 07/29/17 [History] traZODone HCl [Trazodone HCl] 200 mg PO BEDTIME 07/29/17 [History] Calcium Carbonate/Vitamin D3 [Calcium 600 + Vit D Tablet] 1 tab PO TID 06/07/19 [History] Cholecalciferol (Vitamin D3) [Vitamin D3] 1,000 unit PO DAILY 06/07/19 [History] Cyanocobalamin (Vitamin B-12) [Vitamin B12] 2,500 mcg PO DAILY 06/07/19 [History] Furosemide 1 tab PO DAILY 06/07/19 [History] Gabapentin [Neurontin] 600 mg PO BEDTIME 06/07/19 [History] Iron Polysaccharide Complex [Ferric X-150] 150 mg PO DAILY 06/07/19 [History] Multivitamin [Multivitamins] 1 tab PO DAILY 06/07/19 [History] Thiamine [Vitamin B-1] 100 mg PO DAILY 06/07/19 [History] Vitamin E 100 unit PO DAILY 06/07/19 [History] busPIRone HCl [Buspirone HCl] 10 mg PO TID 06/07/19 [History] Folic Acid 0.4 mg PO DAILY 02/12/21 [History] Losartan [Cozaar] 12.5 mg PO DAILY 02/12/21 [History] Acetaminophen 650 mg PO Q4H PRN #200 tablet 02/19/21 [Rx] Dimethicone/Zinc Oxide [Rash Relief-Zinc Oxide] 1 gm TOP Q4H PRN #1 bottle 02/19/21 [Rx] Magnesium 25 mg PO DAILY 06/10/21 [History] Past Medical History HEENT History: Reports: Impaired Vision Cardiovascular History: Reports: Arrhythmia, Automatic Implantable Cardioverter Defibrillators, CAD, Cardiomyopathy, Heart Failure Gastrointestinal History: Reports: GERD Genitourinary History: Reports: Chronic Renal Insuffiency Musculoskeletal History: Reports: Arthritis, Fracture Neurological History: Reports: Concussion, Seizure Psychiatric History: Reports: Anxiety Endocrine/Metabolic History: Reports: Obesity/BMI 30+ Hematologic History: Reports: Blood Transfusion(s) - Past Surgical History Cardiovascular Surgical History: Reports: AICD GI Surgical History: Reports: Colonoscopy Musculoskeletal Surgical History: Reports: Hip Replacement, Other (See Below) Other Musculoskeletal Surgeries/Procedures:: arm repair Social & Family History - Family History Family Medical History: No Pertinent Family History - Caffeine Use Caffeine Use: Reports: Tea ED ROS GENERAL - Review of Systems Review Of Systems: See Below Constitutional: Reports: No Symptoms Respiratory: Reports: No Symptoms Cardiovascular: Reports: Blood Pressure Problem, Lightheadedness GI/Abdominal: Reports: No Symptoms ED EXAM, GENERAL - Physical Exam Exam: See Below Exam Limited By: No Limitations General Appearance: Alert, WD/WN, No Apparent Distress Respiratory/Chest: No Respiratory Distress, Lungs Clear, Normal Breath Sounds, No Accessory Muscle Use, Chest Non-Tender Cardiovascular: Regular Rate, Rhythm, No Murmur GI/Abdominal: Soft, Non-Tender Course - Vital Signs Last Recorded V/S: Last Vital Signs Temp 97.2 F 06/10/21 16:22 Pulse 71 06/10/21 16:22 Resp 13 06/10/21 16:22 BP 116/76 06/10/21 16:22 Pulse Ox 94 L 06/10/21 16:22 Orthostatic Blood Pressure [ 98/65 Standing] Orthostatic Blood Pressure [ 109/78 Sitting] Orthostatic Blood Pressure [ 128/71 Supine] - Orders/Labs/Meds Labs: Laboratory Tests 06/10/21 06/10/21 06/10/21 Range/Units 15:40 15:40 15:40 WBC 3.9 L (4.5-11.0) K/uL RBC 2.48 L (4.30-5.90) M/uL Hgb 9.0 L (12.0-15.0) g/dL Hct 26.5 L (40.0-54.0) % MCV 107 H (80-98) fL MCH 36 H (27-31) pg MCHC 34 (32-36) % Plt Count 119 L (150-400) K/uL Neut % (Auto) 42.3 (36-66) % Lymph % (Auto) 22.2 L (24-44) % [place] % (Auto) 32.2 H (2-6) % Eos % (Auto) 2.3 (2-4) % Baso % (Auto) 1.0 (0-1) % Sodium 136 L (140-148) mmol/L Potassium 3.2 L (3.6-5.2) mmol/L Chloride 96 L (100-108) mmol/L Carbon Dioxide 29 (21-32) mmol/L Anion Gap 14.2 H (5.0-14.0) mmol/L BUN 32 H D (7-18) mg/dL Creatinine 1.5 H (0.8-1.3) mg/dL Est Cr Clr Drug Dosing 45.90 mL/min Estimated GFR (MDRD) 47 L (>60) Glucose 114 H (74-106) mg/dL Calcium 8.8 D (8.5-10.1) mg/dL Troponin I < 0.017 (0.000-0.056) ng/mL Departure - Departure Time of Disposition: 17:38 Disposition: Home, Self-Care 01 Condition: Fair Clinical Impression: Orthostatic hypotension Instructions: Orthostatic Hypotension Referrals: David Rose MD [Primary Care Provider] - Forms: ED Department Discharge Additional Instructions: Recommend spacing your blood pressure medications out so you not taking them at the same time especially when going to cardiac rehab, please followup with your primary care provider in 3-5 days if not better, please call return to the emergency department with worsening of symptoms. Sepsis Event Note (ED) - Focused Exam Vital Signs: Vital Signs Temp Pulse Resp BP Pulse Ox 06/10/21 16:22 97.2 F 71 13 116/76 94 L 06/10/21 16:07 71 13 116/76 94 L 06/10/21 15:44 73 91/60 06/10/21 14:55 97.2 F 63 12 92/55 L 93 L - Assessment/Plan Plan: Assessment Acuity = acute Site and laterality = orthostatic hypotension Etiology = probably related to poor fluid intake and blood pressure medication Manifestations = dizziness now resolved Location of injury = Home Lab values = hemoglobin 9.0 consistent with microchromic anemia potassium low 3.2 consistent hypokalemia creatinine elevated 1.2 consistent with chronic renal failure stage G3a troponin was negative Plan Good improvement with oral fluids, suspicious that the problem with the blood pressure is related to his blood pressure medications would recommend that he space them out rather than taking them all at once prior to cardiac rehab This note was dictated using [employer] voice recognition software please call with any questions on syntax or grammar.
[2021-06-10 17:44] VITALS: BP 144/84; PULSE 72
== END 2021-06-10 17:49 | disposition home or self-care (01) ==
LOC: JP.ED 14:41
DX: I95.9 Hypotension, unspecified (principal); I25.10 Atherosclerotic heart disease of native coronary artery without angina pectoris; K21.9 Gastro-esophageal reflux disease without esophagitis; E66.9 Obesity, unspecified; I50.9 Heart failure, unspecified; N18.9 Chronic kidney disease, unspecified; Z68.24 Body mass index [BMI] 24.0-24.9, adult
CPT/HCPCS: 36415; 80048; 84484; 85025; 99284

== ENCOUNTER 2021-09-21 11:36 | Observation (INO) | payer MEDICARE, MEDICAID ==
--- NOTE | 2021-09-21 12:37 | EDM.PDOC ---
ED HPI GENERAL MEDICAL PROBLEM - General Chief Complaint: General Stated Complaint: MEDICAL [facility] Time Seen by Provider: 09/21/21 12:36 Source of Information: Reports: Patient, RN Notes Reviewed History Limitations: Reports: No Limitations - History of Present Illness INITIAL COMMENTS - FREE TEXT/NARRATIVE: Arjun presents today via EMS with complaints of weakness. He states he fell this past 5 yo 5 days ago and was able to get up okay. He then fell today in his bathroom CORE [facility] and feels more weak. He complains of a sore neck and swelling of his feet. He also complains of abdominal bloating and fluid build up. He reports palpitations off and on, states this has been happening for years. He states he quit drinking alcohol. Vodka and orange juice are his preferred beverage. Last pint of vodka 4 to 5 days ago. He denies dizziness, chest pain, SOB, difficulty breathing, cough, fever, chills, change in vision, tremors or seizure like activity or other concerns. Arjun lives by himself, his mother checks on him. She is present today. She states he has been getting more week the past 7 to 14 days and has not been cooking much lately. Arjun is unsure of his last primary care or cardiology provider appointments. He states he takes his medication as directed, cooks his own food. stiff neck Pain Score (Numeric/FACES): 9 - Related Data Allergies Allergy/AdvReac Type Severity Reaction Status Date / Time No Known Allergies Allergy Verified 09/21/21 12:04 Home Meds: Home Meds Omeprazole 20 mg PO BID 07/29/17 [History] carvediloL [Carvedilol] 12.5 mg PO BID 07/29/17 [History] traZODone HCl [Trazodone HCl] 200 mg PO BEDTIME 07/29/17 [History] Calcium Carbonate/Vitamin D3 [Calcium 600 + Vit D Tablet] 1 tab PO TID 06/07/19 [History] Cholecalciferol (Vitamin D3) [Vitamin D3] 1,000 unit PO DAILY 06/07/19 [History] Cyanocobalamin (Vitamin B-12) [Vitamin B12] 2,500 mcg PO DAILY 06/07/19 [History] Furosemide 1 tab PO DAILY 06/07/19 [History] Gabapentin [Neurontin] 600 mg PO BEDTIME 06/07/19 [History] Iron Polysaccharide Complex [Ferric X-150] 150 mg PO DAILY 06/07/19 [History] Multivitamin [Multivitamins] 1 tab PO DAILY 06/07/19 [History] Thiamine [Vitamin B-1] 100 mg PO DAILY 06/07/19 [History] Vitamin E 100 unit PO DAILY 06/07/19 [History] busPIRone HCl [Buspirone HCl] 10 mg PO TID 06/07/19 [History] Folic Acid 0.4 mg PO DAILY 02/12/21 [History] Losartan [Cozaar] 12.5 mg PO DAILY 02/12/21 [History] Acetaminophen 650 mg PO Q4H PRN #200 tablet 02/19/21 [Rx] Dimethicone/Zinc Oxide [Rash Relief-Zinc Oxide] 1 gm TOP Q4H PRN #1 bottle 02/19/21 [Rx] Magnesium 25 mg PO DAILY 06/10/21 [History] Past Medical History HEENT History: Reports: Impaired Vision Cardiovascular History: Reports: Arrhythmia, Automatic Implantable Cardioverter Defibrillators, CAD, Cardiomyopathy, Heart Failure Gastrointestinal History: Reports: GERD Genitourinary History: Reports: Chronic Renal Insuffiency Musculoskeletal History: Reports: Arthritis, Fracture Neurological History: Reports: Concussion, Seizure Psychiatric History: Reports: Addiction, Anxiety Endocrine/Metabolic History: Reports: Obesity/BMI 30+ Hematologic History: Reports: Blood Transfusion(s) - Past Surgical History Head Surgeries/Procedures: Reports: None Cardiovascular Surgical History: Reports: AICD GI Surgical History: Reports: Colonoscopy Endocrine Surgical History: Reports: None Musculoskeletal Surgical History: Reports: Hip Replacement, Other (See Below) Other Musculoskeletal Surgeries/Procedures:: arm repair Social & Family History - Family History Family Medical History: No Pertinent Family History - Tobacco Use Tobacco Use Status *Q: Never Tobacco User - Caffeine Use Caffeine Use: Reports: Tea - Alcohol Use Date of Last Drink: 09/17/21 - Recreational Drug Use Recreational Drug Use: No ED ROS GENERAL - Review of Systems Review Of Systems: See Below Constitutional: Reports: Malaise, Weakness, Decreased Appetite. Denies: Fever, Chills, Night Sweats, Diaphoresis, Weight Gain HEENT: Reports: No Symptoms Respiratory: Reports: No Symptoms Cardiovascular: Reports: Palpitations (patient reports this is chronic, he has internal defibrillator.) Endocrine: Reports: No Symptoms GI/Abdominal: Reports: Decreased Appetite, Distension (bloating, patient states "I can't get my jeans or belt on". ). Denies: Abdominal Pain, Anorexia, Black Stool, Bloody Stool, Constipation, Diarrhea, Difficulty Swallowing, Hematemesis, Hematochezia, Melena, Mucous in Stool, Nausea, Vomiting : Reports: No Symptoms Musculoskeletal: Reports: Neck Pain (stiffness. ), Muscle Pain, Muscle Stiffn ess. Denies: Shoulder Pain, Arm Pain, Back Pain, Hand Pain, Leg Pain, Foot Pain, Joint Pain, Joint Swelling Skin: Reports: Dryness, Other (edema to bilateral lower legs) Neurological: Reports: Difficulty Walking (due to weakness), Weakness. Denies: Confusion, Dizziness, Headache, Numbness, Paresthesia, Seizure, Syncope, Tingling, Tremors, Trouble Speaking, Change in Speech Psychiatric: Reports: No Symptoms Hematologic/Lymphatic: Reports: No Symptoms Immunologic: Reports: No Symptoms ED EXAM, GENERAL - Physical Exam Exam: See Below Exam Limited By: No Limitations General Appearance: Alert, WD/WN, No Apparent Distress Eye Exam: Bilateral Eye: PERRL Ears: Normal External Exam, Hearing Grossly Normal, Normal TMs, Other (impacted cerumen to left ) Throat/Mouth: Normal Inspection, Normal Lips, Normal Teeth, Normal Gums, Normal Oropharynx, Normal Voice, No Airway Compromise Head: Normocephalic, Other (Noted faded ecchymosis to forehead extending to occiput. No skull depressions or pain with palpation.). No: Facial Swelling, Facial Tenderness, Sinus Tenderness Neck: Supple, Full Range of Motion, Tender Lateral (left lateral paraspinal muscles. ). No: Lymphadenopathy (R), Lymphadenopathy (L), Tender Midline Respiratory/Chest: No Respiratory Distress, Normal Breath Sounds, No Accessory Muscle Use, Chest Non-Tender, Decreased Breath Sounds. No: Crackles, Rales, Rhonchi, Wheezing, Stridor, Retractions, Splinting Cardiovascular: Regular Rate, Rhythm, No Edema, No Gallop, No Murmur, No Rub. No: Normal Peripheral Pulses (Bilateral lower extremity pulses weak. ) Peripheral Pulses: 2+: Dorsalis Pedis (L), Dorsalis Pedis (R), 4+: Radial (L), Radial (R) GI/Abdominal: Normal Bowel Sounds, Soft, Non-Tender, No Organomegaly, No Mass, Pelvis Stable, Distended. No: Guarding, Rigid, Rebound, Tender (Male) Exam: No Hernia, Circumcised, Rash (beefy red rash right groin, yeast odor noted). No: Inguinal Lymphadenopathy, Scrotal Swelling, Scrotum Tenderness (L), Scrotum Tenderness (R), Testicular Tenderness (L), Testicular Tenderness (R) Back Exam: Normal Inspection, Full Range of Motion (generalized weakness). No: CVA Tenderness (R), CVA Tenderness (L) Extremities: Normal Range of Motion (generalized weakness ), Non-Tender, Normal Capillary Refill, Pedal Edema (4+ edema), Pallor, Other (several areas of ecchymosis bilateral upper extremities. Right great toenail partiall avulsed with dried blood. ). No: Mottled Neurological: Alert, Oriented, Normal Cognition Psychiatric: Depressed Mood, Flat Affect Skin Exam: Warm, Dry, Erythema (trace erythema to right great toe, tenderness. Beefy red rash to right groin, yeast. ), Wound/Incision (Noted pressure ulcer with peeling of skin to bilateral sacrum. Skin cleansed, patted dry and allevyn applied. ) Lymphatic: No Adenopathy ED GENERAL MEDICAL PROCEDURES - Additional/Other Procedure(s) Other (Free Text) Procedure(s): Right great toe cleansed with betadine. Digital block with 1% lidocaine infiltrated to right great toe. Nail bed raised with iris scissor, toenail removed easily without complication. Great toe scrubbed with soap and water, patted dry. Vaseline gauze, gauze and 2" gladys wrap to right great toe. Patient tolerated well. Right and left groin cleansed with aloe wipes, patted dry. Noted yeast rash to right. Nystatin and zinc oxide ointment applied. Noted pressure ulcer to bilateral sacrum. Area cleansed with aloe wipes, patted dry. Allevyn dressing applied. Patient turned every 3o minutes while on stretcher. #1 Interpretation EKG Date: 09/21/21 Time: 13:10 Rhythm: Other (atrial -sensed ventricular paced complexes) Comparison: No Change Course - Vital Signs Last Recorded V/S: Last Vital Signs Temp 36.3 C 09/21/21 17:02 Pulse 112 H 09/21/21 17:02 Resp 16 09/21/21 17:02 BP 111/74 09/21/21 17:02 Pulse Ox 97 09/21/21 17:02 - Orders/Labs/Meds Orders: Active Orders 24 hr Category Date Time Status Paez Catheter Insertion [Insert Urinary Catheter] [OM. Care 09/21/21 14:15 Ordered PC] Q24H Urinary Catheter Assessment [RC] ASDIRECTED Care 09/21/21 14:13 Active Chest 1V Frontal [CR] Stat Exams 09/21/21 12:57 Taken Sodium Chloride 0.9% [Saline Flush] Med 09/21/21 12:58 Active 10 ml FLUSH ASDIRECTED PRN Saline Lock Insert [OM.PC] Routine Oth 09/21/21 12:58 Ordered EKG 12 Lead [EK] Routine Ther 09/21/21 12:57 Stop Req Medication Orders Acetaminophen (Acetaminophen 325 Mg Tab) 650 mg PO Q4H PRN PRN Reason: Pain (Mild 1-3)/fever Last Admin: 09/21/21 17:00 Dose: 650 mg Documented by: [id number] Albuterol (Albuterol 0.083% 2.5 Mg/3 Ml Neb Soln) 2.5 mg NEB Q4H PRN PRN Reason: Shortness Of Breath/wheezing Buspirone HCl (Buspirone 10 Mg Tab) 10 mg PO TID YOHAN Carvedilol (Carvedilol 12.5 Mg Tab) 12.5 mg PO BID YOHAN Cholecalciferol (Cholecalciferol (Vitamin D3) 25 Mcg Tab) 25 mcg PO DAILY YOHAN Cyanocobalamin (Cyanocobalamin (Vitamin B12) 1,000 Mcg Tab) 2,500 mcg PO DAILY [facility] Enoxaparin Sodium (Enoxaparin 40 Mg/0.4 Ml Syringe) 40 mg SUBCUT DAILY [facility] Folic Acid (Folic Acid 1 Mg Tab) 1 mg PO DAILY [facility] Furosemide (Furosemide 40 Mg/4 Ml Vial) 40 mg IVPUSH DAILY [facility] Gabapentin (Gabapentin 300 Mg Cap) 600 mg PO BEDTIME YOHAN Lorazepam (Lorazepam 2 Mg/Ml Sdv) 0.5 mg IVPUSH Q4H PRN PRN Reason: Nausea/Vomiting Losartan Potassium (Losartan 25 Mg Tab) 12.5 mg PO DAILY [facility] Magnesium Hydroxide (Magnesium Hydroxide 400 Mg/5 Ml Susp 30 Ml Cup) 30 ml PO Q12H PRN PRN Reason: Constipation Melatonin (Melatonin 3 Mg Tab) 9 mg PO BEDTIME [facility] Nystatin (Nystatin Topical Powder 15 Gm Bottle) 0 gm TOP BID YOHAN Ondansetron HCl (Ondansetron 4 Mg/2 Ml Sdv) 4 mg IV Q6H PRN PRN Reason: Nausea/Vomiting Ondansetron HCl (Ondansetron 4 Mg Tab.Dis) 4 mg PO Q6H PRN PRN Reason: Nausea able to take PO Pantoprazole Sodium (Pantoprazole 40 Mg Tab.Cr) 40 mg PO BIDAC YOHAN Last Admin: 09/21/21 17:00 Dose: 40 mg Documented by: [email or web address] Senna/Docusate Sodium (Docusate Sodium/Sennosides 50-8.6 Mg Tab) 1 tab PO BID PRN PRN Reason: Constipation Sodium Chloride (Sodium Chloride 0.9% 10 Ml Syringe) 10 ml FLUSH ASDIRECTED PRN PRN Reason: Keep Vein Open Last Admin: 09/21/21 14:14 Dose: 10 ml Documented by: MELYSSA Thiamine HCl (Thiamine 100 Mg Tab) 100 mg PO DAILY [facility] Trazodone HCl (Trazodone 50 Mg Tab) 200 mg PO BEDTIME [facility] Labs: Laboratory Tests 09/21/21 09/21/21 09/21/21 Range/Units 13:05 13:05 13:05 WBC 4.1 L (4.5-11.0) K/uL RBC 2.38 L (4.30-5.90) M/uL Hgb 8.6 L (12.0-15.0) g/dL Hct 26.8 L (40.0-54.0) % MCV 113 H (80-98) fL MCH 36 H (27-31) pg MCHC 32 (32-36) % Plt Count 90 L (150-400) K/uL Neut % (Auto) 56.3 (36-66) % Lymph % (Auto) 13.5 L (24-44) % [place] % (Auto) 29.0 H (2-6) % Eos % (Auto) 1.0 L (2-4) % Baso % (Auto) 0.2 (0-1) % Sodium 134 L (140-148) mmol/L Potassium 3.3 L (3.6-5.2) mmol/L Chloride 95 L (100-108) mmol/L Carbon Dioxide 32 (21-32) mmol/L Anion Gap 10.3 (5.0-14.0) mmol/L BUN 27 H (7-18) mg/dL Creatinine 1.6 H (0.8-1.3) mg/dL Est Cr Clr Drug Dosing 43.03 mL/min Estimated GFR (MDRD) 44 L (>60) Glucose 134 H (74-106) mg/dL Calcium 9.0 (8.5-10.1) mg/dL Total Bilirubin 1.1 H D (0.2-1.0) mg/dL AST 157 H D (15-37) U/L ALT 84 H (12-78) U/L Alkaline Phosphatase 113 (46-116) U/L Ammonia 20 (11-32) umol/L C-Reactive Protein 1.83 H (0.0-0.3) mg/dL NT-Pro-B Natriuret Pep 9096 H (5-125) pg/mL Total Protein 6.2 L (6.4-8.2) g/dL Albumin 3.0 L (3.4-5.0) g/dL Globulin 3.2 (2.3-3.5) g/dL Albumin/Globulin Ratio 0.9 L (1.2-2.2) Urine Color (YELLOW) Urine Appearance (CLEAR) Urine pH (5.0-8.0) Ur Specific [place] (1.008-1.030) Urine Protein (NEGATIVE) mg/dL Urine Glucose (UA) (NEGATIVE) mg/dL Urine Ketones (NEGATIVE) mg/dL Urine Occult Blood (NEGATIVE) Urine Nitrite (NEGATIVE) Urine Bilirubin (NEGATIVE) Urine Urobilinogen (0.2-1.0) EU/dL Ur Leukocyte Esterase (NEGATIVE) Urine RBC (0-5) Urine WBC (0-5) Ur Epithelial Cells Amorphous Sediment Urine Bacteria Urine Mucus Ethyl Alcohol mg/dL SARS CoV-2 RNA Rapid DIONNA 09/21/21 09/21/21 09/21/21 Range/Units 13:05 13:12 14:44 WBC (4.5-11.0) K/uL RBC (4.30-5.90) M/uL Hgb (12.0-15.0) g/dL Hct (40.0-54.0) % MCV (80-98) fL MCH (27-31) pg MCHC (32-36) % Plt Count (150-400) K/uL Neut % (Auto) (36-66) % Lymph % (Auto) (24-44) % [place] % (Auto) (2-6) % Eos % (Auto) (2-4) % Baso % (Auto) (0-1) % Sodium (140-148) mmol/L Potassium (3.6-5.2) mmol/L Chloride (100-108) mmol/L Carbon Dioxide (21-32) mmol/L Anion Gap (5.0-14.0) mmol/L BUN (7-18) mg/dL Creatinine (0.8-1.3) mg/dL Est Cr Clr Drug Dosing mL/min Estimated GFR (MDRD) (>60) Glucose (74-106) mg/dL Calcium (8.5-10.1) mg/dL Total Bilirubin (0.2-1.0) mg/dL AST (15-37) U/L ALT (12-78) U/L Alkaline Phosphatase (46-116) U/L Ammonia (11-32) umol/L C-Reactive Protein (0.0-0.3) mg/dL NT-Pro-B Natriuret Pep (5-125) pg/mL Total Protein (6.4-8.2) g/dL Albumin (3.4-5.0) g/dL Globulin (2.3-3.5) g/dL Albumin/Globulin Ratio (1.2-2.2) Urine Color Yellow (YELLOW) Urine Appearance Slightly cloudy A (CLEAR) Urine pH 7.0 (5.0-8.0) Ur Specific [place] 1.015 (1.008-1.030) Urine Protein Negative (NEGATIVE) mg/dL Urine Glucose (UA) Negative (NEGATIVE) mg/dL Urine Ketones Negative (NEGATIVE) mg/dL Urine Occult Blood Moderate H (NEGATIVE) Urine Nitrite Negative (NEGATIVE) Urine Bilirubin Negative (NEGATIVE) Urine Urobilinogen 0.2 (0.2-1.0) EU/dL Ur Leukocyte Esterase Negative (NEGATIVE) Urine RBC 10-20 H (0-5) Urine WBC 0-5 (0-5) Ur Epithelial Cells Not seen Amorphous Sediment Not seen Urine Bacteria Not seen Urine Mucus Few Ethyl Alcohol < 3 mg/dL SARS CoV-2 RNA Rapid DIONNA Negative Patient lab work reviewed. CHF, Congestive heart failure, Alcoholism, Peripheral edema, Hypokalemia, Generalized weakness, Thrombocytopenia, Elevated LFTs Meds: Medications Generic Name Dose Route Start Last Admin Trade Name Freq PRN Reason Stop Dose Admin Acetaminophen 650 mg 09/21/21 15:56 09/21/21 17:00 Acetaminophen 325 Mg Tab PO 650 mg Q4H PRN Administration Pain (Mild 1-3)/fever Albuterol 2.5 mg 09/21/21 15:56 Albuterol 0.083% 2.5 Mg/3 Ml Neb Soln NEB Q4H PRN Shortness Of Breath/wheezing Buspirone HCl 10 mg 09/21/21 21:00 Buspirone 10 Mg Tab PO TID YOHAN Carvedilol 12.5 mg 09/21/21 21:00 Carvedilol 12.5 Mg Tab PO BID [facility] Cholecalciferol 25 mcg 09/22/21 09:00 Cholecalciferol (Vitamin D3) 25 Mcg Tab PO DAILY [facility] Cyanocobalamin 2,500 mcg 09/22/21 09:00 Cyanocobalamin (Vitamin B12) 1,000 Mcg Tab PO DAILY [facility] Enoxaparin Sodium 40 mg 09/22/21 09:00 Enoxaparin 40 Mg/0.4 Ml Syringe SUBCUT DAILY [facility] Folic Acid 1 mg 09/22/21 09:00 Folic Acid 1 Mg Tab PO DAILY [facility] Furosemide 40 mg 09/22/21 09:00 Furosemide 40 Mg/4 Ml Vial IVPUSH DAILY [facility] Gabapentin 600 mg 09/21/21 21:00 Gabapentin 300 Mg Cap PO BEDTIME YOHAN Lorazepam 0.5 mg 09/21/21 15:56 Lorazepam 2 Mg/Ml Sdv IVPUSH Q4H PRN Nausea/Vomiting Losartan Potassium 12.5 mg 09/22/21 09:00 Losartan 25 Mg Tab PO DAILY YOHAN Magnesium Hydroxide 30 ml 09/21/21 15:56 Magnesium Hydroxide 400 Mg/5 Ml Susp 30 Ml Cup PO Q12H PRN Constipation Melatonin 9 mg 09/21/21 21:00 Melatonin 3 Mg Tab PO BEDTIME [facility] Nystatin 0 gm 09/21/21 21:00 Nystatin Topical Powder 15 Gm Bottle TOP BID YOHAN Ondansetron HCl 4 mg 09/21/21 15:56 Ondansetron 4 Mg/2 Ml Sdv IV Q6H PRN Nausea/Vomiting Ondansetron HCl 4 mg 09/21/21 15:56 Ondansetron 4 Mg Tab.Dis PO Q6H PRN Nausea able to take PO Pantoprazole Sodium 40 mg 09/21/21 16:30 09/21/21 17:00 Pantoprazole 40 Mg Tab.Cr PO 40 mg BIDAC YOHAN Administration Senna/Docusate Sodium 1 tab 09/21/21 15:56 Docusate Sodium/Sennosides 50-8.6 Mg Tab PO BID PRN Constipation Sodium Chloride 10 ml 09/21/21 12:58 09/21/21 14:14 Sodium Chloride 0.9% 10 Ml Syringe FLUSH 10 ml ASDIRECTED PRN Administration Keep Vein Open Thiamine HCl 100 mg 09/22/21 09:00 Thiamine 100 Mg Tab PO DAILY YOHAN Trazodone HCl 200 mg 09/21/21 21:00 Trazodone 50 Mg Tab PO BEDTIME YOHAN Discontinued Medications Generic Name Dose Route Start Last Admin Trade Name Freq PRN Reason Stop Dose Admin Furosemide 40 mg 09/21/21 14:13 09/21/21 14:18 Furosemide 40 Mg/4 Ml Vial IVPUSH 09/21/21 14:14 40 mg ONETIME ONE Administration Lidocaine HCl 20 ml 09/21/21 13:58 09/21/21 14:13 Lidocaine 1% 20 Ml Mdv INJECT 09/21/21 13:59 20 ml ONETIME ONE Administration Multi-Ingred Cream/Lotion/Oil/Oint 0 gm 09/21/21 15:30 09/21/21 15:22 Zinc Oxide 20% Oint 56.7 Gm Tube TOP 09/21/21 15:31 1 applic ASDIRECTED ONE Administration Nystatin 2 gm 09/21/21 14:36 09/21/21 15:21 Nystatin Crm 15 Gm Tube TOP 09/21/21 14:37 1 applic ONETIME ONE Administration - Radiology Interpretation Free Text/Narrative:: Chest x-ray reviewed, wet read. Noted cardiomegaly. - Re-Assessments/Exams Free Text/Narrative Re-Assessment/Exam: 09/21/21 14:[address] Alexis of patient status, lab work, chest x-ray. He will be admitted per Dr. Alexis. Patient and his mother in agreement. Departure - Departure Time of Disposition: 15:10 Disposition: Admitted As Inpatient 67 Condition: Fair Clinical Impression: CHF, Congestive heart failure, Alcoholism, Peripheral edema, Hypokalemia, Generalized weakness, Thrombocytopenia, Elevated LFTs Anemia Qualifiers: Anemia type: unspecified type Qualified Code(s): D64.9 - Anemia, unspecified - Discharge Information Sepsis Event Note (ED) - Evaluation Sepsis Screening Result: No Definite Risk - Focused Exam Vital Signs: Vital Signs Temp Pulse Resp BP Pulse Ox 09/21/21 14:40 104 H 19 109/84 97 09/21/21 13:40 108 H 111/84 95 09/21/21 12:40 106 H 106/79 97 09/21/21 12:00 36.6 C 107 H 16 123/71 94 L 09/21/21 11:40 36.6 C 107 H 16 123/71 94 L - My Orders Last 24 Hours: My Active Orders 09/21/21 12:57 Chest 1V Frontal [CR] Stat EKG 12 Lead [EK] Routine 09/21/21 12:58 Sodium Chloride 0.9% [Saline Flush] 10 ml FLUSH ASDIRECTED PRN Saline Lock Insert [OM.PC] Routine 09/21/21 14:13 Urinary Catheter Assessment [RC] ASDIRECTED 09/21/21 14:15 Paez Catheter Insertion [Insert Urinary Catheter] [OM.PC] Q24H - Assessment/Plan Last 24 Hours: My Active Orders 09/21/21 12:57 Chest 1V Frontal [CR] Stat EKG 12 Lead [EK] Routine 09/21/21 12:58 Sodium Chloride 0.9% [Saline Flush] 10 ml FLUSH ASDIRECTED PRN Saline Lock Insert [OM.PC] Routine 09/21/21 14:13 Urinary Catheter Assessment [RC] ASDIRECTED 09/21/21 14:15 Paez Catheter Insertion [Insert Urinary Catheter] [OM.PC] Q24H Assessment:: CHF, Congestive heart failure, Alcoholism, Peripheral edema, Hypokalemia, Generalized weakness, Thrombocytopenia, Elevated LFTs Plan: Patient will be admitted per Dr. Alexis for ongoing care.
[2021-09-21] MEDS ORDERED: Sodium Chloride 0.9% 10 ML Syringe FLUSH PRN (12:58)
[2021-09-21] MEDS ORDERED: Lidocaine 1% 20 ML MDV INJECT ONE (13:58)
[2021-09-21] MEDS ORDERED: Furosemide 40 MG/4 ML VIAL IVPUSH ONE (14:13)
[2021-09-21] MEDS ORDERED: Nystatin Crm 15 GM Tube TOP ONE (14:36)
[2021-09-21] MEDS ORDERED: Zinc Oxide 20% Oint 453.6 GM Jar TOP ONE ×2 (15:04→15:30)
[2021-09-21] MEDS ORDERED: Zinc Oxide 20% Oint 56.7 GM Tube TOP ONE (15:30)
--- NOTE | 2021-09-21 15:31 | PCM.HP.2 ---
H&P History of Present Illness - General Date of Service: 09/21/21 Admit Problem/Dx: Admission Diagnosis/Problem Admission Diagnosis/Problem Systolic congestive heart failure Source of Information: Patient, Family, Provider History Limitations: Reports: No Limitations - History of Present Illness Initial Comments - Free Text/Narative: CC: I feel fine HPI: Arjun presents to the emergency room with weakness. He reports this has progressed over the past 2 weeks or so. He did have a fall about 2 weeks ago and did strike the top of his head but is not quite sure if he was getting weak first or if he fell before he started getting weak. He has not had any headaches or blurry vision since that time. He does not report chest pain, shortness of breath or abdominal pain. No change in bowel or bladder habits. He has noticed an increase in his lower extremity edema over the past few weeks and thinks this started prior to his weakness. He has not had any fevers or c hills. He does not have much of an appetite and has not been eating well for the past several weeks. He reports that he has been taking his medications as prescribed. He also reports that he has been drinking vodka daily for the past several months but did quit about 5 days ago because he was too weak to get any more. He has not noticed any symptoms that raise concern for alcohol withdrawal over the past few days. He was too weak to get up today so he was brought in by ambulance. Work-up in the emergency room has been remarkable for mild pancytopenia probably related to his chronic liver disease. He has mild increase in his creatinine and some evidence for congestive heart failure based on examination and an elevated BNP. He has some lower extremity edema with the right leg being more swollen than the left. He has received furosemide and a Paez catheter has been placed. He will be admitted for management. stiff neck Pain Score (Numeric/FACES): 9 - Related Data Allergies/Adverse Reactions: Allergies Allergy/AdvReac Type Severity Reaction Status Date / Time No Known Allergies Allergy Verified 09/21/21 12:04 Home Medications: Home Meds Omeprazole 20 mg PO BID 07/29/17 [History] carvediloL [Carvedilol] 12.5 mg PO BID 07/29/17 [History] traZODone HCl [Trazodone HCl] 200 mg PO BEDTIME 07/29/17 [History] Calcium Carbonate/Vitamin D3 [Calcium 600 + Vit D Tablet] 1 tab PO TID 06/07/19 [History] Cholecalciferol (Vitamin D3) [Vitamin D3] 1,000 unit PO DAILY 06/07/19 [History] Cyanocobalamin (Vitamin B-12) [Vitamin B12] 2,500 mcg PO DAILY 06/07/19 [History] Furosemide 1 tab PO DAILY 06/07/19 [History] Gabapentin [Neurontin] 600 mg PO BEDTIME 06/07/19 [History] Iron Polysaccharide Complex [Ferric X-150] 150 mg PO DAILY 06/07/19 [History] Multivitamin [Multivitamins] 1 tab PO DAILY 06/07/19 [History] Thiamine [Vitamin B-1] 100 mg PO DAILY 06/07/19 [History] Vitamin E 100 unit PO DAILY 06/07/19 [History] busPIRone HCl [Buspirone HCl] 10 mg PO TID 06/07/19 [History] Folic Acid 0.4 mg PO DAILY 02/12/21 [History] Losartan [Cozaar] 12.5 mg PO DAILY 02/12/21 [History] Acetaminophen 650 mg PO Q4H PRN #200 tablet 02/19/21 [Rx] Dimethicone/Zinc Oxide [Rash Relief-Zinc Oxide] 1 gm TOP Q4H PRN #1 bottle 02/19/21 [Rx] Magnesium 25 mg PO DAILY 06/10/21 [History] Past Medical History HEENT History: Reports: Impaired Vision Cardiovascular History: Reports: Arrhythmia, Automatic Implantable Cardioverter Defibrillators, CAD, Cardiomyopathy, Heart Failure Gastrointestinal History: Reports: GERD Genitourinary History: Reports: Chronic Renal Insuffiency Musculoskeletal History: Reports: Arthritis, Fracture Neurological History: Reports: Concussion, Seizure Psychiatric History: Reports: Addiction, Anxiety Endocrine/Metabolic History: Reports: Obesity/BMI 30+ Hematologic History: Reports: Blood Transfusion(s) - Past Surgical History Head Surgeries/Procedures: Reports: None Cardiovascular Surgical History: Reports: AICD GI Surgical History: Reports: Colonoscopy Endocrine Surgical History: Reports: None Musculoskeletal Surgical History: Reports: Hip Replacement, Other (See Below) Other Musculoskeletal Surgeries/Procedures:: arm repair Social & Family History - Family History Family Medical History: No Pertinent Family History - Tobacco Use Tobacco Use Status *Q: Never Tobacco User - Caffeine Use Caffeine Use: Reports: Tea - Alcohol Use Date of Last Drink: 09/17/21 - Recreational Drug Use Recreational Drug Use: No H&P Review of Systems - Review of Systems: Review Of Systems: See Below Free Text/Narrative: A complete 12 point review of systems was obtained. Pertinent positives and negatives are noted in the history of present illness. All other systems were reviewed and were negative except as noted. Exam - Exam Exam: See Below - Vital Signs Vital Signs: Last Vital Signs Temp 36.6 C 09/21/21 12:00 Pulse 104 H 09/21/21 14:40 Resp 19 09/21/21 14:40 BP 109/84 09/21/21 14:40 Pulse Ox 97 09/21/21 14:40 Weight: 72.575 kg - Exam Quality Assessment: No: Supplemental Oxygen General: Alert, Oriented, Cooperative. No: Mild Distress HEENT: Conjunctiva Clear. No: Mucosa Moist & [place] (Dry), Scleral Icterus Neck: Supple, Trachea Midline, JVD Lungs: Normal Respiratory Effort, Crackles (Few both bases) Cardiovascular: Regular Rate, Regular Rhythm, Systolic Murmur, Gallop/S3 GI/Abdominal Exam: Normal Bowel Sounds, Soft, Non-Tender, No Distention, No Mass. No: Hepatomegaly, Splenomegaly Back Exam: Normal Inspection, Full Range of Motion Extremities: Pedal Edema (Pitting edema of the right leg from the foot up to below the knee. Mild edema of the left leg around the ankle and lower calf area). No: Increased Warmth Skin: Warm, Dry Neuro Extensive - Mental Status: Alert, Oriented x3, Nl Response to Commands Neuro Extensive - Motor, Sensory, Reflexes: No: Dysarthria, Abnormal Motor, Tremor Psychiatric: Alert, Normal Affect - Patient Data Lab Results Last 24 hrs: Laboratory Results - last 24 hr 09/21/21 09/21/21 09/21/21 Range/Units 13:05 13:05 13:05 WBC 4.1 L (4.5-11.0) K/uL RBC 2.38 L (4.30-5.90) M/uL Hgb 8.6 L (12.0-15.0) g/dL Hct 26.8 L (40.0-54.0) % MCV 113 H (80-98) fL MCH 36 H (27-31) pg MCHC 32 (32-36) % Plt Count 90 L (150-400) K/uL Neut % (Auto) 56.3 (36-66) % Lymph % (Auto) 13.5 L (24-44) % [place] % (Auto) 29.0 H (2-6) % Eos % (Auto) 1.0 L (2-4) % Baso % (Auto) 0.2 (0-1) % Sodium 134 L (140-148) mmol/L Potassium 3.3 L (3.6-5.2) mmol/L Chloride 95 L (100-108) mmol/L Carbon Dioxide 32 (21-32) mmol/L Anion Gap 10.3 (5.0-14.0) mmol/L BUN 27 H (7-18) mg/dL Creatinine 1.6 H (0.8-1.3) mg/dL Est Cr Clr Drug Dosing 43.03 mL/min Estimated GFR (MDRD) 44 L (>60) Glucose 134 H (74-106) mg/dL Calcium 9.0 (8.5-10.1) mg/dL Total Bilirubin 1.1 H D (0.2-1.0) mg/dL AST 157 H D (15-37) U/L ALT 84 H (12-78) U/L Alkaline Phosphatase 113 (46-116) U/L Ammonia 20 (11-32) umol/L C-Reactive Protein 1.83 H (0.0-0.3) mg/dL NT-Pro-B Natriuret Pep 9096 H (5-125) pg/mL Total Protein 6.2 L (6.4-8.2) g/dL Albumin 3.0 L (3.4-5.0) g/dL Globulin 3.2 (2.3-3.5) g/dL Albumin/Globulin Ratio 0.9 L (1.2-2.2) Urine Color (YELLOW) Urine Appearance (CLEAR) Urine pH (5.0-8.0) Ur Specific [place] (1.008-1.030) Urine Protein (NEGATIVE) mg/dL Urine Glucose (UA) (NEGATIVE) mg/dL Urine Ketones (NEGATIVE) mg/dL Urine Occult Blood (NEGATIVE) Urine Nitrite (NEGATIVE) Urine Bilirubin (NEGATIVE) Urine Urobilinogen (0.2-1.0) EU/dL Ur Leukocyte Esterase (NEGATIVE) Urine RBC (0-5) Urine WBC (0-5) Ur Epithelial Cells Amorphous Sediment Urine Bacteria Urine Mucus Ethyl Alcohol mg/dL SARS CoV-2 RNA Rapid DIONNA 09/21/21 09/21/21 09/21/21 Range/Units 13:05 13:12 14:44 WBC (4.5-11.0) K/uL RBC (4.30-5.90) M/uL Hgb (12.0-15.0) g/dL Hct (40.0-54.0) % MCV (80-98) fL MCH (27-31) pg MCHC (32-36) % Plt Count (150-400) K/uL Neut % (Auto) (36-66) % Lymph % (Auto) (24-44) % [place] % (Auto) (2-6) % Eos % (Auto) (2-4) % Baso % (Auto) (0-1) % Sodium (140-148) mmol/L Potassium (3.6-5.2) mmol/L Chloride (100-108) mmol/L Carbon Dioxide (21-32) mmol/L Anion Gap (5.0-14.0) mmol/L BUN (7-18) mg/dL Creatinine (0.8-1.3) mg/dL Est Cr Clr Drug Dosing mL/min Estimated GFR (MDRD) (>60) Glucose (74-106) mg/dL Calcium (8.5-10.1) mg/dL Total Bilirubin (0.2-1.0) mg/dL AST (15-37) U/L ALT (12-78) U/L Alkaline Phosphatase (46-116) U/L Ammonia (11-32) umol/L C-Reactive Protein (0.0-0.3) mg/dL NT-Pro-B Natriuret Pep (5-125) pg/mL Total Protein (6.4-8.2) g/dL Albumin (3.4-5.0) g/dL Globulin (2.3-3.5) g/dL Albumin/Globulin Ratio (1.2-2.2) Urine Color Yellow (YELLOW) Urine Appearance Slightly cloudy A (CLEAR) Urine pH 7.0 (5.0-8.0) Ur Specific [place] 1.015 (1.008-1.030) Urine Protein Negative (NEGATIVE) mg/dL Urine Glucose (UA) Negative (NEGATIVE) mg/dL Urine Ketones Negative (NEGATIVE) mg/dL Urine Occult Blood Moderate H (NEGATIVE) Urine Nitrite Negative (NEGATIVE) Urine Bilirubin Negative (NEGATIVE) Urine Urobilinogen 0.2 (0.2-1.0) EU/dL Ur Leukocyte Esterase Negative (NEGATIVE) Urine RBC 10-20 H (0-5) Urine WBC 0-5 (0-5) Ur Epithelial Cells Not seen Amorphous Sediment Not seen Urine Bacteria Not seen Urine Mucus Few Ethyl Alcohol < 3 mg/dL SARS CoV-2 RNA Rapid DIONNA Negative Result Diagrams: 09/21/21 13:05 09/21/21 13:05 Imaging Impressions Last 24 hrs: Chest x-ray-image personally reviewed and compared to January 2021-heart size is mildly enlarged. He has a pacemaker/ICD in place. No evidence for infiltrate, mass or effusion. No obvious bony abnormalities. Sepsis Event Note - Evaluation Sepsis Screening Result: No Definite Risk - Focused Exam Vital Signs: Vital Signs Temp Pulse Resp BP Pulse Ox 09/21/21 14:40 104 H 19 109/84 97 09/21/21 13:40 108 H 111/84 95 09/21/21 12:40 106 H 106/79 97 09/21/21 12:00 36.6 C 107 H 16 123/71 94 L 09/21/21 11:40 36.6 C 107 H 16 123/71 94 L *Q Meaningful Use (ADM) - VTE Risk Assess *Q Each Risk Factor Represents 1 Point: Swollen Legs, Current, Congestive heart failure (CHF) Total Score 1 Point Risk Factors: 2 Each Risk Factor Represents 2 Points: Age 60 - 74 Years Total Score 2 Point Risk Factors: 2 Each Risk Factor Represents 3 Points: None Total Score 3 Point Risk Factors: 0 Each Risk Factor Represents 5 Points: None Total Score 5 Point Risk Factors: 0 Venous Thromboembolism Risk Factor Score *Q: 4 - Problem List (1) Systolic congestive heart failure SNOMED Code(s): 73545111, 519023610 ICD Code: I50.20 - UNSPECIFIED SYSTOLIC (CONGESTIVE) HEART FAILURE Status: Acute Current Visit: Yes Qualifiers: Heart failure chronicity: acute on chronic Qualified Code(s): I50.23 - Acute on chronic systolic (congestive) heart failure (2) Weakness SNOMED Code(s): 52571446 ICD Code: R53.1 - WEAKNESS Status: Acute Current Visit: Yes (3) Alcohol dependence SNOMED Code(s): 95640777 ICD Code: F10.20 - ALCOHOL DEPENDENCE, UNCOMPLICATED Status: Chronic Current Visit: Yes Qualifiers: Substance use status: unspecified alcohol-induced disorder Qualified Code(s): F10.29 - Alcohol dependence with unspecified alcohol-induced disorder (4) Cirrhosis SNOMED Code(s): 40999902 ICD Code: K74.60 - UNSPECIFIED CIRRHOSIS OF LIVER Status: Chronic Current Visit: Yes Qualifiers: Hepatic cirrhosis type: alcoholic cirrhosis Ascites presence: without ascites Qualified Code(s): K70.30 - Alcoholic cirrhosis of liver without ascites (5) Pancytopenia, acquired SNOMED Code(s): 8772024 ICD Code: D61.818 - OTHER PANCYTOPENIA Status: Acute Current Visit: No Problem Details: 2/2 chronic alcohol use (6) Hypokalemia SNOMED Code(s): 36274092 ICD Code: E87.6 - HYPOKALEMIA Status: Acute Current Visit: Yes Problem List Initiated/Reviewed/Updated: Yes Orders Last 24hrs: Active Orders 24 hr Category Date Time Status Patient Status Manage Transfer [TRANSFER] Routine ADT 09/21/21 15:23 Active Paez Catheter Insertion [Insert Urinary Catheter] [OM. Care 09/21/21 14:15 Ordered PC] Q24H Urinary Catheter Assessment [RC] ASDIRECTED Care 09/21/21 14:13 Active Chest 1V Frontal [CR] Stat Exams 09/21/21 12:57 Taken Head wo Cont [CT] Routine Exams 09/21/21 15:21 Ordered Sodium Chloride 0.9% [Saline Flush] Med 09/21/21 12:58 Active 10 ml FLUSH ASDIRECTED PRN Zinc Oxide Med 09/21/21 15:30 Once 0 gm TOP ASDIRECTED ONE Saline Lock Insert [OM.PC] Routine Oth 09/21/21 12:58 Ordered Resuscitation Status Routine Resus Stat 09/21/21 15:25 Ordered EKG 12 Lead [EK] Routine Ther 09/21/21 12:57 Ordered Medication Orders Multi-Ingred Cream/Lotion/Oil/Oint (Zinc Oxide 20% Oint 56.7 Gm Tube) 0 gm TOP ASDIRECTED ONE Stop: 09/21/21 15:31 Last Admin: 09/21/21 15:22 Dose: 1 applic Documented by: PREILOR Sodium Chloride (Sodium Chloride 0.9% 10 Ml Syringe) 10 ml FLUSH ASDIRECTED PRN PRN Reason: Keep Vein Open Last Admin: 09/21/21 14:14 Dose: 10 ml Documented by: PREILOR Assessment/Plan Comment:: ASSESSMENT AND PLAN - Subacute systolic congestive heart failure-evidence for volume overload including JVD and edema. Most recent echocardiogram showed an ejection fraction of 25 to 30%. He also has severe mitral regurgitation. Patient reports medication compliance but he has been drinking. He has not been taking care of himself at home. 40 mg of IV furosemide given in the emergency room. -Repeat dose of furosemide in the morning -Strict intake and output monitoring with daily weights -Paez catheter for intake and output monitoring -Continue medical management including beta-abdelrahman and ARB -Repeat echocardiogram in the morning -Wrap right leg with Zurdo wraps to help with edema Alcohol dependence-complicated by fatty liver/early cirrhosis and acquired pancytopenia. Last drink was about 5 days ago and there is no evidence for alcohol withdrawal at this time. He does have a 2-1 AST to ALT ratio suggestive of recent alcohol use. No evidence for alcoholic hepatitis at this time. -Supplement thiamine and folate -Encourage cessation, offered treatment resources Generalized weakness-probably related to deconditioning as well as longstanding alcohol use along with chronic medical problems. He may need subacute rehab again. -Start physical therapy in the morning -Head CT to rule out intracranial pathology as cause for weakness Hypokalemia-plan to supplement this evening and recheck morning enoxaparin Maintenance issues - -DVT prophylaxis- -GI prophylaxis-PPI -[id number]-[id number] -Paez catheter-placed for strict intake and output monitoring CODE STATUS - full code Admission justification -this patient will be admitted for inpatient services and is medically appropriate meeting medical necessity for inpatient admission as outlined in my documentation. I reasonably expect the patient will require inpatient services that span a period time over 2 midnights. I reasonably expect this patient to be discharged or transferred within 96 hours [facility]. Disposition -I anticipate discharge home after the hospital stay Primary care physician -Dr. David Alexis M.D. - Mortality Measure Prognosis:: Good
[2021-09-21] MEDS ORDERED: Albuterol 0.083% 2.5 MG/3 ML Neb Soln NEB PRN (15:56)
[2021-09-21] MEDS ORDERED: Ondansetron 4 MG/2 ML SDV IV PRN (15:56)
[2021-09-21] MEDS ORDERED: Magnesium Hydroxide 400 MG/5 ML Susp 30 ML Cup PO PRN (15:56)
[2021-09-21] MEDS ORDERED: Ondansetron 4 MG Tab.DIS PO PRN (15:56)
[2021-09-21] MEDS ORDERED: LORazepam 2 MG/ML SDV IVPUSH PRN (15:56)
[2021-09-21] MEDS: Acetaminophen 325 MG Tab PO PRN (17:00)
[2021-09-21] MEDS: Pantoprazole 40 MG Tab.CR PO SCH (17:00)
--- NOTE | 2021-09-21 17:04 | CRLCT ---
For Patients: As a result of the Century Cures Act, medical imaging exams and procedure reports are released immediately into your electronic medical record. You may view this report before your referring provider. If you have questions, please contact your health care provider. Indication: Head trauma Technique: Noncontrast head CT Comparison: Head CT 02/12/2021 Findings: Generalized parenchymal volume loss with periventricular hypo lucencies likely reflecting chronic small vessel ischemic change. No acute intracranial hemorrhage or mass no midline shift. No abnormal extra-axial air fluid collections are seen. Paranasal sinuses masters of stones from appear unremarkable. Impression: No acute intracranial hemorrhage or mass. Please note that all CT scans at this facility use dose modulation, iterative reconstruction, and/or weight-based dosing when appropriate to reduce radiation dose to as low as reasonably achievable. Dictated by Carlotta Wolf MD @ 09/21/2021 5:01:55 PM (Electronically Signed)
[2021-09-21] MEDS ORDERED: Potassium Chloride 20 MEQ Tab.ER PO ONE (20:37)
[2021-09-21] MEDS: traZODone 50 MG Tab PO SCH (20:58)
[2021-09-21] MEDS: Melatonin 3 MG Tab PO SCH (20:58)
[2021-09-21] MEDS: busPIRone 10 MG Tab PO SCH (20:59)
[2021-09-21] MEDS: Gabapentin 300 MG Cap PO SCH (20:59)
[2021-09-21] MEDS: Carvedilol 3.125 MG Tab PO SCH (20:59)
[2021-09-21] MEDS ORDERED: Nystatin Topical Powder 15 GM Bottle TOP SCH (21:00)
[2021-09-21] MEDS ORDERED: Carvedilol 12.5 MG Tab PO SCH (21:00)
[2021-09-22] MEDS: oxyCODONE 5 MG Tab PO PRN ×2 (08:27→22:29)
[2021-09-22] MEDS: Acetaminophen 325 MG Tab PO PRN (08:28)
[2021-09-22] MEDS: Pantoprazole 40 MG Tab.CR PO SCH ×2 (08:32→17:34)
[2021-09-22] MEDS: busPIRone 10 MG Tab PO SCH ×3 (08:32→21:35)
[2021-09-22] MEDS: Cyanocobalamin (Vitamin B12) 1,000 MCG Tab PO SCH (08:33)
[2021-09-22] MEDS: Thiamine 100 MG Tab PO SCH (08:33)
[2021-09-22] MEDS: Carvedilol 3.125 MG Tab PO SCH ×2 (08:34→21:36)
[2021-09-22] MEDS: Folic Acid 1 MG Tab PO SCH (08:34)
[2021-09-22] MEDS: Cholecalciferol (Vitamin D3) 25 MCG Tab PO SCH (08:34)
[2021-09-22] MEDS: Losartan 25 MG Tab PO SCH (08:34)
[2021-09-22] MEDS: Nystatin Topical Powder 15 GM Bottle TOP SCH ×2 (08:35→21:36)
[2021-09-22] MEDS: Furosemide 40 MG/4 ML VIAL IVPUSH SCH (08:35)
--- NOTE | 2021-09-22 11:29 | CR ---
CHEST: Portable 09/21/2021 at 1:40 PM CLINICAL HISTORY:Weakness COMPARISON:2019 FINDINGS: Heart is enlarged. Patient has a permanent cardiac pacer/defibrillator. Pulmonary vascularity is normal. There are some streaky atelectasis in both lung bases. There are atherosclerotic changes in the aorta. Impression: No acute pulmonary process Cardiomegaly Permanent cardiac pacer/defibrillator.
--- NOTE | 2021-09-22 17:39 | PCM.PN ---
- General Info Date of Service: 09/22/21 Subjective Update: Mr. Austin has been stable since admission yesterday. He admits that he had been drinking heavily for a period of time and slowly became more and more weak. He quit drinking about 6 days ago but overall strength had not improved. He is feeling somewhat better while in the hospital, but admits that he will likely require an acute rehab stay before going home. Functional Status: Reports: Tolerating Diet - Review of Systems General: Reports: Weakness, Fatigue. Denies: Fever, Chills Pulmonary: Reports: No Symptoms Cardiovascular: Reports: No Symptoms Gastrointestinal: Reports: No Symptoms Genitourinary: Reports: No Symptoms - Patient Data Vitals - Most Recent: Last Vital Signs Temp 98.4 F 09/22/21 15:00 Pulse 54 L 09/22/21 15:00 Resp 16 09/22/21 15:00 BP 103/68 09/22/21 15:00 Pulse Ox 97 09/22/21 15:00 Weight - Most Recent: 164 lb I&O - Last 24 Hours: Intake & Output 09/22/21 09/22/21 09/22/21 06:59 14:59 22:59 Intake Total 300 360 200 Output Total 525 Balance -225 360 200 Lab Results Last 24 Hours: Laboratory Results - last 24 hr 09/22/21 09/22/21 Range/Units 05:48 05:48 WBC 4.1 L (4.5-11.0) K/uL RBC 2.03 L (4.30-5.90) M/uL Hgb 7.5 L (12.0-15.0) g/dL Hct 23.2 L (40.0-54.0) % MCV 114 H (80-98) fL MCH 37 H (27-31) pg MCHC 32 (32-36) % Plt Count 91 L (150-400) K/uL Sodium 134 L (140-148) mmol/L Potassium 3.8 (3.6-5.2) mmol/L Chloride 95 L (100-108) mmol/L Carbon Dioxide 31 (21-32) mmol/L Anion Gap 11.8 (5.0-14.0) mmol/L BUN 26 H (7-18) mg/dL Creatinine 1.4 H (0.8-1.3) mg/dL Est Cr Clr Drug Dosing 49.18 mL/min Estimated GFR (MDRD) 51 L (>60) Glucose 107 H (74-106) mg/dL Calcium 8.4 L (8.5-10.1) mg/dL Magnesium 0.9 L (1.8-2.4) mg/dL Med Orders - Current: Current Medications Acetaminophen (Acetaminophen 325 Mg Tab) 650 mg PO Q4H PRN PRN Reason: Pain (Mild 1-3)/fever Last Admin: 09/22/21 08:28 Dose: 650 mg Documented by: Albuterol (Albuterol 0.083% 2.5 Mg/3 Ml Neb Soln) 2.5 mg NEB Q4H PRN PRN Reason: Shortness Of Breath/wheezing Buspirone HCl (Buspirone 10 Mg Tab) 10 mg PO TID [facility] Last Admin: 09/22/21 15:09 Dose: 10 mg Documented by: Carvedilol (Carvedilol 3.125 Mg Tab) 3.125 mg PO BID [facility] Last Admin: 09/22/21 08:34 Dose: 3.125 mg Documented by: Cholecalciferol (Cholecalciferol (Vitamin D3) 25 Mcg Tab) 25 mcg PO DAILY [facility] Last Admin: 09/22/21 08:34 Dose: 25 mcg Documented by: Cyanocobalamin (Cyanocobalamin (Vitamin B12) 1,000 Mcg Tab) 2,500 mcg PO DAILY [facility] Last Admin: 09/22/21 08:33 Dose: 2,500 mcg Documented by: Enoxaparin Sodium (Enoxaparin 40 Mg/0.4 Ml Syringe) 40 mg SUBCUT DAILY [facility] Folic Acid (Folic Acid 1 Mg Tab) 1 mg PO DAILY [facility] Last Admin: 09/22/21 08:34 Dose: 1 mg Documented by: Furosemide (Furosemide 40 Mg/4 Ml Vial) 40 mg IVPUSH DAILY [facility] Last Admin: 09/22/21 08:35 Dose: 40 mg Documented by: Gabapentin (Gabapentin 300 Mg Cap) 600 mg PO BEDTIME [facility] Last Admin: 09/21/21 20:59 Dose: 600 mg Documented by: Magnesium Sulfate 2 gm/ Premix 50 mls @ 25 mls/hr IV Q6H [facility] Stop: 09/23/21 01:29 Lorazepam (Lorazepam 2 Mg/Ml Sdv) 0.5 mg IVPUSH Q4H PRN PRN Reason: Nausea/Vomiting Losartan Potassium (Losartan 25 Mg Tab) 12.5 mg PO DAILY [facility] Last Admin: 09/22/21 08:34 Dose: 12.5 mg Documented by: Magnesium Hydroxide (Magnesium Hydroxide 400 Mg/5 Ml Susp 30 Ml Cup) 30 ml PO Q12H PRN PRN Reason: Constipation Magnesium Oxide (Magnesium Oxide 400 Mg Tab) 400 mg PO BID [facility] Melatonin (Melatonin 3 Mg Tab) 9 mg PO BEDTIME [facility] Last Admin: 09/21/21 20:58 Dose: 9 mg Documented by: Nystatin (Nystatin Topical Powder 15 Gm Bottle) 0 gm TOP BID [facility] Last Admin: 09/22/21 08:35 Dose: 1 applic Documented by: Ondansetron HCl (Ondansetron 4 Mg/2 Ml Sdv) 4 mg IV Q6H PRN PRN Reason: Nausea/Vomiting Ondansetron HCl (Ondansetron 4 Mg Tab.Dis) 4 mg PO Q6H PRN PRN Reason: Nausea able to take PO Oxycodone HCl (Oxycodone 5 Mg Tab) 5 mg PO Q4H PRN PRN Reason: Pain Last Admin: 09/22/21 08:27 Dose: 5 mg Documented by: Pantoprazole Sodium (Pantoprazole 40 Mg Tab.Cr) 40 mg PO BIDAC [facility] Last Admin: 09/22/21 08:32 Dose: 40 mg Documented by: Senna/Docusate Sodium (Docusate Sodium/Sennosides 50-8.6 Mg Tab) 1 tab PO BID PRN PRN Reason: Constipation Sodium Chloride (Sodium Chloride 0.9% 10 Ml Syringe) 10 ml FLUSH ASDIRECTED PRN PRN Reason: Keep Vein Open Last Admin: 09/21/21 14:14 Dose: 10 ml Documented by: Thiamine HCl (Thiamine 100 Mg Tab) 100 mg PO DAILY [facility] Last Admin: 09/22/21 08:33 Dose: 100 mg Documented by: Trazodone HCl (Trazodone 50 Mg Tab) 200 mg PO BEDTIME [facility] Last Admin: 09/21/21 20:58 Dose: 200 mg Documented by: Discontinued Medications Carvedilol (Carvedilol 12.5 Mg Tab) 12.5 mg PO BID [facility] Furosemide (Furosemide 40 Mg/4 Ml Vial) 40 mg IVPUSH ONETIME ONE Stop: 09/21/21 14:14 Last Admin: 09/21/21 14:18 Dose: 40 mg Documented by: Lidocaine HCl (Lidocaine 1% 20 Ml Mdv) 20 ml INJECT ONETIME ONE Stop: 09/21/21 13:59 Last Admin: 09/21/21 14:13 Dose: 20 ml Documented by: Multi-Ingred Cream/Lotion/Oil/Oint (Zinc Oxide 20% Oint 56.7 Gm Tube) 0 gm TOP ASDIRECTED ONE Stop: 09/21/21 15:31 Last Admin: 09/21/21 15:22 Dose: 1 applic Documented by: Nystatin (Nystatin Crm 15 Gm Tube) 2 gm TOP ONETIME ONE Stop: 09/21/21 14:37 Last Admin: 09/21/21 15:21 Dose: 1 applic Documented by: Nystatin (Nystatin Topical Powder 15 Gm Bottle) 0 gm TOP BID [facility] Last Admin: 09/21/21 21:02 Dose: 1 applic Documented by: Potassium Chloride (Potassium Chloride 20 Meq Tab.Er) 40 meq PO ONETIME ONE Stop: 09/21/21 20:38 Last Admin: 09/21/21 20:59 Dose: 40 meq Documented by: - Exam Quality Assessment: DVT Prophylaxis General: Alert, Oriented, Cooperative, Mild Distress Lungs: Clear to Auscultation, Normal Respiratory Effort Cardiovascular: Regular Rate, Regular Rhythm, No Murmurs GI/Abdominal Exam: Soft, Non-Tender, No Organomegaly, No Distention Extremities: Non-Tender, Pedal Edema - Patient Data Lab Results Last 24 hrs: Laboratory Results - last 24 hr 09/22/21 09/22/21 Range/Units 05:48 05:48 WBC 4.1 L (4.5-11.0) K/uL RBC 2.03 L (4.30-5.90) M/uL Hgb 7.5 L (12.0-15.0) g/dL Hct 23.2 L (40.0-54.0) % MCV 114 H (80-98) fL MCH 37 H (27-31) pg MCHC 32 (32-36) % Plt Count 91 L (150-400) K/uL Sodium 134 L (140-148) mmol/L Potassium 3.8 (3.6-5.2) mmol/L Chloride 95 L (100-108) mmol/L Carbon Dioxide 31 (21-32) mmol/L Anion Gap 11.8 (5.0-14.0) mmol/L BUN 26 H (7-18) mg/dL Creatinine 1.4 H (0.8-1.3) mg/dL Est Cr Clr Drug Dosing 49.18 mL/min Estimated GFR (MDRD) 51 L (>60) Glucose 107 H (74-106) mg/dL Calcium 8.4 L (8.5-10.1) mg/dL Magnesium 0.9 L (1.8-2.4) mg/dL Result Diagrams: 09/22/21 05:48 09/22/21 05:48 Sepsis Event Note - Evaluation Sepsis Screening Result: No Definite Risk - Focused Exam Vital Signs: Vital Signs Temp Pulse Pulse Resp BP BP Pulse Ox 09/22/21 15:00 98.4 F 54 L 16 103/68 97 09/22/21 10:57 97.1 F 76 16 96/61 94 L 09/22/21 08:34 89 125/73 09/22/21 07:00 97.3 F 89 16 125/73 95 - Problem List Review Problem List Initiated/Reviewed/Updated: Yes - My Orders Last 24 Hours: My Active Orders 09/22/21 17:30 Magnesium Oxide 400 mg PO BID Magnesium Sulfate/Water [Magnesium Sulfate in Water 2 GM/50 ML] 2 gm Premix Bag 1 bag IV Q6H 09/23/21 05:00 BASIC METABOLIC PANEL,BMP [CHEM] Timed CBC WITH AUTO DIFF [HEME] Timed MAGNESIUM [CHEM] Timed - Plan Plan:: ASSESSMENT AND PLAN - Subacute systolic congestive heart failure-improved from admission with much less peripheral edema. Echocardiogram obtained today shows an ejection fraction of approximately 35%, mild left ventricular enlargement, moderate mitral regurg itation, elevated right ventricular systolic pressure. -Reassess in a.m. -Strict intake and output monitoring with daily weights -Paez catheter for intake and output monitoring, removed tomorrow -Continue medical management including beta-abdelrahman and ARB Alcohol dependence-complicated by fatty liver/early cirrhosis and acquired pancytopenia. Last drink was about 6 days ago and there is no evidence for alcohol withdrawal at this time. He does have a 2-1 AST to ALT ratio suggestive of recent alcohol use. No evidence for alcoholic hepatitis at this time. -Supplement thiamine and folate -Encourage cessation, offered treatment resources Generalized weakness-probably related to deconditioning as well as longstanding alcohol use along with chronic medical problems. He may need subacute rehab again. CT scan of the head was unremarkable -physical therapy Hypokalemia-resolved with replacement Maintenance issues - -DVT prophylaxis- -GI prophylaxis-PPI -[id number] -Paez catheter-placed for strict intake and output monitoring CODE STATUS - full code Admission justification -this patient will be admitted for inpatient services and is medically appropriate meeting medical necessity for inpatient admission as outlined in my documentation. I reasonably expect the patient will require inpatient services that span a period time over 2 midnights. I reasonably expect this patient to be discharged or transferred within 96 hours [facility]. Disposition -I anticipate discharge home after the hospital stay Primary care physician -Dr. David Rose
[2021-09-22] MEDS: Magnesium Sulfate/Water 2 GM in Premix Bag 1 BAG IV SCH ×2 (18:54→23:15)
[2021-09-22] MEDS: Magnesium Oxide 400 MG Tab PO SCH ×2 (18:55→21:42)
[2021-09-22] MEDS: Melatonin 3 MG Tab PO SCH (21:35)
[2021-09-22] MEDS: Gabapentin 300 MG Cap PO SCH (21:35)
[2021-09-22] MEDS: traZODone 50 MG Tab PO SCH (21:35)
[2021-09-23] MEDS: oxyCODONE 5 MG Tab PO PRN ×4 (03:16→18:12)
[2021-09-23] MEDS ORDERED: Magnesium Sulfate/Water 2 GM in Premix Bag 1 BAG IV ONE (08:30)
[2021-09-23] MEDS: Pantoprazole 40 MG Tab.CR PO SCH ×2 (08:43→17:20)
[2021-09-23] MEDS: Thiamine 100 MG Tab PO SCH (08:43)
[2021-09-23] MEDS: Losartan 25 MG Tab PO SCH (08:44)
[2021-09-23] MEDS: busPIRone 10 MG Tab PO SCH ×3 (08:44→21:02)
[2021-09-23] MEDS: Carvedilol 3.125 MG Tab PO SCH ×2 (08:45→21:01)
[2021-09-23] MEDS: Furosemide 40 MG/4 ML VIAL IVPUSH SCH (08:45)
[2021-09-23] MEDS: Folic Acid 1 MG Tab PO SCH (08:45)
[2021-09-23] MEDS: Cyanocobalamin (Vitamin B12) 1,000 MCG Tab PO SCH (08:49)
[2021-09-23] MEDS: Nystatin Topical Powder 15 GM Bottle TOP SCH ×2 (08:49→21:02)
[2021-09-23] MEDS: Magnesium Oxide 400 MG Tab PO SCH ×2 (08:49→21:02)
[2021-09-23] MEDS: Cholecalciferol (Vitamin D3) 25 MCG Tab PO SCH (08:49)
[2021-09-23] MEDS: Acetaminophen 325 MG Tab PO PRN ×3 (08:57→18:11)
[2021-09-23] MEDS: Enoxaparin 40 MG/0.4 ML Syringe SUBCUT SCH ×2 (14:24→14:25)
--- NOTE | 2021-09-23 14:26 | PCM.PN ---
- General Info Date of Service: 09/23/21 Subjective Update: Mr. Austin has remained stable since yesterday. He feels shortness of breath is back to baseline and his peripheral edema has significantly improved. He remains weak but has regained some strength over the past few days. Functional Status: Reports: Tolerating Diet, Ambulating, Urinating - Review of Systems General: Reports: Weakness, Fatigue. Denies: Fever, Chills Pulmonary: Reports: No Symptoms Cardiovascular: Reports: No Symptoms Gastrointestinal: Reports: No Symptoms Genitourinary: Reports: No Symptoms - Patient Data Vitals - Most Recent: Last Vital Signs Temp 96.2 F L 09/23/21 10:22 Pulse 88 09/23/21 10:22 Resp 18 09/23/21 10:22 BP 112/81 09/23/21 10:22 Pulse Ox 99 09/23/21 10:22 Weight - Most Recent: 2.624 oz I&O - Last 24 Hours: Intake & Output 09/22/21 09/23/21 09/23/21 22:59 06:59 14:59 Intake Total 730 2050 Output Total 1050 2000 Balance -320 50 Lab Results Last 24 Hours: Laboratory Results - last 24 hr 09/23/21 09/23/21 Range/Units 05:30 05:30 WBC 3.6 L (4.5-11.0) K/uL RBC 2.09 L (4.30-5.90) M/uL Hgb 7.7 L (12.0-15.0) g/dL Hct 23.8 L (40.0-54.0) % MCV 114 H (80-98) fL MCH 37 H (27-31) pg MCHC 32 (32-36) % Plt Count 112 L (150-400) K/uL Neut % (Auto) 46.5 (36-66) % Lymph % (Auto) 18.3 L (24-44) % [place] % (Auto) 32.1 H (2-6) % Eos % (Auto) 2.3 (2-4) % Baso % (Auto) 0.8 (0-1) % Sodium 133 L (140-148) mmol/L Potassium 4.1 (3.6-5.2) mmol/L Chloride 96 L (100-108) mmol/L Carbon Dioxide 31 (21-32) mmol/L Anion Gap 10.1 (5.0-14.0) mmol/L BUN 20 H (7-18) mg/dL Creatinine 1.1 (0.8-1.3) mg/dL Est Cr Clr Drug Dosing 62.59 mL/min Estimated GFR (MDRD) > 60 (>60) Glucose 113 H (74-106) mg/dL Calcium 8.7 (8.5-10.1) mg/dL Magnesium 1.7 L D (1.8-2.4) mg/dL Med Orders - Current: Current Medications Acetaminophen (Acetaminophen 325 Mg Tab) 650 mg PO Q4H PRN PRN Reason: Pain (Mild 1-3)/fever Last Admin: 09/23/21 14:07 Dose: 650 mg Documented by: Albuterol (Albuterol 0.083% 2.5 Mg/3 Ml Neb Soln) 2.5 mg NEB Q4H PRN PRN Reason: Shortness Of Breath/wheezing Buspirone HCl (Buspirone 10 Mg Tab) 10 mg PO TID [facility] Last Admin: 09/23/21 14:04 Dose: 10 mg Documented by: Carvedilol (Carvedilol 3.125 Mg Tab) 3.125 mg PO BID [facility] Last Admin: 09/23/21 08:45 Dose: 3.125 mg Documented by: Cholecalciferol (Cholecalciferol (Vitamin D3) 25 Mcg Tab) 25 mcg PO DAILY [facility] Last Admin: 09/23/21 08:49 Dose: 25 mcg Documented by: Cyanocobalamin (Cyanocobalamin (Vitamin B12) 1,000 Mcg Tab) 2,500 mcg PO DAILY [facility] Last Admin: 09/23/21 08:49 Dose: 2,500 mcg Documented by: Enoxaparin Sodium (Enoxaparin 40 Mg/0.4 Ml Syringe) 40 mg SUBCUT Q24H [facility] Folic Acid (Folic Acid 1 Mg Tab) 1 mg PO DAILY [facility] Last Admin: 09/23/21 08:45 Dose: 1 mg Documented by: Furosemide (Furosemide 40 Mg Tab) 40 mg PO DAILY [facility] Gabapentin (Gabapentin 300 Mg Cap) 600 mg PO BEDTIME [facility] Last Admin: 09/22/21 21:35 Dose: 600 mg Documented by: Lorazepam (Lorazepam 2 Mg/Ml Sdv) 0.5 mg IVPUSH Q4H PRN PRN Reason: Nausea/Vomiting Losartan Potassium (Losartan 25 Mg Tab) 12.5 mg PO DAILY [facility] Last Admin: 09/23/21 08:44 Dose: 12.5 mg Documented by: Magnesium Hydroxide (Magnesium Hydroxide 400 Mg/5 Ml Susp 30 Ml Cup) 30 ml PO Q12H PRN PRN Reason: Constipation Magnesium Oxide (Magnesium Oxide 400 Mg Tab) 400 mg PO BID [facility] Last Admin: 09/23/21 08:49 Dose: 400 mg Documented by: Melatonin (Melatonin 3 Mg Tab) 9 mg PO BEDTIME [facility] Last Admin: 09/22/21 21:35 Dose: 9 mg Documented by: Nystatin (Nystatin Topical Powder 15 Gm Bottle) 0 gm TOP BID [facility] Last Admin: 09/23/21 08:49 Dose: 1 applic Documented by: Ondansetron HCl (Ondansetron 4 Mg/2 Ml Sdv) 4 mg IV Q6H PRN PRN Reason: Nausea/Vomiting Ondansetron HCl (Ondansetron 4 Mg Tab.Dis) 4 mg PO Q6H PRN PRN Reason: Nausea able to take PO Oxycodone HCl (Oxycodone 5 Mg Tab) 5 mg PO Q4H PRN PRN Reason: Pain Last Admin: 09/23/21 14:07 Dose: 5 mg Documented by: Pantoprazole Sodium (Pantoprazole 40 Mg Tab.Cr) 40 mg PO BIDAC [facility] Last Admin: 09/23/21 08:43 Dose: 40 mg Documented by: Senna/Docusate Sodium (Docusate Sodium/Sennosides 50-8.6 Mg Tab) 1 tab PO BID PRN PRN Reason: Constipation Sodium Chloride (Sodium Chloride 0.9% 10 Ml Syringe) 10 ml FLUSH ASDIRECTED PRN PRN Reason: Keep Vein Open Last Admin: 09/21/21 14:14 Dose: 10 ml Documented by: Thiamine HCl (Thiamine 100 Mg Tab) 100 mg PO DAILY [facility] Last Admin: 09/23/21 08:43 Dose: 100 mg Documented by: Trazodone HCl (Trazodone 50 Mg Tab) 200 mg PO BEDTIME [facility] Last Admin: 09/22/21 21:35 Dose: 200 mg Documented by: Discontinued Medications Carvedilol (Carvedilol 12.5 Mg Tab) 12.5 mg PO BID [facility] Enoxaparin Sodium (Enoxaparin 40 Mg/0.4 Ml Syringe) 40 mg SUBCUT DAILY [facility] Furosemide (Furosemide 40 Mg/4 Ml Vial) 40 mg IVPUSH ONETIME ONE Stop: 09/21/21 14:14 Last Admin: 09/21/21 14:18 Dose: 40 mg Documented by: Furosemide (Furosemide 40 Mg/4 Ml Vial) 40 mg IVPUSH DAILY [facility] Last Admin: 09/23/21 08:45 Dose: 40 mg Documented by: Magnesium Sulfate 2 gm/ Premix 50 mls @ 25 mls/hr IV Q6H [facility] Stop: 09/23/21 01:29 Last Admin: 09/22/21 23:15 Dose: 25 mls/hr Documented by: Magnesium Sulfate 2 gm/ Premix 50 mls @ 25 mls/hr IV ONETIME ONE Stop: 09/23/21 10:29 Last Admin: 09/23/21 08:43 Dose: 25 mls/hr Documented by: Lidocaine HCl (Lidocaine 1% 20 Ml Mdv) 20 ml INJECT ONETIME ONE Stop: 09/21/21 13:59 Last Admin: 09/21/21 14:13 Dose: 20 ml Documented by: Multi-Ingred Cream/Lotion/Oil/Oint (Zinc Oxide 20% Oint 56.7 Gm Tube) 0 gm TOP ASDIRECTED ONE Stop: 09/21/21 15:31 Last Admin: 09/21/21 15:22 Dose: 1 applic Documented by: Nystatin (Nystatin Crm 15 Gm Tube) 2 gm TOP ONETIME ONE Stop: 09/21/21 14:37 Last Admin: 09/21/21 15:21 Dose: 1 applic Documented by: Nystatin (Nystatin Topical Powder 15 Gm Bottle) 0 gm TOP BID [facility] Last Admin: 09/21/21 21:02 Dose: 1 applic Documented by: Potassium Chloride (Potassium Chloride 20 Meq Tab.Er) 40 meq PO ONETIME ONE Stop: 09/21/21 20:38 Last Admin: 09/21/21 20:59 Dose: 40 meq Documented by: - Exam Quality Assessment: DVT Prophylaxis General: Alert, Oriented, Cooperative, No Acute Distress Lungs: Clear to Auscultation, Normal Respiratory Effort, Decreased Breath Sounds Cardiovascular: Regular Rate, Regular Rhythm, No Murmurs GI/Abdominal Exam: Soft, Non-Tender, No Organomegaly, No Distention Extremities: Non-Tender, No Pedal Edema - Patient Data Lab Results Last 24 hrs: Laboratory Results - last 24 hr 09/23/21 09/23/21 Range/Units 05:30 05:30 WBC 3.6 L (4.5-11.0) K/uL RBC 2.09 L (4.30-5.90) M/uL Hgb 7.7 L (12.0-15.0) g/dL Hct 23.8 L (40.0-54.0) % MCV 114 H (80-98) fL MCH 37 H (27-31) pg MCHC 32 (32-36) % Plt Count 112 L (150-400) K/uL Neut % (Auto) 46.5 (36-66) % Lymph % (Auto) 18.3 L (24-44) % [place] % (Auto) 32.1 H (2-6) % Eos % (Auto) 2.3 (2-4) % Baso % (Auto) 0.8 (0-1) % Sodium 133 L (140-148) mmol/L Potassium 4.1 (3.6-5.2) mmol/L Chloride 96 L (100-108) mmol/L Carbon Dioxide 31 (21-32) mmol/L Anion Gap 10.1 (5.0-14.0) mmol/L BUN 20 H (7-18) mg/dL Creatinine 1.1 (0.8-1.3) mg/dL Est Cr Clr Drug Dosing 62.59 mL/min Estimated GFR (MDRD) > 60 (>60) Glucose 113 H (74-106) mg/dL Calcium 8.7 (8.5-10.1) mg/dL Magnesium 1.7 L D (1.8-2.4) mg/dL Result Diagrams: 09/23/21 05:30 09/23/21 05:30 Sepsis Event Note - Evaluation Sepsis Screening Result: No Definite Risk - Focused Exam Vital Signs: Vital Signs Temp Pulse Pulse Resp BP BP Pulse Ox 09/23/21 10:22 96.2 F L 88 18 112/81 99 09/23/21 08:45 59 L 120/69 09/23/21 08:44 120/59 L 09/23/21 07:00 96.7 F L 53 L 18 120/69 98 09/23/21 03:00 97.2 F 81 16 105/59 L 95 - Problem List Review Problem List Initiated/Reviewed/Updated: Yes - My Orders Last 24 Hours: My Active Orders 09/22/21 17:30 Magnesium Oxide 400 mg PO BID 09/23/21 15:00 Enoxaparin [Lovenox] 40 mg SUBCUT Q24H 09/24/21 09:00 Furosemide [Lasix] 40 mg PO DAILY - Plan Plan:: ASSESSMENT AND PLAN Subacute systolic congestive heart failure-improved from admission with much less peripheral edema. -Furosemide 40 mg p.o. daily -Strict intake and output monitoring with daily weights -Remove Paez catheter -Continue medical management including beta-abdelrahman and ARB Alcohol dependence-complicated by fatty liver/early cirrhosis and acquired pancytopenia. Last drink was about 7 days ago and there is no evidence for alcohol withdrawal at this time. -Supplement thiamine and folate -Encourage cessation, offered treatment resources Generalized weakness-probably related to deconditioning as well as longstanding alcohol use along with chronic medical problems. He may need subacute rehab again. CT scan of the head was unremarkable -physical therapy Hypokalemia-resolved with replacement Maintenance issues -DVT prophylaxis- -GI prophylaxis-PPI -[id number] -Paez catheter-placed for strict intake and output monitoring CODE STATUS - full code Admission justification -this patient will be admitted for inpatient services and is medically appropriate meeting medical necessity for inpatient admission as outlined in my documentation. I reasonably expect the patient will require inpatient services that span a period time over 2 midnights. I reasonably expect this patient to be discharged or transferred within 96 hours [facility]. Disposition -I anticipate discharge home after the hospital stay Primary care physician -Dr. Dvaid Rose
[2021-09-23] MEDS ORDERED: Enoxaparin 40 MG/0.4 ML Syringe SUBCUT SCH (15:00)
[2021-09-23] MEDS: Melatonin 3 MG Tab PO SCH (21:01)
[2021-09-23] MEDS: Gabapentin 300 MG Cap PO SCH (21:02)
[2021-09-23] MEDS: traZODone 50 MG Tab PO SCH (21:02)
[2021-09-24] MEDS: Pantoprazole 40 MG Tab.CR PO SCH (08:11)
[2021-09-24] MEDS: busPIRone 10 MG Tab PO SCH (08:11)
[2021-09-24] MEDS: Carvedilol 3.125 MG Tab PO SCH (08:11)
[2021-09-24] MEDS: oxyCODONE 5 MG Tab PO PRN (08:11)
[2021-09-24] MEDS: Magnesium Oxide 400 MG Tab PO SCH (08:12)
[2021-09-24] MEDS: Folic Acid 1 MG Tab PO SCH (08:12)
[2021-09-24] MEDS: Nystatin Topical Powder 15 GM Bottle TOP SCH (08:12)
[2021-09-24] MEDS: Losartan 25 MG Tab PO SCH (08:12)
[2021-09-24] MEDS: Cholecalciferol (Vitamin D3) 25 MCG Tab PO SCH (08:13)
[2021-09-24] MEDS: Thiamine 100 MG Tab PO SCH (08:13)
[2021-09-24] MEDS: Cyanocobalamin (Vitamin B12) 1,000 MCG Tab PO SCH (08:13)
[2021-09-24] MEDS ORDERED: Furosemide 40 MG Tab PO SCH (09:00)
[2021-09-24 10:10] VITALS: BP 114/67; PULSE 81
--- NOTE | 2021-09-24 12:35 | PCM.DCSUM1 ---
Discharge Summary - Hospital Course Brief History: Mr. Austin is a 66-year-old gentleman who was admitted through the emergency department with profound weakness and a recent fall at home. - Discharge Data Discharge Date: 09/24/21 Discharge Disposition: DC/Tfer to SNF 03 Condition: Fair - Referral to Home Health Primary Care Physician: PCP None - Discharge Diagnosis/Problem(s) (1) Congestive heart failure SNOMED Code(s): 51817364 ICD Code: I50.9 - HEART FAILURE, UNSPECIFIED Status: Chronic Current Visit: No Qualifiers: Heart failure type: combined systolic and diastolic Heart failure chronicity: acute on chronic Qualified Code(s): I50.43 - Acute on chronic combined systolic (congestive) and diastolic (congestive) heart failure (2) Weakness SNOMED Code(s): 68387046 ICD Code: R53.1 - WEAKNESS Status: Acute Current Visit: Yes (3) Elevated LFTs SNOMED Code(s): 436986192 ICD Code: R79.89 - OTHER SPECIFIED ABNORMAL FINDINGS OF BLOOD CHEMISTRY Status: Acute Current Visit: Yes (4) Anemia SNOMED Code(s): 167867384 ICD Code: D64.9 - ANEMIA, UNSPECIFIED Status: Acute Current Visit: Yes Qualifiers: Anemia type: unspecified type Qualified Code(s): D64.9 - Anemia, unspecified (5) Thrombocytopenia SNOMED Code(s): 796119989 ICD Code: D69.6 - THROMBOCYTOPENIA, UNSPECIFIED Status: Acute Current Visit: Yes (6) Cirrhosis SNOMED Code(s): 76900969 ICD Code: K74.60 - UNSPECIFIED CIRRHOSIS OF LIVER Status: Chronic Current Visit: Yes Qualifiers: Hepatic cirrhosis type: alcoholic cirrhosis Ascites presence: without ascites Qualified Code(s): K70.30 - Alcoholic cirrhosis of liver without ascites - Patient Summary/Data Consults: Consultations 09/21/21 15:56 PT Evaluation and Treatment [CONS] Routine Please Evaluate and Treat. PT Reason for Consult: Strengthening This query below is only for informational purposes and is not editable. Hospital Course: Mr. Austin presented to the emergency room with weakness. He reports this has progressed over the past 2 weeks or so. He did have a fall about 2 weeks ago and did strike the top of his head but is not quite sure if he was getting weak first or if he fell before he started getting weak. He has noticed an increase in his lower extremity edema over the past few weeks and thinks this started prior to his weakness. He has not had any fevers or chills. He does not have much of an appetite and has not been eating well for the past several weeks. He reports that he has been taking his medications as prescribed. He also reports that he has been drinking vodka daily for the past several months but did quit about 5 days prior to admission because he was too weak to get any more. He has not noticed any symptoms that raise concern for alcohol withdrawal over the pa st few days. He was too weak to get up so he was brought in by ambulance. Work- up in the emergency room has been remarkable for mild pancytopenia probably related to his chronic liver disease. He has mild increase in his creatinine and some evidence for congestive heart failure based on examination and an elevated BNP. He has some lower extremity edema with the right leg being more swollen than the left. He has received furosemide and a Paez catheter has been placed. Over the first few days of his hospital stay he did improve with increased strength, but remained very weak and required assistance with ambulation and transfers. Peripheral edema resolved with IV diuretic therapy and he was converted back to oral furosemide prior to discharge. Level of dyspnea remained stable throughout his hospitalization. Because of ongoing weakness [facility] and Occupational Therapy. Activity will be as tolerated and he will be on a low-sodium diet. - Patient Instructions Diet: Low Sodium Activity: As Tolerated Other/Special Instructions: Rebandaged great toe daily, may switch to Band-Aid with redressing tomorrow. Foam dressing coccyx area over healed previous coccyx ulcers. - Discharge Plan *PRESCRIPTION DRUG MONITORING PROGRAM REVIEWED*: Not Applicable *COPY OF PRESCRIPTION DRUG MONITORING REPORT IN PATIENT REMINGTON: Not Applicable Home Medications: Home Meds Omeprazole 20 mg PO BID 07/29/17 [History] traZODone HCl [Trazodone HCl] 200 mg PO BEDTIME 07/29/17 [History] Calcium Carbonate/Vitamin D3 [Calcium 600 + Vit D Tablet] 1 tab PO TID 06/07/19 [History] Cholecalciferol (Vitamin D3) [Vitamin D3] 1,000 unit PO DAILY 06/07/19 [History] Cyanocobalamin (Vitamin B-12) [Vitamin B12] 2,500 mcg PO DAILY 06/07/19 [History] Furosemide 1 tab PO DAILY 06/07/19 [History] Gabapentin [Neurontin] 600 mg PO BEDTIME 06/07/19 [History] Iron Polysaccharide Complex [Ferric X-150] 150 mg PO DAILY 06/07/19 [History] Multivitamin [Multivitamins] 1 tab PO DAILY 06/07/19 [History] Thiamine [Vitamin B-1] 100 mg PO DAILY 06/07/19 [History] Vitamin E 100 unit PO DAILY 06/07/19 [History] busPIRone HCl [Buspirone HCl] 10 mg PO TID 06/07/19 [History] Folic Acid 0.4 mg PO DAILY 02/12/21 [History] Losartan [Cozaar] 12.5 mg PO DAILY 02/12/21 [History] Acetaminophen 650 mg PO Q4H PRN #200 tablet 02/19/21 [Rx] Dimethicone/Zinc Oxide [Rash Relief-Zinc Oxide] 1 gm TOP Q4H PRN #1 bottle 02/19/21 [Rx] Magnesium 25 mg PO DAILY 06/10/21 [History] carvediloL [Carvedilol] 3.125 mg PO BID 09/21/21 [History] Patient Handouts: Preventing Pressure Injuries, Echocardiogram Referrals: PCP,None [Primary Care Provider] - - Discharge Summary/Plan Comment DC Time >30 min.: No Total # of Minutes for Discharge Time: 20 - Patient Data Vitals - Most Recent: Last Vital Signs Temp 97.7 F 09/24/21 10:08 Pulse 81 09/24/21 10:08 Resp 18 09/24/21 10:08 BP 114/67 09/24/21 10:08 Pulse Ox 96 09/24/21 10:08 Weight - Most Recent: 2.624 oz I&O - Last 24 hours: Intake & Output 09/23/21 09/24/21 09/24/21 22:59 06:59 14:59 Intake Total 550 720 Output Total 300 Balance 250 720 Med Orders - Current: Current Medications Acetaminophen (Acetaminophen 325 Mg Tab) 650 mg PO Q4H PRN PRN Reason: Pain (Mild 1-3)/fever Last Admin: 09/23/21 18:11 Dose: 650 mg Documented by: Albuterol (Albuterol 0.083% 2.5 Mg/3 Ml Neb Soln) 2.5 mg NEB Q4H PRN PRN Reason: Shortness Of Breath/wheezing Buspirone HCl (Buspirone 10 Mg Tab) 10 mg PO TID [facility] Last Admin: 09/24/21 08:11 Dose: 10 mg Documented by: Carvedilol (Carvedilol 3.125 Mg Tab) 3.125 mg PO BID [facility] Last Admin: 09/24/21 08:11 Dose: 3.125 mg Documented by: Cholecalciferol (Cholecalciferol (Vitamin D3) 25 Mcg Tab) 25 mcg PO DAILY [facility] Last Admin: 09/24/21 08:13 Dose: 25 mcg Documented by: Cyanocobalamin (Cyanocobalamin (Vitamin B12) 1,000 Mcg Tab) 2,500 mcg PO DAILY [facility] Last Admin: 09/24/21 08:13 Dose: 2,500 mcg Documented by: Enoxaparin Sodium (Enoxaparin 40 Mg/0.4 Ml Syringe) 40 mg SUBCUT Q24H [facility] Last Admin: 09/23/21 15:22 Dose: 40 mg Documented by: Folic Acid (Folic Acid 1 Mg Tab) 1 mg PO DAILY [facility] Last Admin: 09/24/21 08:12 Dose: 1 mg Documented by: Furosemide (Furosemide 40 Mg Tab) 40 mg PO DAILY [facility] Last Admin: 09/24/21 08:12 Dose: 40 mg Documented by: Gabapentin (Gabapentin 300 Mg Cap) 600 mg PO BEDTIME [facility] Last Admin: 09/23/21 21:02 Dose: 600 mg Documented by: Lorazepam (Lorazepam 2 Mg/Ml Sdv) 0.5 mg IVPUSH Q4H PRN PRN Reason: Nausea/Vomiting Losartan Potassium (Losartan 25 Mg Tab) 12.5 mg PO DAILY [facility] Last Admin: 09/24/21 08:12 Dose: 12.5 mg Documented by: Magnesium Hydroxide (Magnesium Hydroxide 400 Mg/5 Ml Susp 30 Ml Cup) 30 ml PO Q12H PRN PRN Reason: Constipation Magnesium Oxide (Magnesium Oxide 400 Mg Tab) 400 mg PO BID [facility] Last Admin: 09/24/21 08:12 Dose: 400 mg Documented by: Melatonin (Melatonin 3 Mg Tab) 9 mg PO BEDTIME [facility] Last Admin: 09/23/21 21:01 Dose: 9 mg Documented by: Nystatin (Nystatin Topical Powder 15 Gm Bottle) 0 gm TOP BID [facility] Last Admin: 09/24/21 08:12 Dose: 1 applic Documented by: Ondansetron HCl (Ondansetron 4 Mg/2 Ml Sdv) 4 mg IV Q6H PRN PRN Reason: Nausea/Vomiting Ondansetron HCl (Ondansetron 4 Mg Tab.Dis) 4 mg PO Q6H PRN PRN Reason: Nausea able to take PO Oxycodone HCl (Oxycodone 5 Mg Tab) 5 mg PO Q4H PRN PRN Reason: Pain Last Admin: 09/24/21 08:11 Dose: 5 mg Documented by: Pantoprazole Sodium (Pantoprazole 40 Mg Tab.Cr) 40 mg PO BIDAC [facility] Last Admin: 09/24/21 08:11 Dose: 40 mg Documented by: Senna/Docusate Sodium (Docusate Sodium/Sennosides 50-8.6 Mg Tab) 1 tab PO BID PRN PRN Reason: Constipation Sodium Chloride (Sodium Chloride 0.9% 10 Ml Syringe) 10 ml FLUSH ASDIRECTED PRN PRN Reason: Keep Vein Open Last Admin: 09/21/21 14:14 Dose: 10 ml Documented by: Thiamine HCl (Thiamine 100 Mg Tab) 100 mg PO DAILY [facility] Last Admin: 09/24/21 08:13 Dose: 100 mg Documented by: Trazodone HCl (Trazodone 50 Mg Tab) 200 mg PO BEDTIME [facility] Last Admin: 09/23/21 21:02 Dose: 200 mg Documented by: Discontinued Medications Carvedilol (Carvedilol 12.5 Mg Tab) 12.5 mg PO BID [facility] Enoxaparin Sodium (Enoxaparin 40 Mg/0.4 Ml Syringe) 40 mg SUBCUT DAILY [facility] Last Admin: 09/23/21 14:25 Dose: Not Given Documented by: Furosemide (Furosemide 40 Mg/4 Ml Vial) 40 mg IVPUSH ONETIME ONE Stop: 09/21/21 14:14 Last Admin: 09/21/21 14:18 Dose: 40 mg Documented by: Furosemide (Furosemide 40 Mg/4 Ml Vial) 40 mg IVPUSH DAILY [facility] Last Admin: 09/23/21 08:45 Dose: 40 mg Documented by: Magnesium Sulfate 2 gm/ Premix 50 mls @ 25 mls/hr IV Q6H [facility] Stop: 09/23/21 01:29 Last Admin: 09/22/21 23:15 Dose: 25 mls/hr Documented by: Magnesium Sulfate 2 gm/ Premix 50 mls @ 25 mls/hr IV ONETIME ONE Stop: 09/23/21 10:29 Last Admin: 09/23/21 08:43 Dose: 25 mls/hr Documented by: Lidocaine HCl (Lidocaine 1% 20 Ml Mdv) 20 ml INJECT ONETIME ONE Stop: 09/21/21 13:59 Last Admin: 09/21/21 14:13 Dose: 20 ml Documented by: Multi-Ingred Cream/Lotion/Oil/Oint (Zinc Oxide 20% Oint 56.7 Gm Tube) 0 gm TOP ASDIRECTED ONE Stop: 09/21/21 15:31 Last Admin: 09/21/21 15:22 Dose: 1 applic Documented by: Nystatin (Nystatin Crm 15 Gm Tube) 2 gm TOP ONETIME ONE Stop: 09/21/21 14:37 Last Admin: 09/21/21 15:21 Dose: 1 applic Documented by: Nystatin (Nystatin Topical Powder 15 Gm Bottle) 0 gm TOP BID [facility] Last Admin: 09/21/21 21:02 Dose: 1 applic Documented by: Potassium Chloride (Potassium Chloride 20 Meq Tab.Er) 40 meq PO ONETIME ONE Stop: 09/21/21 20:38 Last Admin: 09/21/21 20:59 Dose: 40 meq Documented by: - Exam General: Reports: Alert, Oriented, Cooperative, No Acute Distress Lungs: Reports: Clear to Auscultation, Normal Respiratory Effort Cardiovascular: Reports: Regular Rate, Regular Rhythm, No Murmurs GI/Abdominal Exam: Soft, Non-Tender, No Organomegaly, No Distention Extremities: Non-Tender, No Pedal Edema
== END 2021-09-24 13:15 ==
LOC: JP.ED 11:36 → INTOOBSV 15:23 → JP.MS 15:23
PROVIDERS: ADMIT Internal Medicine; ATTEND Hospitalist
DX: I13.0 Hypertensive heart and chronic kidney disease with heart failure and stage 1 through stage 4 chronic kidney disease, or unspecified chronic kidney disease (principal); I50.9 Heart failure, unspecified; E87.6 Hypokalemia; R53.1 Weakness; D69.6 Thrombocytopenia, unspecified; R79.89 Other specified abnormal findings of blood chemistry; F10.20 Alcohol dependence, uncomplicated; D64.9 Anemia, unspecified; H54.7 Unspecified visual loss; I42.9 Cardiomyopathy, unspecified; K21.9 Gastro-esophageal reflux disease without esophagitis; I25.10 Atherosclerotic heart disease of native coronary artery without angina pectoris; N18.9 Chronic kidney disease, unspecified; M19.90 Unspecified osteoarthritis, unspecified site; F41.9 Anxiety disorder, unspecified; E66.9 Obesity, unspecified; G40.909 Epilepsy, unspecified, not intractable, without status epilepticus; Z79.899 Other long term (current) drug therapy; Z95.810 Presence of automatic (implantable) cardiac defibrillator; Y90.9 Presence of alcohol in blood, level not specified; Z20.822 Contact with and (suspected) exposure to COVID-19
CPT/HCPCS: 11730; 36415; 51702; 70450; 71045; 80048; 80053; 80307; 81001; 82140; 83735; 83880; 85025; 85027; 86140; 93005; 93306; 96374; 97110; 97161; 97530; 99285; A9270; G0378; J1650; J1940; J3475; U0002

== ENCOUNTER 2022-02-02 17:55 | Inpatient (IN) | payer MEDICARE, MEDICAID ==
[2022-02-02] MEDS ORDERED: Sodium Chloride 0.9% 10 ML Syringe FLUSH PRN (18:04)
[2022-02-02] MEDS ORDERED: Lactated Ringers 500 ML IV ONE (18:50)
[2022-02-02 19:03] LABS: CORONAVIRUS COVID-19 NAA NEGATIVE (NEGATIVE)
[2022-02-02] MEDS ORDERED: LORazepam 2 MG/ML SDV IVPUSH PRN (21:07)
[2022-02-02] MEDS ORDERED: cefTRIAXone 1 GM in Sodium Chloride 0.9% 50 ML IV ONE (21:07)
[2022-02-02] MEDS ORDERED: Acetaminophen 325 MG Tab PO PRN (21:07)
[2022-02-02] MEDS ORDERED: Magnesium Hydroxide 400 MG/5 ML Susp 30 ML Cup PO PRN (21:07)
[2022-02-02] MEDS ORDERED: Ondansetron 4 MG/2 ML SDV IV PRN (21:07)
[2022-02-02] MEDS ORDERED: Ondansetron 4 MG Tab.DIS PO PRN (21:07)
[2022-02-02] MEDS: traZODone 50 MG Tab PO SCH (22:13)
[2022-02-02] MEDS: busPIRone 10 MG Tab PO SCH (22:14)
[2022-02-02] MEDS: Gabapentin 300 MG Cap PO SCH (22:14)
[2022-02-02] MEDS: Carvedilol 3.125 MG Tab PO SCH (22:14)
[2022-02-02] MEDS: Pantoprazole 40 MG Tab.CR PO SCH (22:14)
[2022-02-02] MEDS: Sodium Chloride 0.9% 1,000 ML IV SCH (22:18)
[2022-02-03] MEDS: Sodium Chloride 0.9% 1,000 ML IV SCH (07:17)
[2022-02-03] MEDS: Carvedilol 3.125 MG Tab PO SCH ×2 (08:52→16:10)
[2022-02-03] MEDS: Pantoprazole 40 MG Tab.CR PO SCH ×2 (08:52→16:10)
[2022-02-03] MEDS: Multivitamins with Iron/Calcium/Folic Acid/Minerals Tab PO SCH (08:54)
[2022-02-03] MEDS: busPIRone 10 MG Tab PO SCH ×3 (08:54→21:10)
[2022-02-03] MEDS: Cyanocobalamin (Vitamin B12) 1,000 MCG Tab PO SCH (08:54)
[2022-02-03] MEDS: Folic Acid 1 MG Tab PO SCH (08:54)
[2022-02-03] MEDS: Thiamine 100 MG Tab PO SCH (08:54)
[2022-02-03] MEDS: Cholecalciferol (Vitamin D3) 25 MCG Tab PO SCH (08:54)
[2022-02-03] MEDS: Magnesium Sulfate/Water 2 GM in Premix Bag 1 BAG IV SCH ×3 (09:53→21:10)
[2022-02-03] MEDS: Gabapentin 300 MG Cap PO SCH (21:10)
[2022-02-03] MEDS: traZODone 50 MG Tab PO SCH (21:10)
[2022-02-04] MEDS: Magnesium Sulfate/Water 2 GM in Premix Bag 1 BAG IV SCH (03:28)
[2022-02-04] MEDS: Multivitamins with Iron/Calcium/Folic Acid/Minerals Tab PO SCH (08:15)
[2022-02-04] MEDS: Pantoprazole 40 MG Tab.CR PO SCH (08:15)
[2022-02-04] MEDS: Cyanocobalamin (Vitamin B12) 1,000 MCG Tab PO SCH (08:15)
[2022-02-04] MEDS: Thiamine 100 MG Tab PO SCH (08:15)
[2022-02-04] MEDS: Cholecalciferol (Vitamin D3) 25 MCG Tab PO SCH (08:15)
[2022-02-04] MEDS: Folic Acid 1 MG Tab PO SCH (08:16)
[2022-02-04] MEDS: Carvedilol 3.125 MG Tab PO SCH (08:16)
[2022-02-04] MEDS: busPIRone 10 MG Tab PO SCH (08:16)
[2022-02-04 10:05] VITALS: BP 133/61; PULSE 105
== END 2022-02-04 14:16 | disposition home health service (06) | DRG 683 ==
LOC: JP.ED 17:55 → JP.MS 19:52
PROVIDERS: ADMIT Internal Medicine; ATTEND Internal Medicine
DX: N17.9 Acute kidney failure, unspecified (principal); R53.1 Weakness; E87.1 Hypo-osmolality and hyponatremia; I50.9 Heart failure, unspecified; E86.0 Dehydration; Z91.81 History of falling; D69.6 Thrombocytopenia, unspecified; D64.9 Anemia, unspecified; I50.22 Chronic systolic (congestive) heart failure; K70.30 Alcoholic cirrhosis of liver without ascites; I25.10 Atherosclerotic heart disease of native coronary artery without angina pectoris; I42.9 Cardiomyopathy, unspecified; I95.9 Hypotension, unspecified; H54.7 Unspecified visual loss; K21.9 Gastro-esophageal reflux disease without esophagitis; N18.9 Chronic kidney disease, unspecified; M19.90 Unspecified osteoarthritis, unspecified site; F41.9 Anxiety disorder, unspecified; E66.9 Obesity, unspecified; I49.9 Cardiac arrhythmia, unspecified; Z96.649 Presence of unspecified artificial hip joint; Z98.890 Other specified postprocedural states; Z79.899 Other long term (current) drug therapy; Z95.810 Presence of automatic (implantable) cardiac defibrillator; Z20.822 Contact with and (suspected) exposure to COVID-19; R29.6 Repeated falls; E86.9 Volume depletion, unspecified
CPT/HCPCS: 0241U; 36415; 71046; 80048; 80053; 81001; 82140; 83605; 83690; 83735; 84145; 84300; 85025; 85027; 85610; 85730; 86140; 93005; 93010; 97110-GP; 97162-GP; 97165-GO; 97530-GP; 99283; 99285-25; A9270-GY; J0696; J3475; J7030; J7120

== ENCOUNTER 2022-06-12 11:31 | Emergency (ER) | payer MEDICARE, MEDICAID ==
[2022-06-12] MEDS ORDERED: Bacitracin Oint 1 GM U/D Packet TOP ONE (11:42)
[2022-06-12 12:55] VITALS: BP 128/87; PULSE 79
== END 2022-06-12 14:43 | disposition home or self-care (01) ==
LOC: JP.ED 11:31
DX: S00.11XA Contusion of right eyelid and periocular area, initial encounter (principal); S40.021A Contusion of right upper arm, initial encounter; S80.811A Abrasion, right lower leg, initial encounter; S80.812A Abrasion, left lower leg, initial encounter; I25.10 Atherosclerotic heart disease of native coronary artery without angina pectoris; K21.9 Gastro-esophageal reflux disease without esophagitis; N18.9 Chronic kidney disease, unspecified; W07.XXXA Fall from chair, initial encounter
CPT/HCPCS: 99283

== ENCOUNTER 2022-06-22 20:34 | Emergency (ER) | payer MEDICARE, MEDICAID ==
[2022-06-22 21:24] LABS: ESTIMATED GFR 67 mL/min (>60)
[2022-06-22] MEDS ORDERED: Phosphorus #1 250 MG Tab PO ONE (23:26)
[2022-06-22] MEDS ORDERED: Magnesium Sulfate/Water 2 GM in Premix Bag 1 BAG IV ONE (23:26)
[2022-06-22] MEDS ORDERED: Levofloxacin 500 MG Tab PO ONE (23:27)
[2022-06-22] MEDS ORDERED: Potassium Chloride 20 MEQ Tab.ER PO ONE (23:27)
[2022-06-22] MEDS ORDERED: Potassium Phosphates 20 MMOLE in Sodium Chloride 0.9% 250 ML IV SCH (23:45)
[2022-06-23] MEDS ORDERED: Thiamine 100 MG Tab PO ONE (00:05)
[2022-06-23 02:14] VITALS: BP 108/67; PULSE 91
== END 2022-06-23 07:33 | disposition home or self-care (01) ==
LOC: JP.ED 20:34
DX: J18.9 Pneumonia, unspecified organism (principal); F10.920 Alcohol use, unspecified with intoxication, uncomplicated; G62.9 Polyneuropathy, unspecified; E87.6 Hypokalemia; E83.42 Hypomagnesemia; D69.6 Thrombocytopenia, unspecified; I50.9 Heart failure, unspecified; Z79.899 Other long term (current) drug therapy
CPT/HCPCS: 36415; 71045; 80053; 80307; 81001; 82550; 82607; 82746; 83735; 83880; 84100; 84443; 85025; 85610; 85730; 96365; 96366; 99284; A9270; J3475; 99283

== ENCOUNTER 2022-07-12 13:53 | Emergency (ER) | payer MEDICARE, MEDICAID ==
[2022-07-12 14:03] VITALS: BP 129/85; PULSE 95
== END 2022-07-12 16:59 | disposition home or self-care (01) ==
LOC: JP.ED 13:53
DX: F10.129 Alcohol abuse with intoxication, unspecified (principal); I13.0 Hypertensive heart and chronic kidney disease with heart failure and stage 1 through stage 4 chronic kidney disease, or unspecified chronic kidney disease; N18.9 Chronic kidney disease, unspecified; I50.9 Heart failure, unspecified; K21.9 Gastro-esophageal reflux disease without esophagitis; Z95.810 Presence of automatic (implantable) cardiac defibrillator; Z79.899 Other long term (current) drug therapy; Y90.8 Blood alcohol level of 240 mg/100 ml or more
CPT/HCPCS: 36415; 80048; 80307; 81001; 85025; 99285

== ENCOUNTER 2022-07-17 16:33 | Emergency (ER) | payer MEDICARE, MEDICAID ==
[2022-07-17 19:14] LABS: ESTIMATED GFR 25 mL/min (>60)
[2022-07-17 19:21] LABS: TROPONIN I HIGH SENSITIVITY 105.3 pg/mL (<=60.3)
[2022-07-17] MEDS ORDERED: Sodium Chloride 0.9% 10 ML Syringe FLUSH PRN (19:43)
[2022-07-17] MEDS ORDERED: Sodium Chloride 0.9% 1,000 ML IV SCH (19:45)
[2022-07-17] MEDS ORDERED: Aspirin 81 MG Tab.Chew PO ONE (21:23)
[2022-07-17] MEDS ORDERED: Furosemide 20 MG/2 ML VIAL IVPUSH ONE (21:40)
[2022-07-17 23:12] VITALS: BP 129/81; PULSE 83
== END 2022-07-18 00:07 ==
LOC: JP.ED 16:33
DX: I11.0 Hypertensive heart disease with heart failure (principal); I50.9 Heart failure, unspecified; E83.42 Hypomagnesemia; N17.9 Acute kidney failure, unspecified; E86.0 Dehydration; D69.6 Thrombocytopenia, unspecified; K21.9 Gastro-esophageal reflux disease without esophagitis; F10.10 Alcohol abuse, uncomplicated; Z20.822 Contact with and (suspected) exposure to COVID-19; Z79.899 Other long term (current) drug therapy; Y90.3 Blood alcohol level of 60-79 mg/100 ml
CPT/HCPCS: 36415; 71045; 80053; 80307; 81001; 82272; 82550; 83735; 83880; 84484; 85025; 93005; 96374; 99285; A9270; J1940; J3490; J7030; U0002

== ENCOUNTER 2023-03-09 18:55 | Observation (INO) | payer MEDICARE, MEDICAID ==
[2023-03-09] MEDS ORDERED: Sodium Chloride 0.9% 500 ML IV SCH (20:00)
[2023-03-09] MEDS ORDERED: Cyanocobalamin (Vitamin B12) 1,000 MCG/ML SDV SUBCUT ONE (21:54)
[2023-03-09] MEDS ORDERED: traZODone 50 MG Tab PO PRN (21:58)
[2023-03-09] MEDS ORDERED: Gabapentin 300 MG Cap ONE (22:22)
[2023-03-09] MEDS ORDERED: busPIRone 10 MG Tab ONE (22:22)
[2023-03-09] MEDS ORDERED: Digoxin 125 MCG Tab ONE (22:22)
[2023-03-09 22:23] LABS: CORONAVIRUS COVID-19 NAA NEGATIVE (NEGATIVE)
[2023-03-09] MEDS ORDERED: Folic Acid 1 MG Tab ONE (22:23)
[2023-03-09] MEDS ORDERED: Cyanocobalamin (Vitamin B12) 1,000 MCG Tab ONE (22:28)
[2023-03-09] MEDS ORDERED: Cholecalciferol (Vitamin D3) 25 MCG Tab ONE (22:28)
[2023-03-09] MEDS: busPIRone 10 MG Tab PO SCH (22:59)
[2023-03-09] MEDS: DIGOXIN 125 MCG PO SCH (22:59)
[2023-03-09] MEDS: Gabapentin 300 MG Cap*POM PO SCH (22:59)
[2023-03-09] MEDS: Folic Acid 1 MG Tab PO SCH (22:59)
[2023-03-09] MEDS: Cholecalciferol (Vitamin D3) 25 MCG Tab PO SCH (23:00)
[2023-03-09] MEDS: Cyanocobalamin (Vitamin B12) 1,000 MCG Tab PO SCH (23:05)
[2023-03-09] MEDS ORDERED: Ondansetron 4 MG Tab.DIS PO PRN (23:23)
[2023-03-09] MEDS ORDERED: Enoxaparin 30 MG/0.3 ML Syringe SUBCUT SCH (23:23)
[2023-03-09] MEDS ORDERED: Melatonin 3 MG Tab PO PRN (23:23)
[2023-03-09] MEDS ORDERED: Ondansetron 4 MG/2 ML SDV IV PRN (23:23)
[2023-03-09] MEDS ORDERED: Magnesium Hydroxide 400 MG/5 ML Susp 30 ML Cup PO PRN (23:23)
[2023-03-09] MEDS ORDERED: Acetaminophen 325 MG Tab PO PRN (23:23)
[2023-03-09] MEDS: Sodium Chloride 0.9% 1,000 ML IV SCH (23:53)
[2023-03-10 05:45] LABS: ESTIMATED GFR 21 mL/min (>60)
[2023-03-10] MEDS: Sodium Chloride 0.9% 1,000 ML IV SCH (08:00)
[2023-03-10] MEDS: Pantoprazole 40 MG Tab.CR PO SCH (08:02)
[2023-03-10] MEDS: Cholecalciferol (Vitamin D3) 25 MCG Tab PO SCH (08:07)
[2023-03-10] MEDS: Thiamine 100 MG Tab PO SCH (08:07)
[2023-03-10] MEDS: Cyanocobalamin (Vitamin B12) 1,000 MCG Tab PO SCH (08:07)
[2023-03-10] MEDS: busPIRone 10 MG Tab PO SCH ×3 (08:54→20:04)
[2023-03-10] MEDS: Ferrous Sulfate 325 MG Tab PO SCH ×2 (08:54→16:32)
[2023-03-10] MEDS: Magnesium Oxide 400 MG Tab PO SCH (08:55)
[2023-03-10] MEDS ORDERED: Potassium Chloride 20 MEQ Tab.ER PO SCH (09:00)
[2023-03-10] MEDS ORDERED: Metoprolol Succinate 50 MG Tab.ER PO SCH (09:00)
[2023-03-10] MEDS ORDERED: Furosemide 40 MG Tab PO SCH (09:00)
[2023-03-10] MEDS: DIGOXIN 125 MCG PO SCH (13:22)
[2023-03-10] MEDS ORDERED: TRAZODONE 100 MG PO PRN (14:00)
[2023-03-10] MEDS: VITAMIN E 100 UNIT PO SCH (15:02)
[2023-03-10] MEDS: Folic Acid 1 MG Tab PO SCH (20:04)
[2023-03-10] MEDS: Gabapentin 300 MG Cap*POM PO SCH (20:04)
[2023-03-11] MEDS: Pantoprazole 40 MG Tab.CR PO SCH (06:48)
[2023-03-11] MEDS: Magnesium Oxide 400 MG Tab PO SCH (08:03)
[2023-03-11] MEDS: busPIRone 10 MG Tab PO SCH (08:03)
[2023-03-11] MEDS: Cholecalciferol (Vitamin D3) 25 MCG Tab PO SCH (08:03)
[2023-03-11] MEDS: Thiamine 100 MG Tab PO SCH (08:03)
[2023-03-11] MEDS: Ferrous Sulfate 325 MG Tab PO SCH (08:03)
[2023-03-11] MEDS: Cyanocobalamin (Vitamin B12) 1,000 MCG Tab PO SCH (08:03)
[2023-03-11] MEDS: VITAMIN E 100 UNIT PO SCH (08:04)
[2023-03-11] MEDS ORDERED: METOPROLOL SUCCINATE 100 MG PO SCH (09:00)
[2023-03-11 10:01] VITALS: BP 168/83; PULSE 76
[2023-03-11] MEDS: DIGOXIN 125 MCG PO SCH ×2 (11:50→12:01)
== END 2023-03-11 14:05 | disposition home or self-care (01) ==
LOC: JP.ED 18:55 → JP.MS 21:44
PROVIDERS: ADMIT Registered Nurse; ATTEND Hospitalist
DX: N17.9 Acute kidney failure, unspecified (principal); G62.9 Polyneuropathy, unspecified; D63.1 Anemia in chronic kidney disease; I13.0 Hypertensive heart and chronic kidney disease with heart failure and stage 1 through stage 4 chronic kidney disease, or unspecified chronic kidney disease; I50.43 Acute on chronic combined systolic (congestive) and diastolic (congestive) heart failure; N18.9 Chronic kidney disease, unspecified; M19.90 Unspecified osteoarthritis, unspecified site; F41.9 Anxiety disorder, unspecified; K70.10 Alcoholic hepatitis without ascites; R29.6 Repeated falls; R53.1 Weakness; K76.9 Liver disease, unspecified; Z79.899 Other long term (current) drug therapy; Z98.890 Other specified postprocedural states; Z20.822 Contact with and (suspected) exposure to COVID-19; W19.XXXA Unspecified fall, initial encounter
CPT/HCPCS: 0241U; 36415; 80048; 80053; 80307; 81001; 82550; 85025; 85730; 96360; 96361; 97110-GO; 97161-GP; 97165-GO; 97530-GP; 99222; 99232; 99238; 99285; A9270-GY; G0378; J7030

== ENCOUNTER 2023-03-29 10:50 | Inpatient (IN) | payer MEDICARE, MEDICAID ==
[2023-03-29] MEDS ORDERED: fentaNYL 100 MCG/2 ML SDV IVPUSH ONE (11:28)
[2023-03-29] MEDS ORDERED: Lactated Ringers 1,000 ML IV SCH (11:30)
[2023-03-29] MEDS ORDERED: metroNIDAZOLE/Normal Saline 500 MG in Premix Bag 1 BAG IV SCH (11:30)
[2023-03-29 11:59] LABS: BASOPHILS PERCENT AUTO 0.2 % (0.1-1.3); EOSINOPHILS PERCENT AUTO 0.1 % (0.0-5.4); HEMATOCRIT 22.7 % (38.4-49.7); HEMOGLOBIN 7.5 g/dL (12.9-16.9); IMMATURE GRAN ABSOLUTE AUTO 0.03 K/uL (0.00-0.23); IMMATURE GRAN PERCENT AUTO 0.4 % (0.0-0.7); LYMPHOCYTES ABSOLUTE AUTO 0.48 K/uL (0.8-3.3); MEAN CORPUSCULAR HEMOGLOBIN 36.1 pg (31.6-35.5); MEAN CORPUSCULAR VOLUME 109.1 fL (81.4-99.0); MONOCYTES PERCENT AUTO 14.9 % (3.3-12.6); NEUTROPHILS ABSOLUTE AUTO 6.31 K/uL (1.0-7.6); NEUTROPHILS PERCENT AUTO 78.4 % (40.0-78.1); PLATELET COUNT,PLT 240 K/uL (130-375); RED BLOOD CELL COUNT 2.08 M/uL (4.14-5.76); WHITE BLOOD CELL COUNT,WBC 8.1 K/uL (3.2-11.0)
[2023-03-29] MEDS ORDERED: Vancomycin 1 GM SDV IV SCH (12:00)
[2023-03-29 12:04] LABS: BASOPHILS ABSOLUTE AUTO 0.02 K/uL (0.00-0.10); EOSINOPHILS ABSOLUTE AUTO 0.01 K/uL (0.00-0.40)
[2023-03-29 12:30] LABS: LACTIC ACID 1.5 mmol/L (0.4-2.0)
[2023-03-29 12:33] LABS: A/G RATIO 0.6 (1.2-2.2); ALANINE AMINOTRANSFERASE,ALT 20 U/L (12-78); ALBUMIN 2.4 g/dL (3.4-5.0); ALKALINE PHOSPHATASE 78 U/L (46-116); ASPARTATE AMNIOTRANSFERASE,AST 30 U/L (15-37); BLOOD UREA NITROGEN,BUN 32 mg/dL (7-18); C-REACTIVE PROTEIN 23.57 mg/dL (0.0-0.3); CALCIUM 8.8 mg/dL (8.5-10.1); CARBON DIOXIDE,CO2 26 mmol/L (21-32); CHLORIDE,CL 97 mmol/L (100-108); CREATININE 1.3 mg/dL (0.8-1.3); EST CRCL DRUG DOSING (CG) 47.76 mL/min; ESTIMATED GFR 60 mL/min (>60); GLUCOSE RANDOM 129 mg/dL (74-106); POTASSIUM,K 3.9 mmol/L (3.6-5.2); PROTEIN TOTAL,TP 6.5 g/dL (6.4-8.2); SODIUM,NA 132 mmol/L (140-148)
[2023-03-29 12:34] LABS: ANION GAP 12.9 mmol/L (5.0-14.0)
[2023-03-29 13:31] LABS: APPEARANCE,URINE CLEAR (CLEAR); BILIRUBIN,URINE NEGATIVE (NEGATIVE); COLOR,URINE YELLOW (YELLOW); GLUCOSE,URINE NEGATIVE (NEGATIVE); KETONES,URINE NEGATIVE (NEGATIVE); LEUKOCYTE ESTERASE,URINE NEGATIVE (NEGATIVE); NITRITE,URINE NEGATIVE (NEGATIVE); OCCULT BLOOD,URINE SMALL (NEGATIVE); PROTEIN,URINE 30 mg/dL (NEGATIVE)
[2023-03-29 13:41] LABS: WBC,URINE 0-5 (0-5)
[2023-03-29 13:42] LABS: AMORPHOUS SEDIMENT,URINE RARE; BACTERIA,URINE FEW; EPITHELIAL CELLS,URINE RARE; MUCUS,URINE RARE
[2023-03-29] MEDS ORDERED: Magnesium Hydroxide 400 MG/5 ML Susp 30 ML Cup PO PRN (16:42)
[2023-03-29] MEDS ORDERED: Ondansetron 4 MG Tab.DIS PO PRN (16:42)
[2023-03-29] MEDS ORDERED: HYDROmorphone 1 MG/ML Syringe IVPUSH PRN (16:42)
[2023-03-29] MEDS ORDERED: Sodium Chloride 0.9% 1,000 ML IV SCH (16:42)
[2023-03-29] MEDS ORDERED: Ondansetron 4 MG/2 ML SDV IV PRN (16:42)
[2023-03-29] MEDS ORDERED: Melatonin 3 MG Tab PO PRN (16:42)
[2023-03-29] MEDS ORDERED: HYDROmorphone 0.5 MG/0.5 ML Syringe IVPUSH PRN (16:45)
[2023-03-29] MEDS: oxyCODONE 5 MG Tab PO PRN (17:59)
[2023-03-29] MEDS: Enoxaparin 40 MG/0.4 ML Syringe SUBCUT SCH (18:00)
[2023-03-29] MEDS: Gabapentin 300 MG Cap PO SCH (20:52)
[2023-03-29] MEDS: busPIRone 10 MG Tab PO SCH (20:52)
[2023-03-29] MEDS: Lactobacillus Rhamnosus GG (Probiotic) Cap PO SCH (20:53)
[2023-03-29] MEDS: Acetaminophen 325 MG Tab PO PRN (20:57)
[2023-03-29] MEDS ORDERED: BUSPIRONE HCL 7.5 MG PO SCH (21:00)
[2023-03-29] MEDS ORDERED: Non-Formulary Medication 1 Each (Trazodone Hcl [Trazodone Hcl] 100 MG Tablet) PO SCH (21:00)
[2023-03-30 05:17] LABS: HEMATOCRIT 21.9 % (38.4-49.7); HEMOGLOBIN 7.2 g/dL (12.9-16.9); MEAN CORPUSCULAR HEMOGLOBIN 36.2 pg (31.6-35.5); MEAN CORPUSCULAR HGB CONC 32.9 g/dL (31.6-35.5); MEAN CORPUSCULAR VOLUME 110.1 fL (81.4-99.0); RED BLOOD CELL COUNT 1.99 M/uL (4.14-5.76); WHITE BLOOD CELL COUNT,WBC 5.7 K/uL (3.2-11.0)
[2023-03-30 05:55] LABS: IRON,FE 15 ug/dL (65-175); PERCENT FE SATURATION 10 % (20-55); TOTAL IRON BINDING CAPACITY 154 ug/dl (250-450)
[2023-03-30 06:17] LABS: CALCIUM 8.2 mg/dL (8.5-10.1); CREATININE 1.1 mg/dL (0.8-1.3); EST CRCL DRUG DOSING (CG) 56.44 mL/min; POTASSIUM,K 3.5 mmol/L (3.6-5.2)
[2023-03-30 07:07] LABS: ANION GAP 11.5 mmol/L (5.0-14.0)
[2023-03-30 07:08] LABS: FOLIC ACID 42.9 ng/ml (8.6-58.9)
[2023-03-30] MEDS: Pantoprazole 40 MG Tab.CR PO SCH (08:43)
[2023-03-30] MEDS: Thiamine 100 MG Tab PO SCH (08:44)
[2023-03-30] MEDS: Lactobacillus Rhamnosus GG (Probiotic) Cap PO SCH ×2 (08:44→20:08)
[2023-03-30] MEDS: busPIRone 10 MG Tab PO SCH ×3 (08:44→20:07)
[2023-03-30] MEDS: Metoprolol Succinate 50 MG Tab.ER PO SCH (08:44)
[2023-03-30] MEDS: Folic Acid 1 MG Tab PO SCH (08:44)
[2023-03-30] MEDS: Cyanocobalamin (Vitamin B12) 1,000 MCG Tab PO SCH (08:45)
[2023-03-30] MEDS: oxyCODONE 5 MG Tab PO PRN ×3 (08:52→22:37)
[2023-03-30] MEDS ORDERED: Non-Formulary Medication 1 Each (Metoprolol Succinate [Metoprolol Succinate] 100 MG Tab.Er PO SCH (09:00)
[2023-03-30] MEDS ORDERED: Potassium Chloride 20 MEQ Tab.ER PO ONE (10:30)
[2023-03-30] MEDS: Digoxin 125 MCG Tab PO SCH (13:53)
[2023-03-30] MEDS: Enoxaparin 40 MG/0.4 ML Syringe SUBCUT SCH (17:24)
[2023-03-30] MEDS: Acetaminophen 325 MG Tab PO PRN (19:19)
[2023-03-30] MEDS: Gabapentin 300 MG Cap PO SCH (20:08)
[2023-03-30] MEDS: traZODone 50 MG Tab PO SCH (20:55)
[2023-03-31] MEDS: oxyCODONE 5 MG Tab PO PRN ×3 (02:19→13:46)
[2023-03-31] MEDS: Pantoprazole 40 MG Tab.CR PO SCH (07:56)
[2023-03-31] MEDS: Acetaminophen 325 MG Tab PO PRN (07:56)
[2023-03-31] MEDS: Metoprolol Succinate 50 MG Tab.ER PO SCH (08:00)
[2023-03-31] MEDS: Cyanocobalamin (Vitamin B12) 1,000 MCG Tab PO SCH (08:00)
[2023-03-31] MEDS: Lactobacillus Rhamnosus GG (Probiotic) Cap PO SCH ×2 (08:01→20:30)
[2023-03-31] MEDS: busPIRone 10 MG Tab PO SCH ×3 (08:01→20:30)
[2023-03-31] MEDS: Folic Acid 1 MG Tab PO SCH (08:01)
[2023-03-31] MEDS: Thiamine 100 MG Tab PO SCH (08:01)
[2023-03-31 08:51] LABS: HEMATOCRIT 25.2 % (38.4-49.7); HEMOGLOBIN 8.1 g/dL (12.9-16.9); MEAN CORPUSCULAR HEMOGLOBIN 33.6 pg (31.6-35.5); MEAN CORPUSCULAR HGB CONC 32.1 g/dL (31.6-35.5); MEAN CORPUSCULAR VOLUME 104.6 fL (81.4-99.0); RED BLOOD CELL COUNT 2.41 M/uL (4.14-5.76); WHITE BLOOD CELL COUNT,WBC 4.6 K/uL (3.2-11.0)
[2023-03-31 09:06] LABS: CALCIUM 8.1 mg/dL (8.5-10.1); CREATININE 1.1 mg/dL (0.8-1.3); EST CRCL DRUG DOSING (CG) 56.44 mL/min; POTASSIUM,K 4.2 mmol/L (3.6-5.2)
[2023-03-31 09:07] LABS: ANION GAP 11.2 mmol/L (5.0-14.0)
[2023-03-31] MEDS: Digoxin 125 MCG Tab PO SCH (13:44)
[2023-03-31] MEDS ORDERED: Bisacodyl 5 MG Tab PO ONE (15:00)
[2023-03-31] MEDS: Sodium Ferric Gluconate Cmplex 250 MG in Sodium Chloride 0.9% 100 ML IV SCH (15:49)
[2023-03-31] MEDS ORDERED: Polyethylene Glycol 3350 Powder 238 GM Bot PO ONE (16:00)
[2023-03-31] MEDS: Enoxaparin 40 MG/0.4 ML Syringe SUBCUT SCH (17:04)
[2023-03-31] MEDS ORDERED: Haloperidol Lactate 5 MG/ML SDV IVPUSH PRN (19:39)
[2023-03-31] MEDS: LORazepam 0.5 MG Tab PO PRN (20:29)
[2023-03-31] MEDS: Doxycycline 100 MG Cap PO SCH (20:30)
[2023-03-31] MEDS: traZODone 50 MG Tab PO SCH (20:30)
[2023-03-31] MEDS: Gabapentin 300 MG Cap PO SCH (20:30)
[2023-04-01] MEDS: oxyCODONE 5 MG Tab PO PRN ×2 (00:14→04:32)
[2023-04-01] MEDS: LORazepam 0.5 MG Tab PO PRN ×2 (00:15→05:24)
[2023-04-01 04:33] LABS: HEMATOCRIT 22.7 % (38.4-49.7); HEMOGLOBIN 7.4 g/dL (12.9-16.9); MEAN CORPUSCULAR HEMOGLOBIN 33.6 pg (31.6-35.5); MEAN CORPUSCULAR HGB CONC 32.6 g/dL (31.6-35.5); MEAN CORPUSCULAR VOLUME 103.2 fL (81.4-99.0); RED BLOOD CELL COUNT 2.2 M/uL (4.14-5.76); WHITE BLOOD CELL COUNT,WBC 5.6 K/uL (3.2-11.0)
[2023-04-01 04:56] LABS: C-REACTIVE PROTEIN 8.98 mg/dL (0.0-0.3); CALCIUM 7.9 mg/dL (8.5-10.1); CREATININE 0.9 mg/dL (0.8-1.3); EST CRCL DRUG DOSING (CG) 68.98 mL/min; POTASSIUM,K 4.5 mmol/L (3.6-5.2)
[2023-04-01 04:58] LABS: ANION GAP 9.5 mmol/L (5.0-14.0)
[2023-04-01] MEDS: Pantoprazole 40 MG Tab.CR PO SCH (07:22)
[2023-04-01] MEDS ORDERED: Sodium Chloride 0.9% 1,000 ML IV SCH (08:00)
[2023-04-01] MEDS ORDERED: Propofol 200 MG/20 ML SDV ONE (10:16)
[2023-04-01] MEDS ORDERED: fentaNYL 50 MCG/ML SDV ONE (10:16)
[2023-04-01] MEDS ORDERED: Midazolam 1 MG/ML 2 ML SDV ONE (10:16)
[2023-04-01] MEDS: Metoprolol Succinate 50 MG Tab.ER PO SCH (13:46)
[2023-04-01] MEDS: Doxycycline 100 MG Cap PO SCH ×2 (13:46→20:08)
[2023-04-01] MEDS: Lactobacillus Rhamnosus GG (Probiotic) Cap PO SCH ×2 (13:47→20:07)
[2023-04-01] MEDS: Folic Acid 1 MG Tab PO SCH (13:47)
[2023-04-01] MEDS: Furosemide 40 MG Tab PO SCH (13:47)
[2023-04-01] MEDS: Multivitamins with Iron/Calcium/Folic Acid/Minerals Tab PO SCH (13:47)
[2023-04-01] MEDS: Digoxin 125 MCG Tab PO SCH (13:48)
[2023-04-01] MEDS: Bacitracin Oint 28.35 GM Tube TOP SCH (13:48)
[2023-04-01] MEDS: busPIRone 10 MG Tab PO SCH ×3 (13:48→20:07)
[2023-04-01] MEDS: Cyanocobalamin (Vitamin B12) 1,000 MCG Tab PO SCH (13:48)
[2023-04-01] MEDS: Thiamine 100 MG Tab PO SCH (13:48)
[2023-04-01] MEDS: Sodium Ferric Gluconate Cmplex 250 MG in Sodium Chloride 0.9% 100 ML IV SCH ×2 (14:52→16:07)
[2023-04-01] MEDS ORDERED: Enoxaparin 30 MG/0.3 ML Syringe SUBCUT SCH (18:00)
[2023-04-01] MEDS: Gabapentin 300 MG Cap PO SCH (20:08)
[2023-04-01] MEDS: traZODone 50 MG Tab PO SCH (20:08)
[2023-04-02 06:16] LABS: HEMATOCRIT 24.3 % (38.4-49.7); HEMOGLOBIN 7.9 g/dL (12.9-16.9); MEAN CORPUSCULAR HEMOGLOBIN 33.9 pg (31.6-35.5); MEAN CORPUSCULAR HGB CONC 32.5 g/dL (31.6-35.5); MEAN CORPUSCULAR VOLUME 104.3 fL (81.4-99.0); RED BLOOD CELL COUNT 2.33 M/uL (4.14-5.76); WHITE BLOOD CELL COUNT,WBC 5.8 K/uL (3.2-11.0)
[2023-04-02 06:28] LABS: CALCIUM 8.4 mg/dL (8.5-10.1); CREATININE 0.9 mg/dL (0.8-1.3); EST CRCL DRUG DOSING (CG) 68.98 mL/min; POTASSIUM,K 4.2 mmol/L (3.6-5.2)
[2023-04-02 06:38] LABS: ANION GAP 10.2 mmol/L (5.0-14.0)
[2023-04-02] MEDS: Pantoprazole 40 MG Tab.CR PO SCH (07:36)
[2023-04-02] MEDS: Acetaminophen 325 MG Tab PO PRN (08:54)
[2023-04-02] MEDS: Lactobacillus Rhamnosus GG (Probiotic) Cap PO SCH (08:55)
[2023-04-02] MEDS: Thiamine 100 MG Tab PO SCH (08:56)
[2023-04-02] MEDS: Cyanocobalamin (Vitamin B12) 1,000 MCG Tab PO SCH (08:56)
[2023-04-02] MEDS: Furosemide 40 MG Tab PO SCH (08:56)
[2023-04-02] MEDS: Doxycycline 100 MG Cap PO SCH (08:56)
[2023-04-02] MEDS: busPIRone 10 MG Tab PO SCH ×2 (08:56→13:50)
[2023-04-02] MEDS: Multivitamins with Iron/Calcium/Folic Acid/Minerals Tab PO SCH (08:56)
[2023-04-02] MEDS: Bacitracin Oint 28.35 GM Tube TOP SCH (08:57)
[2023-04-02] MEDS: Metoprolol Succinate 50 MG Tab.ER PO SCH (08:58)
[2023-04-02] MEDS: Folic Acid 1 MG Tab PO SCH (09:01)
[2023-04-02 10:39] VITALS: BP 124/71
[2023-04-02] MEDS ORDERED: Sodium Ferric Gluconate Cmplex 250 MG in Sodium Chloride 0.9% 100 ML IV SCH (11:00)
[2023-04-02] MEDS: oxyCODONE 5 MG Tab PO PRN (11:32)
[2023-04-02] MEDS: Digoxin 125 MCG Tab PO SCH (12:57)
[2023-04-02 12:59] VITALS: PULSE 77
== END 2023-04-02 16:06 | disposition home health service (06) | DRG 812 ==
LOC: JP.ED 10:50 → JP.MS 15:48
PROVIDERS: ADMIT Internal Medicine; ATTEND Internal Medicine
PROC: 30233N1 Transfusion of Nonautologous Red Blood Cells into Peripheral Vein, Percutaneous Approach (ICD-10-PCS; 2023-03-30)
PROC: 0DB78ZX Excision of Stomach, Pylorus, Via Natural or Artificial Opening Endoscopic, Diagnostic (ICD-10-PCS; principal; 2023-04-01)
PROC: 0DBL8ZX Excision of Transverse Colon, Via Natural or Artificial Opening Endoscopic, Diagnostic (ICD-10-PCS; 2023-04-01)
PROC: 0DB48ZX Excision of Esophagogastric Junction, Via Natural or Artificial Opening Endoscopic, Diagnostic (ICD-10-PCS; 2023-04-01)
DX: D50.9 Iron deficiency anemia, unspecified (principal); L03.115 Cellulitis of right lower limb; L97.911 Non-pressure chronic ulcer of unspecified part of right lower leg limited to breakdown of skin; I50.22 Chronic systolic (congestive) heart failure; Z79.899 Other long term (current) drug therapy; Z95.810 Presence of automatic (implantable) cardiac defibrillator; D84.9 Immunodeficiency, unspecified; I42.9 Cardiomyopathy, unspecified; D53.9 Nutritional anemia, unspecified; Z20.822 Contact with and (suspected) exposure to COVID-19; K70.30 Alcoholic cirrhosis of liver without ascites; K21.9 Gastro-esophageal reflux disease without esophagitis; F41.9 Anxiety disorder, unspecified; I25.10 Atherosclerotic heart disease of native coronary artery without angina pectoris; I50.9 Heart failure, unspecified; Z96.649 Presence of unspecified artificial hip joint; K63.5 Polyp of colon; N18.9 Chronic kidney disease, unspecified; M19.90 Unspecified osteoarthritis, unspecified site; Z95.5 Presence of coronary angioplasty implant and graft; Z98.890 Other specified postprocedural states
CPT/HCPCS: 36415; 71045 ×2; 80053; 80162; 80307; 81001; 83605; 84145; 85025; 86140; 87040 ×2; 96365; 96367; 96375; 99285 ×2; J3010; J3370; J3490; J7050; J7120; U0002; 36430; 80048; 80202; 82607; 82728; 82746; 83550; 85027; 86850; 86900; 86901; 86920; 86922; 88305; 88342; 93005; 93010; 93926-26; 93926-RT; 97110-GP; 97161-GP; 99222; 99232; 99238; A9270-GY; J0713; J1630; J1650; J2250; J2704; J2916; J7030; P9016

== ENCOUNTER 2023-06-30 08:32 | Emergency (ER) | payer MEDICAID, MEDICARE ==
[2023-06-30] MEDS ORDERED: LORazepam 2 MG/ML SDV IM ONE (09:00)
[2023-06-30 09:16] LABS: BASE EXCESS VENOUS 1.9 mm/L; BICARBONATE,VENOUS 26.2 mmol/L; CARBOXYHEMOGLOBIN 3.7 % (0.0-1.6); METHEMOGLOBIN 0.9 %; O2 SATURATION VENOUS 63.4; OXYHEMOGLOBIN 60.5 %; PCO2 VENOUS 42.4 mm/Hg; PH,VENOUS 7.407 (7.350-7.450); TOTAL HEMOGLOBIN 8.4 g/dL (13.5-18.0)
[2023-06-30 09:17] LABS: HEMATOCRIT 23.3 % (38.4-49.7); MEAN CORPUSCULAR HEMOGLOBIN 36.4 pg (31.6-35.5); MEAN CORPUSCULAR HGB CONC 34.3 g/dL (31.6-35.5); MEAN CORPUSCULAR VOLUME 105.9 fL (81.4-99.0); RED BLOOD CELL COUNT 2.2 M/uL (4.14-5.76); WHITE BLOOD CELL COUNT,WBC 3.9 K/uL (3.2-11.0)
[2023-06-30 09:19] LABS: PO2 VENOUS 36.8 mm/Hg
[2023-06-30 09:38] LABS: PROTHROMBIN TIME 10.4 sec (9.2-10.6)
[2023-06-30 09:57] LABS: A/G RATIO 1.1 (1.2-2.2); ALANINE AMINOTRANSFERASE,ALT 28 U/L (12-78); ALBUMIN 3.4 g/dL (3.4-5.0); ALKALINE PHOSPHATASE 112 U/L (46-116); ANION GAP 9.8 mmol/L (5.0-14.0); ASPARTATE AMNIOTRANSFERASE,AST 60 U/L (15-37); BILIRUBIN TOTAL 1.1 mg/dL (0.2-1.0); BLOOD UREA NITROGEN,BUN 38 mg/dL (7-18); CALCIUM 9.3 mg/dL (8.5-10.1); CARBON DIOXIDE,CO2 28 mmol/L (21-32); CHLORIDE,CL 104 mmol/L (100-108); CREATININE 2.1 mg/dL (0.8-1.3); EST CRCL DRUG DOSING (CG) 30.66 mL/min; ESTIMATED GFR 34 mL/min (>60); GLUCOSE RANDOM 117 mg/dL (74-106); PRO B-TYPE NATRIUR PEPT,BNPPRO 7152 pg/mL (5-125); PROTEIN TOTAL,TP 6.6 g/dL (6.4-8.2); SODIUM,NA 142 mmol/L (140-148)
[2023-06-30 10:03] LABS: TROPONIN I HIGH SENSITIVITY 60.1 pg/mL (<=60.3)
[2023-06-30 12:22] LABS: APPEARANCE,URINE CLEAR (CLEAR); BILIRUBIN,URINE NEGATIVE (NEGATIVE); COLOR,URINE YELLOW (YELLOW); GLUCOSE,URINE NEGATIVE (NEGATIVE); KETONES,URINE NEGATIVE (NEGATIVE); LEUKOCYTE ESTERASE,URINE NEGATIVE (NEGATIVE); NITRITE,URINE NEGATIVE (NEGATIVE); OCCULT BLOOD,URINE SMALL (NEGATIVE); PH,URINE 5.5 (5.0-8.0); PROTEIN,URINE 30 mg/dL (NEGATIVE); UROBILINOGEN,URINE 0.2 EU/dL (0.2-1.0)
[2023-06-30 12:23] LABS: AMPHETAMINES SCREEN, URINE NEGATIVE (NEGATIVE); BARBITURATE SCREEN,URINE NEGATIVE (NEGATIVE); BENZODIAZEPINES SCREEN,URINE NEGATIVE (NEGATIVE); METHADONE SCREEN, URINE NEGATIVE (NEGATIVE); METHAMPHETAMINES SCREEN, URINE NEGATIVE (NEGATIVE); OXYCODONE SCREEN,URINE NEGATIVE (NEGATIVE); PROPOXYPHENE SCREEN,URINE NEGATIVE (NEGATIVE); THC SCREEN,URINE 50 NG/ML NEGATIVE (NEGATIVE)
[2023-06-30 12:38] LABS: RBC,URINE 0-5 (0-5); WBC,URINE 0-5 (0-5)
[2023-06-30 12:39] LABS: AMORPHOUS SEDIMENT,URINE FEW; BACTERIA,URINE NOT SEEN; EPITHELIAL CELLS,URINE RARE; MUCUS,URINE NOT SEEN
[2023-06-30 19:16] VITALS: BP 157/92; PULSE 81
== END 2023-06-30 22:17 | disposition critical access hospital (66) ==
LOC: JP.ED 08:32
DX: D53.9 Nutritional anemia, unspecified (principal); D69.6 Thrombocytopenia, unspecified; N28.9 Disorder of kidney and ureter, unspecified; K21.9 Gastro-esophageal reflux disease without esophagitis; M19.90 Unspecified osteoarthritis, unspecified site; Z79.899 Other long term (current) drug therapy; W19.XXXA Unspecified fall, initial encounter; Y93.01 Activity, walking, marching and hiking; Y92.009 Unspecified place in unspecified non-institutional (private) residence as the place of occurrence of the external cause
CPT/HCPCS: 36415; 51701; 70450; 71045; 80053; 80305; 80307; 81001; 82803; 83605; 83690; 83880; 84484; 85027; 85610; 93005; 96372; 99285; J2060; 93010; 99284

== ENCOUNTER 2023-08-19 15:05 | Emergency (ER) | payer MEDICARE ==
[2023-08-19] MEDS ORDERED: Sodium Chloride 0.9% 10 ML Syringe FLUSH PRN (16:01)
[2023-08-19 16:25] LABS: BASOPHILS ABSOLUTE AUTO 0.06 K/uL (0.00-0.10); BASOPHILS PERCENT AUTO 1.1 % (0.1-1.3); EOSINOPHILS ABSOLUTE AUTO 0.21 K/uL (0.00-0.40); EOSINOPHILS PERCENT AUTO 3.9 % (0.0-5.4); HEMATOCRIT 23.3 % (38.4-49.7); HEMOGLOBIN 7.7 g/dL (12.9-16.9); IMMATURE GRAN ABSOLUTE AUTO 0.03 K/uL (0.00-0.23); IMMATURE GRAN PERCENT AUTO 0.6 % (0.0-0.7); LYMPHOCYTES ABSOLUTE AUTO 1.19 K/uL (0.8-3.3); MEAN CORPUSCULAR HEMOGLOBIN 34.1 pg (31.6-35.5); MEAN CORPUSCULAR VOLUME 103.1 fL (81.4-99.0); MONOCYTES ABSOLUTE AUTO 1.11 K/uL (0.20-0.90); MONOCYTES PERCENT AUTO 20.5 % (3.3-12.6); NEUTROPHILS ABSOLUTE AUTO 2.82 K/uL (1.0-7.6); NEUTROPHILS PERCENT AUTO 51.9 % (40.0-78.1); PLATELET COUNT,PLT 114 K/uL (130-375); RED BLOOD CELL COUNT 2.26 M/uL (4.14-5.76); WHITE BLOOD CELL COUNT,WBC 5.4 K/uL (3.2-11.0)
[2023-08-19 17:00] LABS: IRON,FE 39 ug/dL (65-175); PERCENT FE SATURATION 22 % (20-55); TOTAL IRON BINDING CAPACITY 180 ug/dl (250-450)
[2023-08-19 17:03] VITALS: PULSE 62
[2023-08-19] MEDS ORDERED: Sodium Chloride 0.9% 1,000 ML IV ONE (17:17)
[2023-08-19 17:23] LABS: A/G RATIO 0.8 (1.2-2.2); ALANINE AMINOTRANSFERASE,ALT 52 U/L (12-78); ALBUMIN 2.7 g/dL (3.4-5.0); ALKALINE PHOSPHATASE 103 U/L (46-116); ASPARTATE AMNIOTRANSFERASE,AST 114 U/L (15-37); BILIRUBIN TOTAL 0.2 mg/dL (0.2-1.0); BLOOD UREA NITROGEN,BUN 32 mg/dL (7-18); CALCIUM 9.8 mg/dL (8.5-10.1); CARBON DIOXIDE,CO2 33 mmol/L (21-32); CHLORIDE,CL 94 mmol/L (100-108); CREATININE 2.1 mg/dL (0.8-1.3); EST CRCL DRUG DOSING (CG) 28.47 mL/min; ESTIMATED GFR 34 mL/min (>60); GLUCOSE RANDOM 101 mg/dL (74-106); POTASSIUM,K 3.6 mmol/L (3.6-5.2); SODIUM,NA 130 mmol/L (140-148)
[2023-08-19 17:24] LABS: ANION GAP 6.6 mmol/L (5.0-14.0)
[2023-08-19 17:27] LABS: MAGNESIUM 1.8 mg/dL (1.8-2.4); PHOSPHORUS 1.9 mg/dL (2.5-4.9)
[2023-08-19 18:32] VITALS: BP 113/68
== END 2023-08-19 18:45 | disposition home or self-care (01) ==
LOC: JP.ED 15:05
DX: F10.129 Alcohol abuse with intoxication, unspecified (principal); E86.0 Dehydration; E87.20 Acidosis, unspecified; K70.30 Alcoholic cirrhosis of liver without ascites; D69.6 Thrombocytopenia, unspecified; D53.9 Nutritional anemia, unspecified; K21.9 Gastro-esophageal reflux disease without esophagitis; N18.9 Chronic kidney disease, unspecified
CPT/HCPCS: 36415; 80053; 80307; 82140; 82550; 82728; 83550; 83605; 83735; 84100; 85025; 86850; 86900; 86901; 99283; J3490; J7030; 99285

== ENCOUNTER 2023-10-29 13:21 | Emergency (ER) | payer MEDICARE ==
[2023-10-29 13:32] VITALS: BP 121/63; PULSE 86
[2023-10-29 14:14] LABS: BASOPHILS ABSOLUTE AUTO 0.07 K/uL (0.00-0.10); BASOPHILS PERCENT AUTO 1.8 % (0.1-1.3); EOSINOPHILS ABSOLUTE AUTO 0.09 K/uL (0.00-0.40); EOSINOPHILS PERCENT AUTO 2.3 % (0.0-5.4); HEMATOCRIT 26.7 % (38.4-49.7); HEMOGLOBIN 9.5 g/dL (12.9-16.9); IMMATURE GRAN ABSOLUTE AUTO 0.03 K/uL (0.00-0.23); IMMATURE GRAN PERCENT AUTO 0.8 % (0.0-0.7); LYMPHOCYTES ABSOLUTE AUTO 1.49 K/uL (0.8-3.3); LYMPHOCYTES PERCENT AUTO 37.3 % (11.4-47.7); MEAN CORPUSCULAR HEMOGLOBIN 36.1 pg (31.6-35.5); MEAN CORPUSCULAR HGB CONC 35.6 g/dL (31.6-35.5); MEAN CORPUSCULAR VOLUME 101.5 fL (81.4-99.0); MONOCYTES ABSOLUTE AUTO 1.01 K/uL (0.20-0.90); MONOCYTES PERCENT AUTO 25.3 % (3.3-12.6); NEUTROPHILS ABSOLUTE AUTO 1.31 K/uL (1.0-7.6); NEUTROPHILS PERCENT AUTO 32.5 % (40.0-78.1); PLATELET COUNT,PLT 233 K/uL (130-375); RED BLOOD CELL COUNT 2.63 M/uL (4.14-5.76)
[2023-10-29 14:46] LABS: A/G RATIO 0.9 (1.2-2.2); ALANINE AMINOTRANSFERASE,ALT 37 U/L (12-78); ALBUMIN 3.3 g/dL (3.4-5.0); ALKALINE PHOSPHATASE 121 U/L (46-116); ASPARTATE AMNIOTRANSFERASE,AST 60 U/L (15-37); BILIRUBIN TOTAL 0.5 mg/dL (0.2-1.0); BLOOD UREA NITROGEN,BUN 25 mg/dL (7-18); CALCIUM 9.6 mg/dL (8.5-10.1); CARBON DIOXIDE,CO2 25 mmol/L (21-32); CHLORIDE,CL 95 mmol/L (100-108); CREATININE 1.3 mg/dL (0.8-1.3); ESTIMATED GFR 60 mL/min (>60); GLUCOSE RANDOM 97 mg/dL (74-106); POTASSIUM,K 3.4 mmol/L (3.6-5.2); SODIUM,NA 134 mmol/L (140-148)
[2023-10-29 14:47] LABS: ANION GAP 17.4 mmol/L (5.0-14.0)
== END 2023-10-29 15:40 | disposition home or self-care (01) ==
LOC: JP.ED 13:21
DX: F10.920 Alcohol use, unspecified with intoxication, uncomplicated (principal); K21.9 Gastro-esophageal reflux disease without esophagitis; Z79.899 Other long term (current) drug therapy
CPT/HCPCS: 36415; 80053; 80307; 83605; 85025; 99285

== ENCOUNTER 2023-11-18 13:49 | Emergency (ER) | payer MEDICARE ==
[2023-11-18 13:52] VITALS: BP 124/70; PULSE 91
== END 2023-11-18 16:15 | disposition home or self-care (01) ==
LOC: JP.ED 13:49
DX: F10.10 Alcohol abuse, uncomplicated (principal); K21.9 Gastro-esophageal reflux disease without esophagitis; Z79.899 Other long term (current) drug therapy; W19.XXXA Unspecified fall, initial encounter
CPT/HCPCS: 70450; 70450-26; 72125; 72125-26; 72128; 72128-26; 76377; 99284

== ENCOUNTER 2023-12-20 11:44 | Emergency (ER) | payer MEDICARE | END 2023-12-20 11:46 | disposition EXP | LOC: JP.ED 11:44 | DX: I46.9 Cardiac arrest, cause unspecified (principal); I50.9 Heart failure, unspecified; I25.10 Atherosclerotic heart disease of native coronary artery without angina pectoris; N18.9 Chronic kidney disease, unspecified; Z79.899 Other long term (current) drug therapy | CPT/HCPCS: 31500; 92950; 99285-25 ==